=== PATIENT | male | born 1935 | race Caucasian/White ===

== ENCOUNTER → 2016-04-12 | Outpatient (CLI) | payer MEDICARE, OTHER ==
[2016-04-12 11:46] LABS: APPEARANCE,URINE CLEAR; BILIRUBIN,URINE NEGATIVE (NEGATIVE); GLUCOSE, URINE NEGATIVE (NEGATIVE); KETONES,URINE NEGATIVE (NEGATIVE); LEUKOCYTE ESTERASE,URINE NEGATIVE (NEGATIVE); NITRITE,URINE NEGATIVE (NEGATIVE); PROTEIN,URINE NEGATIVE (NEGATIVE); URINE SPECIFIC GRAVITY 1.006; UROBILINOGEN,URINE NEGATIVE mg/dL (<2.0)
[2016-04-12 13:19] LABS: HEMATOCRIT 47.1 % (37.9-51.0); HEMOGLOBIN 15.3 g/dL (13.5-17.0); HGB HCT DIFFERENCE -1.2; MEAN CORPUSCULAR HEMOGLOBIN 29.5 pg (27.0-33.4); MEAN CORPUSCULAR HGB CONC 32.6 g/dL (32.0-36.0); MEAN CORPUSCULAR VOLUME 91 fl (80-97); RED CELL DISTRIBUTION WIDTH 14.2 % (11.5-14.0); WHITE BLOOD COUNT 7.2 10^3/uL (4.0-10.5)
[2016-04-12 13:22] LABS: ANION GAP 13 (5-19); BLOOD UREA NITROGEN 31 mg/dL (7-20); CALCIUM 9.3 mg/dL (8.4-10.2); CARBON DIOXIDE 32 mmol/L (22-30); CHLORIDE 101 mmol/L (98-107); CREATININE RESULT 2.32 mg/dL (0.52-1.25); GLUCOSE 119 mg/dL (75-110); SODIUM 145.9 mmol/L (137-145)
== END ==
LOC: OD 10:17
PROVIDERS: ATTEND Internal Medicine Nephrology
DX: I12.9 Hypertensive chronic kidney disease with stage 1 through stage 4 chronic kidney disease, or unspecified chronic kidney disease (principal); N18.3 Chronic kidney disease, stage 3 (moderate); D64.9 Anemia, unspecified
CPT/HCPCS: 36415; 80048; 81001; 85027

== ENCOUNTER 2016-05-01 10:38 | Emergency (ER) | payer MEDICARE, OTHER ==
--- NOTE | 2016-05-01 10:49 | ER Document Report ---
ED Medical Screen (RME) - General Stated Complaint: POSSIBLE HIGH BLOOD PRESSURE Time seen by provider: 10:48 Mode of Arrival: Ambulatory Information source: Patient Notes: 81-year-old male with a history of hypertension saw Laron Del Cid MD on Tuesday. He has been having unstable erratic blood pressure readings for the past [address] Mulligan increase the clonidine to 0.3 mg stop the amlodipine and he continues to take metoprolol and lasix. Blood pressure last night and this morning was triple over triple and in triage it is 149/87. The only symptom he had was feeling sluggish. TRAVEL OUTSIDE OF THE [place] IN LAST 30 DAYS: No - Related Data Allergies/Adverse Reactions: No Known Drug Allergies Allergy (Verified 02/26/14 15:15) Past Medical History - Past Medical History Cardiac Medical History: Reports: Hx Hypercholesterolemia, Hx Hypertension Denies: Hx Coronary Artery Disease, Hx Heart Attack, Hx Heart Murmur Pulmonary Medical History: Reports: Hx Pneumonia Denies: Hx Asthma, Hx COPD, Hx Respiratory Failure, Hx Sleep Apnea, Hx Tuberculosis Renal/ Medical History: Reports: Hx Benign Prostatic Hyperplasia Malignancy Medical History: Reports Hx Lymphoma Musculoskeltal Medical History: Reports Hx Arthritis - All over Past Surgical History: Reports: Hx Cholecystectomy, Hx Kidney (Renal Surgery) - L NEPHRECTOMY, Hx Orthopedic Surgery - L KNEE - Immunizations Hx Diphtheria, Pertussis, Tetanus Vaccination: No Physical Exam - Vital signs Vitals: Temp Pulse Resp BP 97.7 F 66 20 149/87 H 05/01/16 10:47 05/01/16 10:47 05/01/16 10:47 05/01/16 10:47 Course - Vital Signs Vital signs: Temp Pulse Resp BP Pulse Ox 97.7 F 66 20 149/87 H 96 05/01/16 10:47 05/01/16 10:47 05/01/16 10:47 05/01/16 10:47 05/01/16 10:49
[2016-05-01 11:46] LABS: ABSOLUTE EOSINOPHILS # (AUTO) 0.1 10^3/uL (0.0-0.6); ABSOLUTE LYMPHOCYTES (AUTO) 0.8 10^3/uL (0.5-4.7); ABSOLUTE MONOCYTES (AUTO) 0.4 10^3/uL (0.1-1.4); ABSOLUTE NEUT (AUTO) 3.6 10^3/uL (1.7-8.2); BASOPHILS % (AUTO) 0.5 % (0-2); HEMATOCRIT 43.1 % (37.9-51.0); HEMOGLOBIN 13.9 g/dL (13.5-17.0); HGB HCT DIFFERENCE -1.4; LYMPHOCYTES % (AUTO) 16.7 % (13-45); MEAN CORPUSCULAR HEMOGLOBIN 29.4 pg (27.0-33.4); MEAN CORPUSCULAR HGB CONC 32.3 g/dL (32.0-36.0); MEAN CORPUSCULAR VOLUME 91 fl (80-97); MONOCYTES % (AUTO) 8.8 % (3-13); RED BLOOD COUNT 4.73 10^6/uL (4.35-5.55); RED CELL DISTRIBUTION WIDTH 13.8 % (11.5-14.0); WHITE BLOOD COUNT 4.9 10^3/uL (4.0-10.5)
[2016-05-01] MEDS ORDERED: CLONIDINE HCL 0.1 MG TABLET PO ONE (11:57)
[2016-05-01 12:03] LABS: ALANINE AMINOTRANSFERASE 23 U/L (21-72); ALBUMIN 3.4 g/dL (3.5-5.0); ALKALINE PHOSPHATASE 61 U/L (38-126); ANION GAP 10 (5-19); ASPARTATE AMINO TRANSFERASE 19 U/L (17-59); BLOOD UREA NITROGEN 27 mg/dL (7-20); CALCIUM 8.9 mg/dL (8.4-10.2); CARBON DIOXIDE 33 mmol/L (22-30); CHLORIDE 103 mmol/L (98-107); CREATININE RESULT 2.12 mg/dL (0.52-1.25); GLUCOSE 90 mg/dL (75-110); POTASSIUM 3.7 mmol/L (3.6-5.0); SODIUM 145.8 mmol/L (137-145); TOTAL PROTEIN 6.4 g/dL (6.3-8.2)
[2016-05-01 12:10] LABS: ADD ON TESTING BLD IN LAB ACKNOWLEDGE
--- NOTE | 2016-05-01 12:12 | ER Document Report ---
ED Blood Pressure Problem - General Mode of Arrival: Ambulatory Information source: Patient TRAVEL OUTSIDE OF THE [place] IN LAST 30 DAYS: No - HPI Patient complains to provider of: High blood pressure Onset: This morning Associated symptoms: Other - see above <KALI GARCÍA - Last Filed: 05/01/16 12:45> <GALLO WARNER - Last Filed: 05/01/16 14:16> - General Chief Complaint: Blood Pressure Problem Stated Complaint: POSSIBLE HIGH BLOOD PRESSURE Notes: 81 year old male with history of hypertension and left kidney nephrectomy presents to the ED complaining of an elevated blood pressure that started earlier this morning. Patient states that last week he stopped taking Amlodipine and his Clonadine was adjusted from 0.2 mg to 0.3 mg BID. Patient states he takes his morning dose at 07:00 (took medication prior to arrival) and his afternoon dose at 15:00. Patient has noticed that his blood pressure becomes elevated during the late evenings (220 systolic last night). He states that his blood pressure usually stays around 130/85, but has been varying even before having his medication changed. Patient denies any symptoms at this time. Patient's primary care provider is Dr. Timmons and cardiac cath lab technologist is Dr. Mulligan. (KALI GARCÍA) - Related Data Allergies/Adverse Reactions: No Known Drug Allergies Allergy (Verified 05/01/16 10:55) Past Medical History - General Information source: Patient - Social History Smoking Status: Never Smoker Chew tobacco use (# tins/day): Yes Frequency of alcohol use: None Drug Abuse: None Family History: Reviewed & Not Pertinent Patient has suicidal ideation: No Patient has homicidal ideation: No - Past Medical History Cardiac Medical History: Reports: Hx DVT, Hx Hypercholesterolemia, Hx Hypertension, Hx Peripheral Vascular Disease Pulmonary Medical History: Reports: Hx COPD, Hx Pneumonia Renal/ Medical History: Reports: Hx Benign Prostatic Hyperplasia, Hx Renal Insufficiency - stage 3. 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 Musculoskeltal Medical History: Reports Hx Arthritis - All over, Reports Hx Gout Past Surgical History: Reports: Hx Cholecystectomy, Hx Kidney (Renal Surgery) - L NEPHRECTOMY, Hx Orthopedic Surgery - L KNEE, Hx Vascular Surgery - [place] Filter - Immunizations Hx Diphtheria, Pertussis, Tetanus Vaccination: No Hx Pneumococcal Vaccination: 01/02/14 <KALI GARCÍA - Last Filed: 05/01/16 12:45> Review of Systems - Review of Systems Constitutional: See HPI, Weight loss - 50 pound loss EENT: No symptoms reported Cardiovascular: No symptoms reported Respiratory: No symptoms reported Gastrointestinal: No symptoms reported Genitourinary: No symptoms reported Male Genitourinary: No symptoms reported Musculoskeletal: No symptoms reported Skin: No symptoms reported Hematologic/Lymphatic: No symptoms reported Neurological/Psychological: No symptoms reported -: Yes All other systems reviewed and negative <KALI GARCÍA - Last Filed: 05/01/16 12:45> Physical Exam - Vital signs Interpretation: Hypertensive - General General appearance: Alert In distress: None - HEENT Head: Normocephalic, Atraumatic Eyes: Normal Extraocular movements intact: Yes Pupils: PERRL - Respiratory Respiratory status: No respiratory distress Breath sounds: Normal - Cardiovascular Rhythm: Regular Heart sounds: Normal auscultation - Abdominal Inspection: Obese. No: Normal - Back Back: Normal - Extremities General upper extremity: Normal inspection, Normal ROM General lower extremity: Edema - bilateral peripheral edema, Normal ROM. No: Normal inspection - Neurological Neuro grossly intact: Yes - Psychological Associated symptoms: Normal affect, Normal mood - Skin Skin Temperature: Warm Skin Moisture: Dry Skin Color: Normal <KALI GARCÍA - Last Filed: 05/01/16 12:45> <GALLO WARNER - Last Filed: 05/01/16 14:16> - Vital signs Vitals: Temp Pulse Resp BP 97.7 F 66 20 149/87 H 05/01/16 10:47 05/01/16 10:47 05/01/16 10:47 05/01/16 10:47 (KALI GARCÍA) (GALLO WARNER) Course - Laboratory Result Diagrams: 05/01/16 11:25 05/01/16 11:25 <KALI GARCÍA - Last Filed: 05/01/16 12:45> - Laboratory Result Diagrams: 05/01/16 11:25 05/01/16 11:25 <GALLO WARNER - Last Filed: 05/01/16 14:16> - Re-evaluation Re-evalutation: 05/01/16 14:08 After adding 0.1 mg clonidine, the patient's pressure is now 140 systolic. Change his dosing to 0.2 mg every 8 hours through the weekend and see if that keeps him from having the extreme elevation in blood pressure. 02 (GALLO WARNER) - Vital Signs Vital signs: Temp Pulse Resp BP Pulse Ox 97.7 F 66 18 157/95 H 94 05/01/16 10:47 05/01/16 10:47 05/01/16 13:01 05/01/16 13:01 05/01/16 13:01 (KALI GARCÍA) (GALLO WARNER) - Laboratory Laboratory results interpreted by me: 05/01/16 05/01/16 05/01/16 11:25 11:25 12:00 Plt Count 76 L Sodium 145.8 H Carbon Dioxide 33 H BUN 27 H Creatinine 2.12 H Est GFR ( Amer) 37 L Est GFR (Non-Af Amer) 30 L Albumin 3.4 L Urine Protein 30 H (GALLO WARNER) Discharge <KALI GARCÍA - Last Filed: 05/01/16 12:45> <GALLO WARNER - Last Filed: 05/01/16 14:16> - Discharge Clinical Impression: High blood pressure Qualifiers: Hypertension type: essential hypertension Qualified Code(s): I10 - Essential ( primary) hypertension Condition: Stable Disposition: HOME, SELF-CARE Additional Instructions: Change her clonidine dosing to taking 0.2 mg every 8 hours. The next dose will be at 3 PM, and then at 11 PM. Check your blood pressure before each dose at 7 AM, 3 PM, and 11 PM. Right the number and the time down. Follow-up with your doctor Tuesday to review culture blood pressure does when we changed to 2 every 8 hour dosing. RETURN TO THE EMERGENCY ROOM IF ANY NEW OR WORSENING SYMPTOMS. Referrals: ESEQUIEL TIMMONS MD [Primary Care Provider] - Follow up as needed DEISY MULLIGAN MD [ACTIVE STAFF] - 05/03/16 Scribe Attestation: 05/01/16 14:16 I personally performed the services described in the documentation, reviewed and edited the documentation which was dictated to the scribe in my presence, and it accurately records my words and actions. (GALLO WARNER) Scribe Documentation - Scribe Written by Scribe:: Heavenly Washburn, 05/01/2016 12:16 acting as scribe for :: Denys <KALI GARCÍA - Last Filed: 05/01/16 12:45>
[2016-05-01 12:20] LABS: APPEARANCE,URINE CLEAR; BILIRUBIN,URINE NEGATIVE (NEGATIVE); GLUCOSE, URINE NEGATIVE (NEGATIVE); KETONES,URINE NEGATIVE (NEGATIVE); LEUKOCYTE ESTERASE,URINE NEGATIVE (NEGATIVE); NITRITE,URINE NEGATIVE (NEGATIVE); PROTEIN,URINE 30 mg/dL (NEGATIVE); URINE SPECIFIC GRAVITY 1.006; UROBILINOGEN,URINE NEGATIVE mg/dL (<2.0)
[2016-05-01 12:32] LABS: CREATINE KINASE 73 U/L (55-170)
[2016-05-01 12:43] LABS: CREATINE KINASE MB 2.54 ng/mL (<4.55); TROPONIN I < 0.012 ng/mL
[2016-05-01 14:38] VITALS: BP 164/100
--- NOTE | 2016-05-01 15:15 | EKG REPORT ---
SEVERITY:- BORDERLINE ECG - SINUS RHYTHM BORDERLINE LEFT AXIS DEVIATION BORDERLINE T ABNORMALITIES, INFERIOR LEADS : Confirmed by: Kamilla Tiwari MD 01-May-2016 15:15:19
== END 2016-05-01 14:41 | disposition home or self-care (01) ==
LOC: ER 10:38
DX: I10 Essential (primary) hypertension (principal); E78.00 Pure hypercholesterolemia, unspecified; J44.9 Chronic obstructive pulmonary disease, unspecified; Z90.5 Acquired absence of kidney; Z86.718 Personal history of other venous thrombosis and embolism
CPT/HCPCS: 93005; 99284; 36415; 82553; 82550; 85025; 80053; 81001; 84484; 83880; 71010; 93010; A9270

== ENCOUNTER → 2016-05-03 | Outpatient (CLI) | payer MEDICARE, OTHER | LOC: RAD 07:41 | PROVIDERS: ATTEND Internal Medicine | DX: C82.38 Follicular lymphoma grade IIIa, lymph nodes of multiple sites (principal) | CPT/HCPCS: 71250; 74176 ==

== ENCOUNTER → 2016-06-21 | Outpatient (CLI) | payer MEDICARE, OTHER ==
[2016-06-21 13:16] LABS: ANION GAP 16 (5-19); BLOOD UREA NITROGEN 25 mg/dL (7-20); CALCIUM 9.6 mg/dL (8.4-10.2); CARBON DIOXIDE 28 mmol/L (22-30); CHLORIDE 103 mmol/L (98-107); CREATININE RESULT 2.04 mg/dL (0.52-1.25); GLUCOSE 84 mg/dL (75-110); POTASSIUM 3.9 mmol/L (3.6-5.0); SODIUM 146.8 mmol/L (137-145)
== END ==
LOC: OD 10:59
PROVIDERS: ATTEND Urology
DX: I12.9 Hypertensive chronic kidney disease with stage 1 through stage 4 chronic kidney disease, or unspecified chronic kidney disease (principal); N18.3 Chronic kidney disease, stage 3 (moderate); D64.9 Anemia, unspecified; M10.00 Idiopathic gout, unspecified site; N40.0 Benign prostatic hyperplasia without lower urinary tract symptoms
CPT/HCPCS: 36415; 80048; 84153

== ENCOUNTER 2016-09-03 09:24 | Emergency (ER) | payer MEDICARE, OTHER ==
--- NOTE | 2016-09-03 10:49 | ER Document Report ---
ED GI/ - General Mode of Arrival: Ambulatory Information source: Patient TRAVEL OUTSIDE OF THE [place] IN LAST 30 DAYS: No - HPI Patient complains to provider of: Urinary retention Onset: Other - 2 days ago Associated symptoms: Other - see notes above <KALI GARCÍA - Last Filed: 09/03/16 14:31> <BRADYDINAHGORGE - Last Filed: 09/03/16 14:43> - General Chief Complaint: Inability to Void Stated Complaint: UNABLE TO VOID Time Seen by Provider: 09/03/16 09:45 Notes: 81 year old male with history of left nephrectomy, BPH, COPD, hyperlipidemia, and hypertension presents to the ED complaining of urinary retention that started 2 days ago, but worsened yesterday. Patient reports that he has the urge to urinate, but is only able to pass small drops. Patient does not believe that he has a urinary obstruction. Patient has an appointment with a physician restaurant assistant at Dr. Skinner's (urologist) office in 2 days regarding trouble with his foreskin. Patient denies any abdominal pain. Patient was told to come to the ED by Dr. Mulligan's office. PCP: Dr. Timmons Chemical Educator: Dr. Mulligan Urologist: Dr. Skinner (KALI GARCÍA) - Related Data Allergies/Adverse Reactions: No Known Allergies Allergy (Unverified 09/03/16 10:06) Past Medical History - General Information source: Patient - Social History Smoking Status: Never Smoker Chew tobacco use (# tins/day): Yes Frequency of alcohol use: None Drug Abuse: None Family History: Reviewed & Not Pertinent Patient has suicidal ideation: No Patient has homicidal ideation: No - Past Medical History Cardiac Medical History: Reports: Hx DVT, Hx Hypercholesterolemia, Hx Hypertension, Hx Peripheral Vascular Disease Pulmonary Medical History: Reports: Hx COPD, Hx Pneumonia Renal/ Medical History: Reports: Hx Benign Prostatic Hyperplasia, Hx Renal Insufficiency - stage 3. 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 Musculoskeltal Medical History: Reports Hx Arthritis - All over, Reports Hx Gout Past Surgical History: Reports: Hx Cholecystectomy, Hx Kidney (Renal Surgery) - L NEPHRECTOMY, Hx Orthopedic Surgery - L KNEE, Hx Vascular Surgery - [place] Filter - Immunizations Hx Diphtheria, Pertussis, Tetanus Vaccination: No Hx Pneumococcal Vaccination: 01/02/14 <KALI GARCÍA - Last Filed: 09/03/16 14:31> Review of Systems - Review of Systems Constitutional: No symptoms reported EENT: No symptoms reported Cardiovascular: No symptoms reported Respiratory: No symptoms reported Gastrointestinal: No symptoms reported. denies: Abdominal pain Genitourinary: See HPI, Retention Male Genitourinary: No symptoms reported Musculoskeletal: No symptoms reported Skin: No symptoms reported Hematologic/Lymphatic: No symptoms reported Neurological/Psychological: No symptoms reported -: Yes All other systems reviewed and negative <KALI GARCÍA - Last Filed: 09/03/16 14:31> Physical Exam <KALI GARCÍA - Last Filed: 09/03/16 14:31> <GORGE MEADOWS - Last Filed: 09/03/16 14:43> - Vital signs Vitals: Temp Pulse Resp BP Pulse Ox 97.8 F 66 18 179/101 H 97 09/03/16 09:27 09/03/16 09:27 09/03/16 09:27 09/03/16 09:27 09/03/16 09:27 - Notes Notes: GENERAL: Alert, interacts well. No acute distress. HEAD: Normocephalic, atraumatic. EYES: Pupils equal, round, and reactive to light. Extraocular movements intact. ENT: Oral mucosa moist, tongue midline. NECK: Full range of motion. Supple. Trachea midline. LUNGS: Clear to auscultation bilaterally, no wheezes, rales, or rhonchi. No respiratory distress. HEART: Regular rate and rhythm. No murmurs, gallops, or rubs. ABDOMEN: Soft. Non-distended. Bowel sounds present in all 4 quadrants. Suprapubic tenderness to palpation. No masses are palpated. Obese. EXTREMITIES: Moves all 4 extremities spontaneously. No edema, radial and dorsalis pedis pulses 2/4 bilaterally. No cyanosis. NEUROLOGICAL: Alert and oriented x3. Normal speech. PSYCH: Normal affect, normal mood. SKIN: Warm, dry, normal turgor. No rashes or lesions noted. (KALI GARCÍA) Course - Laboratory Result Diagrams: 09/03/16 10:50 09/03/16 10:50 <KALI GARCÍA - Last Filed: 09/03/16 14:31> - Laboratory Result Diagrams: 09/03/16 10:50 09/03/16 10:50 <GORGE MEADOWS - Last Filed: 09/03/16 14:43> - Re-evaluation Re-evalutation: 09/03/16 12:26 CBC unremarkable with the exception of low platelets at 79, BMP shows chronic renal failure with a BUN of 28 and creatinine of 2.4 this is not significantly changed from the past 4 months, urinalysis shows small blood but no signs of infection, Chan catheter was placed and immediately there was 500 mL's of clear yellow urine out and over the past hour another 500 mL's has been obtained. This is consistent with urinary retention from likely obstruction coming from his enlarged prostate. Patient will be discharged home with Chan catheter in place, he has a follow-up appointment with his urologist on Tuesday. (GORGE MEADOWS) - Vital Signs Vital signs: Temp Pulse Resp BP Pulse Ox 97.5 F 59 L 16 170/96 H 94 09/03/16 12:31 09/03/16 12:31 09/03/16 11:15 09/03/16 12:31 09/03/16 12:31 - Laboratory Laboratory results interpreted by me: 09/03/16 09/03/16 09/03/16 10:50 10:50 10:50 RDW 14.2 H Plt Count 79 L Carbon Dioxide 31 H BUN 28 H Creatinine 2.40 H Est GFR ( Amer) 32 L Est GFR (Non-Af Amer) 26 L Urine Blood SMALL H Discharge <KALI GARCÍA - Last Filed: 09/03/16 14:31> <GORGE MEADOWS - Last Filed: 09/03/16 14:43> - Discharge Clinical Impression: Acute urinary retention, Enlarged prostate with urinary retention, Chronic kidney disease (CKD), stage III (moderate) Condition: Stable Disposition: HOME, SELF-CARE Additional Instructions: Chan Catheter Care Tube Position: Keep the catheter connected to the drainage tubing at all times. Avoid pulling on the catheter. Keep the drainage tube taped to the mid- thigh, on top of your leg (not underneath it). Be sure there are no kinks or loops in the tube. Keep the drainage bag below the bladder. When in bed, the drainage bag should hang below the abdomen but should not lie on the floor. The drainage bag has hooks at the top so it can be hung on a chair or bed. Daily Cleaning: Wash your hands with soap and water before and after caring for your catheter. Twice a day, clean yourself where the catheter goes into the urethra. Use a warm, soapy wash cloth to clean around the urethral opening and the first few inches of the catheter. Females should wash from front to back to decrease the risk of infection from fecal material. After washing with soap, rinse the area with water. Do not put powder around the catheter. Apply ointment only if instructed by your doctor or nurse. Follow up if you develop fever or chills, flank or abdominal pain, blood in the urine, or if urine is not draining into the catheter. Please keep your follow-up appointment with your urologist on Tuesday. Referrals: ESEQUIEL TIMMONS MD [Primary Care Provider] - Follow up as needed Scribe Attestation: 09/03/16 14:43 I personally performed the services described in the documentation, reviewed and edited the documentation which was dictated to the scribe in my presence, and it accurately records my words and actions. (GORGE MEADOWS) Scribe Documentation - Scribe Written by Heavenly:: Heavenly Washburn, 09/03/2016 1432 acting as scribe for :: Marni <KALI GARCÍA - Last Filed: 09/03/16 14:31>
[2016-09-03 11:13] LABS: ABSOLUTE LYMPHOCYTES (AUTO) 0.9 10^3/uL (0.5-4.7); ABSOLUTE MONOCYTES (AUTO) 0.4 10^3/uL (0.1-1.4); ABSOLUTE NEUT (AUTO) 4.3 10^3/uL (1.7-8.2); BASOPHILS % (AUTO) 0.5 % (0-2); EOSINOPHILS % (AUTO) 0.6 % (0-6); HEMATOCRIT 45.4 % (37.9-51.0); HEMOGLOBIN 14.5 g/dL (13.5-17.0); HGB HCT DIFFERENCE -1.9; LYMPHOCYTES % (AUTO) 15.3 % (13-45); MEAN CORPUSCULAR HEMOGLOBIN 29.2 pg (27.0-33.4); MEAN CORPUSCULAR VOLUME 91 fl (80-97); RED BLOOD COUNT 4.98 10^6/uL (4.35-5.55); RED CELL DISTRIBUTION WIDTH 14.2 % (11.5-14.0); SEGMENTED NEUTROPHILS % (AUTO) 76.6 % (42-78); WHITE BLOOD COUNT 5.7 10^3/uL (4.0-10.5)
[2016-09-03 11:17] LABS: APPEARANCE,URINE CLEAR; BILIRUBIN,URINE NEGATIVE (NEGATIVE); GLUCOSE, URINE NEGATIVE (NEGATIVE); KETONES,URINE NEGATIVE (NEGATIVE); LEUKOCYTE ESTERASE,URINE NEGATIVE (NEGATIVE); NITRITE,URINE NEGATIVE (NEGATIVE); PROTEIN,URINE NEGATIVE (NEGATIVE); URINE SPECIFIC GRAVITY 1.004; UROBILINOGEN,URINE NEGATIVE mg/dL (<2.0)
[2016-09-03 11:27] LABS: ANION GAP 12 (5-19); BLOOD UREA NITROGEN 28 mg/dL (7-20); CALCIUM 9.3 mg/dL (8.4-10.2); CARBON DIOXIDE 31 mmol/L (22-30); CHLORIDE 102 mmol/L (98-107); GLUCOSE 93 mg/dL (75-110); POTASSIUM 3.9 mmol/L (3.6-5.0); SODIUM 144.6 mmol/L (137-145)
[2016-09-03 12:33] VITALS: BP 170/96
== END 2016-09-03 12:50 | disposition home or self-care (01) ==
LOC: ER 09:24
DX: N40.0 Benign prostatic hyperplasia without lower urinary tract symptoms (principal); R33.9 Retention of urine, unspecified; I12.9 Hypertensive chronic kidney disease with stage 1 through stage 4 chronic kidney disease, or unspecified chronic kidney disease; N18.3 Chronic kidney disease, stage 3 (moderate); J44.9 Chronic obstructive pulmonary disease, unspecified; E78.5 Hyperlipidemia, unspecified
CPT/HCPCS: 36415; 51702; 80048; 81001; 85025; 99284

== ENCOUNTER → 2016-09-20 | Outpatient (CLI) | payer MEDICARE, OTHER ==
[2016-09-20 11:20] LABS: HEMATOCRIT 44.7 % (37.9-51.0); HEMOGLOBIN 14.3 g/dL (13.5-17.0); HGB HCT DIFFERENCE -1.8; MEAN CORPUSCULAR HEMOGLOBIN 28.7 pg (27.0-33.4); MEAN CORPUSCULAR HGB CONC 31.9 g/dL (32.0-36.0); MEAN CORPUSCULAR VOLUME 90 fl (80-97); RED BLOOD COUNT 4.96 10^6/uL (4.35-5.55); RED CELL DISTRIBUTION WIDTH 14.3 % (11.5-14.0); WHITE BLOOD COUNT 6.7 10^3/uL (4.0-10.5)
[2016-09-20 11:28] LABS: APPEARANCE,URINE CLEAR; BILIRUBIN,URINE NEGATIVE (NEGATIVE); CALCIUM OXALATE CRYSTALS,URINE FEW /HPF; GLUCOSE, URINE NEGATIVE (NEGATIVE); KETONES,URINE NEGATIVE (NEGATIVE); LEUKOCYTE ESTERASE,URINE NEGATIVE (NEGATIVE); NITRITE,URINE NEGATIVE (NEGATIVE); PROTEIN,URINE 30 mg/dL (NEGATIVE); URINE SPECIFIC GRAVITY 1.005; UROBILINOGEN,URINE NEGATIVE mg/dL (<2.0)
[2016-09-20 11:51] LABS: ANION GAP 11 (5-19); BLOOD UREA NITROGEN 25 mg/dL (7-20); CALCIUM 8.9 mg/dL (8.4-10.2); CARBON DIOXIDE 31 mmol/L (22-30); CHLORIDE 101 mmol/L (98-107); CREATININE RESULT 2.33 mg/dL (0.52-1.25); GLUCOSE 98 mg/dL (75-110); POTASSIUM 4.1 mmol/L (3.6-5.0); SODIUM 143.3 mmol/L (137-145)
== END ==
LOC: OD 10:38
PROVIDERS: ATTEND Internal Medicine Nephrology
DX: I12.9 Hypertensive chronic kidney disease with stage 1 through stage 4 chronic kidney disease, or unspecified chronic kidney disease (principal); N18.4 Chronic kidney disease, stage 4 (severe); D64.9 Anemia, unspecified
CPT/HCPCS: 36415; 80048; 81001; 85027

== ENCOUNTER → 2016-10-04 | Outpatient (CLI) | payer MEDICARE, OTHER ==
[2016-10-04 14:39] LABS: ANION GAP 10 (5-19); BLOOD UREA NITROGEN 27 mg/dL (7-20); CARBON DIOXIDE 32 mmol/L (22-30); CHLORIDE 101 mmol/L (98-107); CREATININE RESULT 2.23 mg/dL (0.52-1.25); GLUCOSE 86 mg/dL (75-110); POTASSIUM 4.1 mmol/L (3.6-5.0); SODIUM 142.6 mmol/L (137-145)
== END ==
LOC: OD 12:27
PROVIDERS: ATTEND Urology
DX: Z01.812 Encounter for preprocedural laboratory examination (principal); N40.1 Benign prostatic hyperplasia with lower urinary tract symptoms
CPT/HCPCS: 36415; 80048

== ENCOUNTER → 2016-11-15 | Outpatient (CLI) | payer MEDICARE, OTHER ==
--- NOTE | 2016-11-15 08:16 | RADIOLOGY REPORT (SQ) ---
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 Reconstructed coronal and sagittal MPR images reviewed. All images stored on PAC S. All CT scanners at this facility use dose modulation, iterative reconstruction, and/or weight based d osing when appropriate to reduce radiation dose to as low as reasonably achievable (ALARA). [facility]: Dose Right [facility]: CareDose [facility]: Dose Right [facility]: Teradose 4D [facility]: [employer] RADIATION DOSE: 17 mGy. LIMITATIONS: No IV contrast FINDINGS: SKULL BASE: On axial image 12, the basilar tip is enlarged, 7 to 8 mm in diameter. MRA ex am [place] recommended to exclude aneurysm. MAJOR SALIVARY GLANDS: No solid or cystic masses. No inflammatory changes. LYMPHADENOPATHY: No adenopathy. MUCOSAL MASSES OR ASYMMETRY: No mucosal masses or asymmetry. LARYNX/CORDS: No abnormal findings. LUNG APICES: Clear. BONES: Advanced multilevel degenerative disc changes, age-appropriate THYROID: Normal size. No masses. PARANASAL SINUSES: Clear. OTHER: No other significant finding. IMPRESSION: No cervical adenopathy. Prominent basilar artery tip, [place] MRA recommended for follow up TECHNICAL DOCUMENTATION: JOB ID: [id number] Quality ID # [id number]: Final reports with documentation of one or more dose reduction techniques (e.g., Au tomated exposure control, adjustment of the mA and/or kV according to patient size, use of iterative reconstruction technique) 2010 [employer]- All Rights Reserved
--- NOTE | 2016-11-15 08:31 | RADIOLOGY REPORT (SQ) ---
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 Images reviewed with lung, soft tissue, and bone windows. Reconstructed coronal and sagittal MPR images revi ewed. All images stored on PACS. All CT scanners at this facility use dose modulation, iterative reconstruction, and/or weight based d osing when appropriate to reduce radiation dose to as low as reasonably achievable (ALARA). [facility]: Dose Right [facility]: CareDose [facility]: Dose Right [facility]: Teradose 4D [facility]: [employer] RADIATION DOSE: 22.8mGy. LIMITATIONS: None. FINDINGS: LOWER CHEST: See chest CT report. NON-CONTRASTED LIVER, SPLEEN, ADRENALS: Evaluation limited by lack of IV contrast. No identified sign ificant masses. PANCREAS: No masses. No peripancreatic inflammatory changes. GALLBLADDER: Surgically absent. RIGHT KIDNEY AND URETER: Multiple stable cysts. No suspicious masses. Assessment limited by lack of IV contrast. No significant calcifications. No hydronephrosis or hydroureter. LEFT KIDNEY AND URETER: Previously removed. AORTA AND RETROPERITONEUM: IVC filter is noted in place. No aneurysm. No retroperitoneal masses or a denopathy. BOWEL AND PERITONEAL CAVITY: No obvious masses or inflammatory changes. No free fluid. APPENDIX: Normal. PELVIS, BLADDER, AND ABDOMINAL WALL:No abnormal masses. No free fluid. Bladder normal. Small fat con taining umbilical hernia not felt to be significant. BONES: No significant findings. OTHER: No other significant finding. IMPRESSION: Stable abdomen and pelvis CT. No evidence of residual or recurrent lymphoma. TECHNICAL DOCUMENTATION: JOB ID: [id number] Quality ID # [id number]: Final reports with documentation of one or more dose reduction techniques (e.g., Au tomated exposure control, adjustment of the mA and/or kV according to patient size, use of iterative reconstruction technique) 2010 [employer]- All Rights Reserved
--- NOTE | 2016-11-15 09:01 | RADIOLOGY REPORT (SQ) ---
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 Images reviewed with lung, soft tissue and bone windows. Reconstructed coronal and sagittal MPR images reviewed. All images st ored on PACS. All CT scanners at this facility use dose modulation, iterative reconstruction, and/or weight based d osing when appropriate to reduce radiation dose to as low as reasonably achievable (ALARA). [facility]: Dose Right [facility]: CareDose [facility]: Dose Right [facility]: Teradose 4D [facility]: [employer] RADIATION DOSE: 22.8 mGy. LIMITATIONS: No technical limitations. FINDINGS: LUNGS AND PLEURA: Chronic scarring. No masses, infiltrates, pneumothorax. No pleural eff usions, calcifications. HILAR AND MEDIASTINAL STRUCTURES: No identified masses or abnormal nodes. No obvious aneurysm. HEART AND VASCULAR STRUCTURES: No aneurysm. No pericardial effusion. Mild coronary artery calcifica tions. Mild aortic valve calcifications. UPPER ABDOMEN: See abdomen CT report. THYROID AND OTHER SOFT TISSUES: No masses. No adenopathy. BONES: No significant finding. HARDWARE: None in the chest. OTHER: No other significant findings. IMPRESSION: Stable chest CT. No evidence of residual or recurrent lymphoma. TECHNICAL DOCUMENTATION: JOB ID: [id number] Quality ID # [id number]: Final reports with documentation of one or more dose reduction techniques (e.g., Au tomated exposure control, adjustment of the mA and/or kV according to patient size, use of iterative reconstruction technique) 2010 [employer]- All Rights Reserved
== END ==
LOC: RAD 07:26
PROVIDERS: ATTEND Internal Medicine
DX: C82.38 Follicular lymphoma grade IIIa, lymph nodes of multiple sites (principal)
CPT/HCPCS: 70490; 71250; 74176

== ENCOUNTER → 2016-11-23 | Outpatient (CLI) | payer MEDICARE, OTHER ==
[2016-11-23 11:26] LABS: HEMATOCRIT 43.1 % (37.9-51.0); HEMOGLOBIN 14.2 g/dL (13.5-17.0); HGB HCT DIFFERENCE -0.5; MEAN CORPUSCULAR HEMOGLOBIN 30.3 pg (27.0-33.4); MEAN CORPUSCULAR HGB CONC 32.9 g/dL (32.0-36.0); MEAN CORPUSCULAR VOLUME 92 fl (80-97); RED BLOOD COUNT 4.68 10^6/uL (4.35-5.55); RED CELL DISTRIBUTION WIDTH 14.3 % (11.5-14.0); WHITE BLOOD COUNT 6.1 10^3/uL (4.0-10.5)
[2016-11-23 11:42] LABS: ANION GAP 12 (5-19); BLOOD UREA NITROGEN 31 mg/dL (7-20); CALCIUM 9.4 mg/dL (8.4-10.2); CARBON DIOXIDE 29 mmol/L (22-30); CHLORIDE 102 mmol/L (98-107); CREATININE RESULT 2.42 mg/dL (0.52-1.25); GLUCOSE 97 mg/dL (75-110); POTASSIUM 4.2 mmol/L (3.6-5.0); SODIUM 143.2 mmol/L (137-145)
== END ==
LOC: OD 10:27
PROVIDERS: ATTEND Urology
DX: N18.9 Chronic kidney disease, unspecified (principal)
CPT/HCPCS: 36415; 80048; 85027

== ENCOUNTER → 2016-12-16 | Outpatient (CLI) | payer MEDICARE, OTHER ==
[2016-12-16 15:27] LABS: HEMATOCRIT 40.4 % (37.9-51.0); HEMOGLOBIN 13.7 g/dL (13.5-17.0); HGB HCT DIFFERENCE 0.7; MEAN CORPUSCULAR HEMOGLOBIN 30.8 pg (27.0-33.4); MEAN CORPUSCULAR VOLUME 91 fl (80-97); RED BLOOD COUNT 4.45 10^6/uL (4.35-5.55); RED CELL DISTRIBUTION WIDTH 14.9 % (11.5-14.0); WHITE BLOOD COUNT 6.9 10^3/uL (4.0-10.5)
[2016-12-17 10:26] LABS: ANION GAP 12 (5-19); BLOOD UREA NITROGEN 34 mg/dL (7-20); CALCIUM 9.2 mg/dL (8.4-10.2); CARBON DIOXIDE 28 mmol/L (22-30); CHLORIDE 103 mmol/L (98-107); CREATININE RESULT 2.53 mg/dL (0.52-1.25); GLUCOSE 94 mg/dL (75-110); MAGNESIUM 2.3 mg/dL (1.6-2.3); POTASSIUM 4.2 mmol/L (3.6-5.0); SODIUM 142.8 mmol/L (137-145)
== END ==
LOC: OD 13:55
PROVIDERS: ATTEND Internal Medicine Nephrology
DX: I12.9 Hypertensive chronic kidney disease with stage 1 through stage 4 chronic kidney disease, or unspecified chronic kidney disease (principal); N18.3 Chronic kidney disease, stage 3 (moderate); D64.9 Anemia, unspecified; R60.9 Edema, unspecified; M10.00 Idiopathic gout, unspecified site
CPT/HCPCS: 36415; 80048; 83735; 85027

== ENCOUNTER → 2016-12-17 | Outpatient (CLI) | payer MEDICARE, OTHER ==
--- NOTE | 2016-12-17 09:25 | RADIOLOGY REPORT (SQ) ---
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 TECHNIQUE: Axial 3-D [id number] acquisition imaging performed through the brain in the area of t he [place]. Images reformatted using 3-D MIPS. LIMITATIONS: None. FINDINGS: SOURCE IMAGES: 3.5 mm saccular aneurysm at the basilar posterior cerebral bifurcation. 3-D MIP: No occlusions. No significant stenosis. OTHER: No other significant finding. 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 TECHNICAL DOCUMENTATION: JOB ID: [id number] [employer]- All Rights Reserved
== END ==
LOC: RAD 07:35
PROVIDERS: ATTEND Internal Medicine
DX: I67.1 Cerebral aneurysm, nonruptured (principal)
CPT/HCPCS: 70544

== ENCOUNTER 2017-01-04 10:27 | Day surgery (SDC) | payer MEDICARE, OTHER ==
[~2017-01-04 10:27] MED LIST: BUPIVACAINE HCL 0.75% INJ/PF (7.5 MG/1 ML) 10 ML SDV OS PRN; KETOROLAC TROMETHAMINE 0.45% 4 DROP/0.4 ML DROPERETTE OS PRN; LIDOCAINE 3.5% OPH GEL/PF 1 ML/TUBE OS PRN; LIDOCAINE 4% INJ/PF (40 MG/ML) 5 ML AMPUL OS PRN
[2017-01-04] MEDS ORDERED: PHENYLEPHRINE/KETOROLAC 1%-0.3% 4 ML VIAL ONE (10:43)
[2017-01-04] MEDS ORDERED: LIDOCAINE 1% INJ-PF (10 MG/ML) 30 ML SDV ONE (10:44)
[2017-01-04] MEDS ORDERED: CHONDR SU A NA/HYALUR INTRAOC KIT (SURGICARE) ONE (10:44)
[2017-01-04] MEDS: TROPICAMIDE 1% OPH SOLN 3 ML OS PRN ×3 (10:46→11:07)
[2017-01-04] MEDS: CYCLOPENTOLATE 0.2%/PHENYLEPHRINE 1% OPH SOLN 2 ML OS PRN ×3 (10:46→11:07)
[2017-01-04] MEDS: BESIFLOXACIN HCL 0.6% OPH SUSP 5 ML BOTTLE OS PRN ×3 (10:46→11:48)
[2017-01-04] MEDS: TETRACAINE HCL 0.5% OPH SOLN 0.6 ML DROPERETTE OS PRN ×2 (10:47→11:07)
[2017-01-04] MEDS ORDERED: MIDAZOLAM 2 MG/2 ML INJ ONE (11:07)
--- NOTE | 2017-01-04 12:12 | [facility] OPERATIVE REPORT E ---
[facility] Operative Report NAME: PEG WHITNEY AGE: 81Y DATE OF SURGERY: 01/04/2017 ROOM: PREOPERATIVE DIAGNOSIS: 1. CATARACT, LEFT EYE: 2. PUPIL MIOSIS, LEFT EYE. POSTOPERATIVE DIAGNOSIS: 1. CATARACT, LEFT EYE. 2. PUPIL MIOSIS, LEFT EYE. PROCEDURE PERFORMED: Complex cataract extraction with intraocular lens, left eye. SURGEON: RENEE JOSHUA M.D. ANESTHESIA: Topical with MAC. PROCEDURE: The patient was brought to the operating room and placed on the operating table. Topical anesthesia was administered. This consisted of instrument wipe pledgets soaked in a solution of 4% Xylocaine mixed with 0.75% Marcaine in a 1:2 ratio. A 2 x 1 cm pledget was placed in the superior fornix. A 1 x 1 cm pledget was placed in the inferior fornix. The eye was patched shut for 5 minutes. The patch and pledgets were removed. The eye was sterilely prepped and draped in the usual manner. A lid speculum was placed in the eye. A 4-0 black silk suture was placed around the superior and inferior rectus muscles to use as traction. A conjunctival peritomy was made at the 10 o'clock position. Hemostasis was attained with bipolar cautery. A posterior limbal groove was created using a crescent knife and dissected anteriorly towards the cornea. A sharp point blade was used to create a paracentesis site at the 2 o'clock position. A 2.4 mm keratome was used to enter the anterior chamber through the groove. Then 0.5 mL of 1% nonpreserved lidocaine was injected into the anterior chamber. Viscoelastic was injected into the anterior chamber. Pupil dilation was approximately 4.5 mm. A Malyugin Ring was placed stabilizing the iris. An anterior capsulotomy was performed using Utrata forceps in a capsulorrhexis fashion. Hydrodissection and hydrodelineation were performed. Phacoemulsification was performed in a sxgova-nsu-xyntatl technique. A total of 50 seconds total phaco time was used. Following this, the I/A unit was used to remove residual cortex. Viscoelastic was injected into the capsular bag. Intraocular lens model SN60WF; 20.5 diopter, serial number [id number] was placed in the capsular bag. The Malyugin ring haptics were removed and the ring was removed from the eye. The I/A unit was used to remove residual viscoelastic. The wound was seen to be watertight under high and low pressure and no sutures were placed. The 4-0 black silk sutures and lid speculum were removed. The eye was shielded after Besivance drops were placed. The patient tolerated the procedure well and was sent to the recovery room in good condition. DICTATING PHYSICIAN: RENEE JOSHUA M.D. [id number] PHY#: [id number] ID: [id number] JOB#: [id number] ACCT: [id number] cc:RENEE JOSHUA M.D. >
--- NOTE | 2017-01-04 12:13 | [facility] DISCHARGE SUMMARY E ---
[facility] Discharge Summary NAME: PEG WHITNEY AGE: 81Y ADMITTED: 01/04/2017 DISCHARGED: 01/04/2017 PREOPERATIVE DIAGNOSIS: CATARACT, LEFT EYE. POSTOPERATIVE DIAGNOSIS: CATARACT, LEFT EYE. HOSPITAL COURSE: Patient is a 81-year-old gentleman who underwent uneventful complex cataract extraction with intraocular lens implant, left eye, on 01/04/2017. DISPOSITION: He will be discharged to home. He is instructed to resume preoperative medications; take Tylenol as needed for discomfort; to keep his eye shielded; to use Besivance, Durezol, and Ilevro at 3:00 p.m. and 8:00 p.m.; and to follow up in my office in 1 day. DICTATING PHYSICIAN: RENEE JOSHUA M.D. [id number] PHY#: [id number] ID: [id number] JOB#: [id number] ACCT: [id number] cc:RENEE JOSHUA M.D. >
== END 2017-01-04 12:34 | disposition home or self-care (01) ==
LOC: SC 10:27
PROVIDERS: ATTEND Ophthalmology
PROC: 08RK3JZ Replacement of Left Lens with Synthetic Substitute, Percutaneous Approach (ICD-10-PCS; principal; 2017-01-04 11:30)
DX: H25.813 Combined forms of age-related cataract, bilateral (principal); H57.03 Miosis; H04.123 Dry eye syndrome of bilateral lacrimal glands; H43.811 Vitreous degeneration, right eye; I10 Essential (primary) hypertension; K21.9 Gastro-esophageal reflux disease without esophagitis; Z79.899 Other long term (current) drug therapy; Z86.718 Personal history of other venous thrombosis and embolism
CPT/HCPCS: 66982; V2632; J2250; J3490 ×4; A9270; C9447; 142

== ENCOUNTER 2017-01-25 09:16 | Day surgery (SDC) | payer MEDICARE, OTHER ==
[~2017-01-25 09:16] MED LIST changes: -BUPIVACAINE HCL 0.75% INJ/PF (7.5 MG/1 ML) 10 ML SDV OS PRN; +KETOROLAC TROMETHAMINE 0.45% 4 DROP/0.4 ML DROPERETTE OD PRN; -KETOROLAC TROMETHAMINE 0.45% 4 DROP/0.4 ML DROPERETTE OS PRN; -LIDOCAINE 3.5% OPH GEL/PF 1 ML/TUBE OS PRN; -LIDOCAINE 4% INJ/PF (40 MG/ML) 5 ML AMPUL OS PRN
[2017-01-25] MEDS: TETRACAINE HCL 0.5% OPH SOLN 0.6 ML DROPERETTE OD PRN ×2 (10:07→10:32)
[2017-01-25] MEDS: CYCLOPENTOLATE 0.2%/PHENYLEPHRINE 1% OPH SOLN 2 ML OD PRN ×3 (10:08→10:32)
[2017-01-25] MEDS: TROPICAMIDE 1% OPH SOLN 3 ML OD PRN ×3 (10:08→10:32)
[2017-01-25] MEDS: BESIFLOXACIN HCL 0.6% OPH SUSP 5 ML BOTTLE OD PRN ×4 (10:09→11:18)
[2017-01-25] MEDS ORDERED: MIDAZOLAM 2 MG/2 ML INJ ONE (10:37)
[2017-01-25] MEDS ORDERED: FENTANYL CITRATE INJ/PF 100 MCG/2 ML AMPUL ONE (10:38)
[2017-01-25] MEDS: BUPIVACAINE HCL 0.75% INJ/PF (7.5 MG/1 ML) 10 ML SDV OD PRN ×2 (10:52)
[2017-01-25] MEDS: LIDOCAINE 4% INJ/PF (40 MG/ML) 5 ML AMPUL OD PRN ×2 (10:52)
[2017-01-25] MEDS: LIDOCAINE 1% INJ-PF (10 MG/ML) 30 ML SDV ONE ×2 (11:05)
[2017-01-25] MEDS: CHONDR SU A NA/HYALUR INTRAOC KIT (SURGICARE) ONE ×2 (11:05)
[2017-01-25] MEDS: PHENYLEPHRINE/KETOROLAC 1%-0.3% 4 ML VIAL ONE ×2 (11:05)
--- NOTE | 2017-01-25 12:12 | [facility] DISCHARGE SUMMARY E ---
[facility] Discharge Summary NAME: PEG WHITNEY AGE: 82Y ADMITTED: 01/25/2017 DISCHARGED: 01/25/2017 PREOPERATIVE DIAGNOSIS: Cataract, right eye. POSTOPERATIVE DIAGNOSIS: Cataract, right eye. HOSPITAL COURSE: The patient is an 82-year-old gentleman who underwent uneventful cataract extraction with intraocular lens implant, right eye, on 01/25/2017. He will be discharged to home. He was instructed to resume preoperative medications, take Tylenol as needed for discomfort, to keep his eye shielded, to use Besivance, Durezol, and Ilevro at 3 p.m. and 8 p.m., and to followup in my office in 1 day. DICTATING PHYSICIAN: RENEE JOSHUA M.D. [id number] PHY#: [id number] ID: [id number] JOB#: [id number] ACCT: [id number] cc:RENEE JOSHUA M.D. >
--- NOTE | 2017-01-25 12:12 | [facility] OPERATIVE REPORT E ---
[facility] Operative Report NAME: PEG WHITNEY AGE: 82Y DATE OF SURGERY: 01/25/2017 ROOM: PREOPERATIVE DIAGNOSIS: Cataract, right eye. POSTOPERATIVE DIAGNOSIS: Cataract, right eye. PROCEDURE PERFORMED: Phacoemulsification with posterior chamber intraocular lens, right eye. SURGEON: Debi Joshua MD ANESTHESIA: Topical with MAC. INDICATIONS FOR SURGERY: Difficulty with driving at night and glare. Best corrected visual acuity 20/40. PROCEDURE: The patient was brought to the operating room and placed on the operative table. Following tetracaine drops, topical anesthesia was administered. This consisted of instrument wipe pledgets soaked in a solution of 4% Xylocaine mixed with 0.75% Marcaine in a 1:2 ratio. A 2 x 1 cm pledget was placed in the superior fornix. A 1 x 1 cm pledget was placed in the inferior fornix. The eye was patched shut for 5 minutes. The patch was removed. The eye was sterilely prepped and draped in the usual manner. Lid speculum was placed in the eye. The pledgets were removed. 4-0 black silk sutures were placed around the superior and the inferior rectus muscles to be used as traction. A conjunctival peritomy was made at the 10 o'clock position. Hemostasis was obtained with bipolar cautery. A posterior limbal groove was created using a crescent knife and dissected anteriorly towards the cornea. A sharp point blade was used to create a paracentesis site at the 2 o'clock position. A 2.4 mm keratome was used to enter the anterior chamber through the groove. Viscoelastic was injected into the anterior chamber. An anterior capsulotomy was performed using Utrata forceps in a capsulorrhexis fashion. Hydrodissection and hydrodelineation were performed. Phacoemulsification was performed in dgdooz-whz-rnymrcd technique. A total of 7.06 CDE phaco time was used. Following this, the I/A unit was used to remove residual cortex. Viscoelastic was injected into the capsular bag. Intraocular lens model SN60WF, 20.0 diopters, serial number [id number] was placed in the capsular bag. The I/A unit was used to remove residual viscoelastic. The wound was seen to be watertight under high and low pressure, and no sutures were placed. The intraocular lens was well centered. The pressure was adjusted in the eye to normal pressure. The 4-0 black silk sutures and lid speculum were removed. The eye was shielded after Besivance drops were placed. The patient tolerated the procedure well and was sent to the recovery room in good condition. DICTATING PHYSICIAN: DEBI JOSHUA M.D. [id number] PHY#: [id number] ID: [id number] JOB#: [id number] ACCT: [id number] cc:DEBI JOSHUA M.D. >
== END 2017-01-25 12:24 | disposition home or self-care (01) ==
LOC: SC 09:16
PROVIDERS: ATTEND Ophthalmology
PROC: 08R Eye, Replacement (ICD-10-PCS; principal; 2017-01-25 11:00)
DX: H25.811 Combined forms of age-related cataract, right eye (principal); H57.03 Miosis; Z96.1 Presence of intraocular lens; I10 Essential (primary) hypertension; F17.220 Nicotine dependence, chewing tobacco, uncomplicated; K21.9 Gastro-esophageal reflux disease without esophagitis; Z79.899 Other long term (current) drug therapy; Z90.5 Acquired absence of kidney
CPT/HCPCS: 66984; V2632; J2250; J3490 ×4; A9270; J3010; C9447; 142

== ENCOUNTER → 2017-03-17 | Outpatient (CLI) | payer MEDICARE, OTHER ==
[2017-03-17 11:00] LABS: HEMATOCRIT 41.1 % (37.9-51.0); HEMOGLOBIN 13.5 g/dL (13.5-17.0); HGB HCT DIFFERENCE -0.6; MEAN CORPUSCULAR HEMOGLOBIN 29.7 pg (27.0-33.4); MEAN CORPUSCULAR HGB CONC 32.9 g/dL (32.0-36.0); MEAN CORPUSCULAR VOLUME 90 fl (80-97); RED BLOOD COUNT 4.56 10^6/uL (4.35-5.55); RED CELL DISTRIBUTION WIDTH 13.8 % (11.5-14.0); WHITE BLOOD COUNT 6.6 10^3/uL (4.0-10.5)
[2017-03-17 11:07] LABS: APPEARANCE,URINE CLEAR; BILIRUBIN,URINE NEGATIVE (NEGATIVE); GLUCOSE, URINE NEGATIVE (NEGATIVE); KETONES,URINE NEGATIVE (NEGATIVE); LEUKOCYTE ESTERASE,URINE MODERATE (NEGATIVE); NITRITE,URINE NEGATIVE (NEGATIVE); PROTEIN,URINE NEGATIVE (NEGATIVE); URINE SPECIFIC GRAVITY 1.004; UROBILINOGEN,URINE NEGATIVE mg/dL (<2.0)
[2017-03-17 11:57] LABS: ANION GAP 11 (5-19); BLOOD UREA NITROGEN 24 mg/dL (7-20); CALCIUM 9.1 mg/dL (8.4-10.2); CARBON DIOXIDE 35 mmol/L (22-30); CHLORIDE 99 mmol/L (98-107); CREATININE RESULT 2.42 mg/dL (0.52-1.25); GLUCOSE 92 mg/dL (75-110); MAGNESIUM 2.1 mg/dL (1.6-2.3); POTASSIUM 3.8 mmol/L (3.6-5.0); SODIUM 144.7 mmol/L (137-145)
== END ==
LOC: OD 09:44
PROVIDERS: ATTEND Internal Medicine Nephrology
DX: I12.9 Hypertensive chronic kidney disease with stage 1 through stage 4 chronic kidney disease, or unspecified chronic kidney disease (principal); N18.3 Chronic kidney disease, stage 3 (moderate); D64.9 Anemia, unspecified; M10.00 Idiopathic gout, unspecified site
CPT/HCPCS: 36415; 80048; 81001; 83735; 85027

== ENCOUNTER → 2017-05-23 | Outpatient (CLI) | payer MEDICARE, OTHER ==
--- NOTE | 2017-05-23 09:10 | RADIOLOGY REPORT (SQ) ---
EXAM DESCRIPTION: CT CHEST WITHOUTCT ABD/PELVIS NO ORAL OR IV; COMPLETED DATE/TIME: 05/23/2017 8:26 am REASON FOR STUDY: FOLLICULAR LYMPHOMA GRADE IIIA, LYMPH NODES OF MULTIPLE SITES C82.38 FOLLICULAR L YMPHOMA GRADE IIIA, LYMPH NODES MULT SITE COMPARISON: 11/15. TECHNIQUE: CT scan of the chest performed without intravenous contrast using helical scanning techni que. Images reviewed with lung, soft tissue and bone windows. Reconstructed coronal and sagittal MPR images reviewed. All images stored on PACS. All CT scanners at this facility use dose modulation, iterative reconstruction, and/or weight based d osing when appropriate to reduce radiation dose to as low as reasonably achievable (ALARA). [facility]: Dose Right [facility]: CareDose [facility]: Dose Right [facility]: [facility] 4D [facility]: [employer] RADIATION DOSE: CT Rad equipment meets quality standard of care and radiation dose reduction techniq ues were employed. CTDIvol: 15.8 - 23.8 mGy. DLP: 2167 mGy-cm. mGy. LIMITATIONS: None. FINDINGS: AXILLAE: No adenopathy. CHEST WALL: No masses. No subcutaneous air. LUNGS: Dependent atelectasis in lung bases. THYROID: Multinodular thyroid. HILAR AND MEDIASTINAL STRUCTURES: No mediastinal or hilar adenopathy. AORTA AND GREAT VESSELS: No aneurysm. HEART: Atherosclerotic coronary artery disease. Aortic valvular calcification. No pericardial effu feli. HARDWARE AND LIFELINES: None. BONES: No significant finding. OTHER: No other significant finding. IMPRESSION: Stable CT of chest. No evidence of residual or recurrent lymphoma. COMPARISON: None. TECHNIQUE: CT scan of the abdomen and pelvis performed without intravenous contrast ororal contrast using helical scanning technique with dynamic intravenous contrast injection. Images reviewed with l kareem, soft tissue and bone windows. Reconstructed coronal and sagittal MPR images reviewed. All imag es stored on PACS. All CT scanners at this facility use dose modulation, iterative reconstruction, and/or weight based d osing when appropriate to reduce radiation dose to as low as reasonably achievable (ALARA). [facility]: Dose Right [facility]: [employer] [facility]: Dose Right [facility]: Teradose 4D [facility]: [employer] RADIATION DOSE: CT Rad equipment meets quality standard of care and radiation dose reduction techniq ues were employed. CTDIvol: 15.8 - 23.8 mGy. DLP: 2167 mGy-cm.mGy. LIMITATIONS: None. FINDINGS: LIVER: No abnormality seen. SPLEEN: No abnormality seen. PANCREAS: No masses. No significant calcifications. No adjacent inflammation or peripancreatic flui d collections. Pancreatic duct not dilated. GALLBLADDER: Status post cholecystectomy. ADRENAL GLANDS: No significant masses or asymmetry. RIGHT KIDNEY AND URETER: Multiple parapelvic and simple renal cyst of the right kidney. No hydroneph rosis or dilatation of right ureter. LEFT KIDNEY AND URETER: Status post left nephrectomy. AORTA AND VESSELS: Atherosclerotic change of the abdominal aorta and iliac vessels. Infrarenal infer ior vena cava filter in place. RETROPERITONEUM: No retroperitoneal adenopathy, hemorrhage or masses. APPENDIX: Normal. LARGE AND SMALL BOWEL: Colonic diverticulosis. ABDOMINAL WALL: Fat containing umbilical hernia unchanged. PERITONEAL CAVITY: No free air. No free fluid. No peritoneal implants or masses. PELVIS: Urinary bladder: Thick-walled. Prostate and seminal vesicles: Prostate megaly. BONES: Multilevel lumbar spondylosis and degenerative disc disease. OTHER: No other significant finding. IMPRESSION: Stable CT of the abdomen and pelvis without contrast. No evidence of recurrent lymphoma or residual lymphoma. TECHNICAL DOCUMENTATION: JOB ID: [id number] Quality ID # [id number]: Final reports with documentation of one or more dose reduction techniques (e.g., Au tomated exposure control, adjustment of the mA and/or kV according to patient size, use of iterative reconstruction technique) 2010 [employer]- All Rights Reserved
--- NOTE | 2017-05-23 09:42 | RADIOLOGY REPORT (SQ) ---
EXAM DESCRIPTION: CT SOFT TISSUE NECK WITHOUT COMPLETED DATE/TIME: 05/23/2017 8:26 am REASON FOR STUDY: FOLLICULAR LYMPHOMA GRADE IIIA, LYMPH NODES OF MULTIPLE SITES C82.38 FOLLICULAR L YMPHOMA GRADE IIIA, LYMPH NODES MULT SITE COMPARISON: CT of the soft tissues of the neck 12/21/2013. TECHNIQUE: Noncontrast scanning from skull base through lung apices with review of bone, soft tissue and lung windows. Reconstructed coronal and sagittal MPR images reviewed. All images stored on PAC S. All CT scanners at this facility use dose modulation, iterative reconstruction, and/or weight based d osing when appropriate to reduce radiation dose to as low as reasonably achievable (ALARA). [facility]: Dose Right [facility]: CareDose [facility]: Dose Right [facility]: Teradose 4D [facility]: [employer] RADIATION DOSE: 2166.86mGy. LIMITATIONS: None. FINDINGS: SKULL BASE: Intact. MAJOR SALIVARY GLANDS: No solid or cystic masses. No inflammatory changes. LYMPHADENOPATHY: There is a stable left supraclavicular node noted adjacent to the left jugular vein measuring 1 cm slightly smaller in size (image number [id number] of series 2. MUCOSAL MASSES OR ASYMMETRY: No mucosal masses or asymmetry. LARYNX/CORDS: No abnormal findings. LUNG APICES: Clear. BONES: Intact. THYROID: Normal size. No masses. PARANASAL SINUSES: There is mucosal thickening noted in the floor of the right maxillary sinus. No a bnormality of the frontal or ethmoid sinuses. Mucosal thickening sphenoid sinus. OTHER: No other significant finding. IMPRESSION: 1. Chronic sinusitis. 2. Stable left supraclavicular node unchanged TECHNICAL DOCUMENTATION: JOB ID: [id number] [id number] Quality ID # [id number]: Final reports with documentation of one or more dose reduction techniques (e.g., Au tomated exposure control, adjustment of the mA and/or kV according to patient size, use of iterative reconstruction technique) 2010 [employer]- All Rights Reserved
== END ==
LOC: RAD 07:42
PROVIDERS: ATTEND Internal Medicine
DX: C82.38 Follicular lymphoma grade IIIa, lymph nodes of multiple sites (principal)
CPT/HCPCS: 70490; 71250; 74176

== ENCOUNTER → 2017-07-08 | Outpatient (CLI) | payer MEDICARE, OTHER ==
[2017-07-08 10:29] LABS: APPEARANCE,URINE CLOUDY; BILIRUBIN,URINE NEGATIVE (NEGATIVE); COLOR,URINE YELLOW; GLUCOSE, URINE NEGATIVE (NEGATIVE); KETONES,URINE NEGATIVE (NEGATIVE); LEUKOCYTE ESTERASE,URINE LARGE (NEGATIVE); NITRITE,URINE NEGATIVE (NEGATIVE); PROTEIN,URINE 100 mg/dL (NEGATIVE); URINE SPECIFIC GRAVITY 1.009; UROBILINOGEN,URINE NEGATIVE mg/dL (<2.0)
[2017-07-08 10:30] LABS: ABSOLUTE EOSINOPHILS # (AUTO) 0.1 10^3/uL (0.0-0.6); ABSOLUTE LYMPHOCYTES (AUTO) 1.5 10^3/uL (0.5-4.7); ABSOLUTE MONOCYTES (AUTO) 0.5 10^3/uL (0.1-1.4); ABSOLUTE NEUT (AUTO) 4.2 10^3/uL (1.7-8.2); BASOPHILS % (AUTO) 0.7 % (0-2); EOSINOPHILS % (AUTO) 0.9 % (0-6); HEMATOCRIT 42.1 % (37.9-51.0); HEMOGLOBIN 13.9 g/dL (13.5-17.0); LYMPHOCYTES % (AUTO) 23.2 % (13-45); MEAN CORPUSCULAR HEMOGLOBIN 29.5 pg (27.0-33.4); MEAN CORPUSCULAR HGB CONC 32.9 g/dL (32.0-36.0); MEAN CORPUSCULAR VOLUME 90 fl (80-97); MONOCYTES % (AUTO) 7.4 % (3-13); RED CELL DISTRIBUTION WIDTH 14.9 % (11.5-14.0); SEGMENTED NEUTROPHILS % (AUTO) 67.8 % (42-78); TOTAL CELLS COUNTED % (AUTO) 100 %; WHITE BLOOD COUNT 6.2 10^3/uL (4.0-10.5)
[2017-07-08 10:42] LABS: HEMATOCRIT 42.1 % (37.9-51.0); HEMOGLOBIN 13.9 g/dL (13.5-17.0); MEAN CORPUSCULAR HEMOGLOBIN 29.5 pg (27.0-33.4); MEAN CORPUSCULAR HGB CONC 32.9 g/dL (32.0-36.0); MEAN CORPUSCULAR VOLUME 90 fl (80-97); RED CELL DISTRIBUTION WIDTH 14.9 % (11.5-14.0); WHITE BLOOD COUNT 6.2 10^3/uL (4.0-10.5)
[2017-07-08 10:56] LABS: PLATELET COUNT 74 10^3/uL (150-450)
[2017-07-08 11:09] LABS: BLOOD UREA NITROGEN 39 mg/dL (7-20); CALCIUM 9.2 mg/dL (8.4-10.2); CARBON DIOXIDE 36 mmol/L (22-30); CHLORIDE 98 mmol/L (98-107); GLUCOSE 107 mg/dL (75-110); POTASSIUM 4.3 mmol/L (3.6-5.0); SODIUM 141.1 mmol/L (137-145)
[2017-07-08 11:10] LABS: ANION GAP 7 (5-19); PHOSPHORUS 3.9 mg/dL (2.5-4.5)
[2017-07-08 11:50] LABS: BLOOD UREA NITROGEN 39 mg/dL (7-20); CALCIUM 9.2 mg/dL (8.4-10.2); CHLORIDE 98 mmol/L (98-107); GLUCOSE 107 mg/dL (75-110); POTASSIUM 4.3 mmol/L (3.6-5.0)
[2017-07-08 11:51] LABS: ALANINE AMINOTRANSFERASE 24 U/L (21-72); ALBUMIN 3.7 g/dL (3.5-5.0); ALKALINE PHOSPHATASE 79 U/L (38-126); ANION GAP 7 (5-19); ASPARTATE AMINO TRANSFERASE 20 U/L (17-59); BILIRUBIN,DIRECT 0.5 mg/dL (0.0-0.4); BILIRUBIN,TOTAL 1.3 mg/dL (0.2-1.3); CARBON DIOXIDE 36 mmol/L (22-30); SODIUM 141.1 mmol/L (137-145)
[2017-07-08 11:52] LABS: TOTAL PROTEIN 6.2 g/dL (6.3-8.2)
[2017-07-08 12:19] LABS: CHOLESTEROL 124.67 mg/dL (0-200); DIRECT LDL 56 mg/dL (<100); TRIGLYCERIDES 126 mg/dL (<150); VLDL CHOLESTEROL 25.2 mg/dL (10-31)
== END ==
LOC: OD 09:01
PROVIDERS: ATTEND Internal Medicine Nephrology
DX: I12.9 Hypertensive chronic kidney disease with stage 1 through stage 4 chronic kidney disease, or unspecified chronic kidney disease (principal); N18.4 Chronic kidney disease, stage 4 (severe); E78.5 Hyperlipidemia, unspecified; I73.9 Peripheral vascular disease, unspecified; C85.90 Non-Hodgkin lymphoma, unspecified, unspecified site; R53.83 Other fatigue; D64.9 Anemia, unspecified; R30.0 Dysuria
CPT/HCPCS: 36415; 80048; 80053; 80061; 81001; 83970; 84100; 84443; 85025; 85027; 87086; 87088; 87186

== ENCOUNTER → 2017-08-16 | Outpatient (CLI) | payer MEDICARE, OTHER ==
[2017-08-16 11:09] LABS: HEMOGLOBIN 14.2 g/dL (13.5-17.0); MEAN CORPUSCULAR HEMOGLOBIN 29.9 pg (27.0-33.4); MEAN CORPUSCULAR HGB CONC 32.3 g/dL (32.0-36.0); MEAN CORPUSCULAR VOLUME 92 fl (80-97); RED BLOOD COUNT 4.77 10^6/uL (4.35-5.55); RED CELL DISTRIBUTION WIDTH 15.2 % (11.5-14.0); WHITE BLOOD COUNT 7.6 10^3/uL (4.0-10.5)
[2017-08-16 11:29] LABS: ALANINE AMINOTRANSFERASE 23 U/L (21-72); ALBUMIN 3.6 g/dL (3.5-5.0); ALKALINE PHOSPHATASE 75 U/L (38-126); ANION GAP 15 (5-19); ASPARTATE AMINO TRANSFERASE 16 U/L (17-59); BILIRUBIN,DIRECT 0.3 mg/dL (0.0-0.4); BILIRUBIN,TOTAL 1.3 mg/dL (0.2-1.3); BLOOD UREA NITROGEN 36 mg/dL (7-20); CARBON DIOXIDE 32 mmol/L (22-30); CHLORIDE 99 mmol/L (98-107); GLUCOSE 91 mg/dL (75-110); PHOSPHORUS 4.2 mg/dL (2.5-4.5); POTASSIUM 4.2 mmol/L (3.6-5.0); SODIUM 145.5 mmol/L (137-145); TOTAL PROTEIN 6.1 g/dL (6.3-8.2)
[2017-08-16 11:47] LABS: PLATELET COUNT 81 10^3/uL (150-450)
[2017-08-16 11:49] LABS: APPEARANCE,URINE TURBID; BILIRUBIN,URINE NEGATIVE (NEGATIVE); COLOR,URINE YELLOW; GLUCOSE, URINE NEGATIVE (NEGATIVE); KETONES,URINE NEGATIVE (NEGATIVE); LEUKOCYTE ESTERASE,URINE LARGE (NEGATIVE); NITRITE,URINE NEGATIVE (NEGATIVE); PROTEIN,URINE 100 mg/dL (NEGATIVE); UROBILINOGEN,URINE NEGATIVE mg/dL (<2.0)
== END ==
LOC: OD 10:17
PROVIDERS: ATTEND Internal Medicine Nephrology
DX: N18.3 Chronic kidney disease, stage 3 (moderate) (principal); N39.0 Urinary tract infection, site not specified; D64.9 Anemia, unspecified; I12.9 Hypertensive chronic kidney disease with stage 1 through stage 4 chronic kidney disease, or unspecified chronic kidney disease
CPT/HCPCS: 36415; 80053; 81001; 83970; 84100; 85027; 87086; 87088; 87186

== ENCOUNTER → 2017-09-19 | Outpatient (CLI) | payer MEDICARE, OTHER ==
[2017-09-19 11:10] LABS: HEMATOCRIT 42.3 % (37.9-51.0); HEMOGLOBIN 13.9 g/dL (13.5-17.0); MEAN CORPUSCULAR HEMOGLOBIN 30.2 pg (27.0-33.4); MEAN CORPUSCULAR HGB CONC 32.8 g/dL (32.0-36.0); MEAN CORPUSCULAR VOLUME 92 fl (80-97); RED BLOOD COUNT 4.59 10^6/uL (4.35-5.55); RED CELL DISTRIBUTION WIDTH 14.4 % (11.5-14.0); WHITE BLOOD COUNT 6.3 10^3/uL (4.0-10.5)
[2017-09-19 11:37] LABS: PLATELET COUNT 85 10^3/uL (150-450)
[2017-09-19 11:42] LABS: ANION GAP 9 (5-19); BLOOD UREA NITROGEN 38 mg/dL (7-20); CALCIUM 9.1 mg/dL (8.4-10.2); CARBON DIOXIDE 34 mmol/L (22-30); CHLORIDE 103 mmol/L (98-107); GLUCOSE 97 mg/dL (75-110); PHOSPHORUS 4.1 mg/dL (2.5-4.5); POTASSIUM 4.6 mmol/L (3.6-5.0); SODIUM 145.5 mmol/L (137-145)
== END ==
LOC: OD 10:27
PROVIDERS: ATTEND Internal Medicine Nephrology
DX: E11.22 Type 2 diabetes mellitus with diabetic chronic kidney disease (principal); I12.9 Hypertensive chronic kidney disease with stage 1 through stage 4 chronic kidney disease, or unspecified chronic kidney disease; N18.3 Chronic kidney disease, stage 3 (moderate); E87.5 Hyperkalemia
CPT/HCPCS: 36415; 80048; 83735; 83970; 84100; 85027

== ENCOUNTER → 2017-12-02 | Outpatient (CLI) | payer MEDICARE, OTHER ==
--- NOTE | 2017-12-02 08:40 | RADIOLOGY REPORT (SQ) ---
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 Images reviewed with lung, soft tissue and bone windows. Reconstructed coronal and sagittal MPR images reviewed. All images st ored on PACS. All CT scanners at this facility use dose modulation, iterative reconstruction, and/or weight based d osing when appropriate to reduce radiation dose to as low as reasonably achievable (ALARA). [facility]: Dose Right [facility]: CareDose [facility]: Dose Right [facility]: Teradose 4D [facility]: [employer] RADIATION DOSE: CT Rad equipment meets quality standard of care and radiation dose reduction techniq ues were employed. CTDIvol: 13.6 - 18.8 mGy. DLP: 1601 mGy-cm. mGy. LIMITATIONS: No technical limitations. FINDINGS: LUNGS AND PLEURA: There are some chronic changes in the right and left medial lung bases a s well as in the right lung along the major fissure. No consolidation or effusions. No suspicious p ulmonary nodules. HILAR AND MEDIASTINAL STRUCTURES: No identified masses or abnormal nodes. No obvious aneurysm. HEART AND VASCULAR STRUCTURES: No aneurysm. No pericardial effusion. UPPER ABDOMEN: No significant findings. Limited exam. THYROID AND OTHER SOFT TISSUES: No masses. No adenopathy. BONES: No significant finding. HARDWARE: None in the chest. OTHER: No other significant findings. IMPRESSION: Stable CT of the chest. No evidence of metastatic disease. TECHNICAL DOCUMENTATION: JOB ID: [id number] Quality ID # [id number]: Final reports with documentation of one or more dose reduction techniques (e.g., Au tomated exposure control, adjustment of the mA and/or kV according to patient size, use of iterative reconstruction technique) 2010 [email or web address]- All Rights Reserved Reading location - IP/workstation name: [email or web address]
--- NOTE | 2017-12-02 08:48 | RADIOLOGY REPORT (SQ) ---
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 Images reviewed with lung, soft tissue, and bone windows. Reconstructed coronal and sagittal MPR images revi ewed. All images stored on PACS. All CT scanners at this facility use dose modulation, iterative reconstruction, and/or weight based d osing when appropriate to reduce radiation dose to as low as reasonably achievable (ALARA). [facility]: Dose Right [facility]: CareDose [facility]: Dose Right [facility]: Teradose 4D [facility]: [employer] RADIATION DOSE: mGy. LIMITATIONS: None. FINDINGS: LOWER CHEST: No significant findings. No nodules or infiltrates. NON-CONTRASTED LIVER, SPLEEN, ADRENALS: Evaluation limited by lack of IV contrast. No identified sign ificant masses. PANCREAS: No masses. No peripancreatic inflammatory changes. GALLBLADDER: Surgically absent. RIGHT KIDNEY AND URETER: There are multiple stable right renal cysts. Some are hemorrhagic. No sig nificant calcifications. No hydronephrosis or hydroureter. LEFT KIDNEY AND URETER: The left kidney is absent. AORTA AND RETROPERITONEUM: No aneurysm. No retroperitoneal masses or adenopathy. IVC filter is in pl [place]. BOWEL AND PERITONEAL CAVITY: No obvious masses or inflammatory changes. No free fluid. APPENDIX: Normal in appearance. PELVIS, BLADDER, AND ABDOMINAL WALL:The bladder is decompressed by Chan catheter. No pelvic adenopa thy. BONES: No significant findings. OTHER: No other significant finding. IMPRESSION: Multiple right renal cysts some of which are hemorrhagic. These are stable in appearanc e no evidence of intraabdominal or intrapelvic metastatic disease. COMMENT: Quality ID # 436: Final reports with documentation of one or more dose reduction techniques (e.g., Automated exposure control, adjustment of the mA and/or kV according to patient size, use of iterative reconstruction technique) TECHNICAL DOCUMENTATION: JOB ID: [id number] [employer]- All Rights Reserved Reading location - IP/workstation name: [email or web address]
== END ==
LOC: RAD 07:27
PROVIDERS: ATTEND Internal Medicine
DX: C82.38 Follicular lymphoma grade IIIa, lymph nodes of multiple sites (principal)
CPT/HCPCS: 71250; 74176

== ENCOUNTER → 2018-01-17 | Outpatient (CLI) | payer MEDICARE, OTHER ==
[2018-01-17 12:32] LABS: HEMATOCRIT 43.6 % (37.9-51.0); HEMOGLOBIN 14.7 g/dL (13.5-17.0); MEAN CORPUSCULAR HEMOGLOBIN 29.9 pg (27.0-33.4); MEAN CORPUSCULAR HGB CONC 33.7 g/dL (32.0-36.0); MEAN CORPUSCULAR VOLUME 89 fl (80-97); RED BLOOD COUNT 4.91 10^6/uL (4.35-5.55); RED CELL DISTRIBUTION WIDTH 14.4 % (11.5-14.0)
[2018-01-17 12:36] LABS: ANION GAP 8 (5-19); BLOOD UREA NITROGEN 40 mg/dL (7-20); CALCIUM 9.4 mg/dL (8.4-10.2); CARBON DIOXIDE 31 mmol/L (22-30); CHLORIDE 102 mmol/L (98-107); GLUCOSE 96 mg/dL (75-110); POTASSIUM 4.7 mmol/L (3.6-5.0); SODIUM 140.6 mmol/L (137-145)
[2018-01-17 12:41] LABS: APPEARANCE,URINE TURBID; BILIRUBIN,URINE NEGATIVE (NEGATIVE); GLUCOSE, URINE NEGATIVE (NEGATIVE); KETONES,URINE NEGATIVE (NEGATIVE); LEUKOCYTE ESTERASE,URINE LARGE (NEGATIVE); NITRITE,URINE POSITIVE (NEGATIVE); PROTEIN,URINE 100 mg/dL (NEGATIVE); TRIPLE PHOSPHATE CRYSTAL,URINE FEW /HPF; UROBILINOGEN,URINE NEGATIVE mg/dL (<2.0)
[2018-01-17 12:42] LABS: COLOR,URINE LIGHT YELLOW
[2018-01-17 13:44] LABS: PLATELET COUNT 98 10^3/uL (150-450)
== END ==
LOC: OD 11:28
PROVIDERS: ATTEND Internal Medicine Nephrology
DX: I12.9 Hypertensive chronic kidney disease with stage 1 through stage 4 chronic kidney disease, or unspecified chronic kidney disease (principal); N18.3 Chronic kidney disease, stage 3 (moderate); D64.9 Anemia, unspecified
CPT/HCPCS: 36415; 80048; 81001; 85027

== ENCOUNTER → 2018-05-12 | Outpatient (CLI) | payer MEDICARE, OTHER ==
[2018-05-12 11:41] LABS: MEAN CORPUSCULAR HEMOGLOBIN 30.3 pg (27.0-33.4); MEAN CORPUSCULAR HGB CONC 33.4 g/dL (32.0-36.0); MEAN CORPUSCULAR VOLUME 91 fl (80-97); RED BLOOD COUNT 4.63 10^6/uL (4.35-5.55); RED CELL DISTRIBUTION WIDTH 14.5 % (11.5-14.0)
[2018-05-12 11:56] LABS: ANION GAP 7 (5-19); BLOOD UREA NITROGEN 41 mg/dL (7-20); CARBON DIOXIDE 35 mmol/L (22-30); CHLORIDE 99 mmol/L (98-107); GLUCOSE 94 mg/dL (75-110); PHOSPHORUS 3.9 mg/dL (2.5-4.5); POTASSIUM 4.6 mmol/L (3.6-5.0)
[2018-05-12 12:12] LABS: PLATELET COUNT 75 10^3/uL (150-450)
== END ==
LOC: OD 11:11
PROVIDERS: ATTEND Internal Medicine Nephrology
DX: I12.9 Hypertensive chronic kidney disease with stage 1 through stage 4 chronic kidney disease, or unspecified chronic kidney disease (principal); N18.4 Chronic kidney disease, stage 4 (severe)
CPT/HCPCS: 36415; 80048; 83735; 83970; 84100; 85027

== ENCOUNTER 2018-07-20 19:09 | Emergency (ER) | payer MEDICARE, OTHER ==
--- NOTE | 2018-07-20 22:29 | ER Document Report ---
ED Medical Screen (RME) - General Chief Complaint: Problem with Urinary Catheter Stated Complaint: CATHERTER PROBLEMS Time Seen by Provider: 07/20/18 20:52 Primary Care Provider: Lalitha LONGORIA MD [Primary Care Provider] - Follow up as needed TRAVEL OUTSIDE OF THE [place] IN LAST 30 DAYS: No - HPI Notes: 07/20/18 22:27 Patient is an 83-year-old male with a history of chronic kidney disease and catheter placement who presents with concern of possible catheter being blocked/plugged. Pt's believes that it may have unplugged at this time as she does see some urine in the tube, but they are not sure. Pt states that people need to use a guide-wire to place the catheter due to anatomic issues with his penis/urethral. No other concerns or complaints. Denies ABEL, fever, neck pain, URI, CP, SOB, Abd pain, or rash. I have treated and performed a rapid initial assessment of this patient. A comprehensive ED assessment and evaluation of the patient, analysis of test r esults and completion of medical decision making process will be conducted by additional ED providers. PHYSICAL EXAMINATION: GENERAL: Well-appearing, well-nourished and in no acute distress. A&Ox4. Answers questions appropriately. LUNGS: Breath sounds clear to auscultation bilaterally and equal. No wheezes rales or rhonchi. HEART: Regular rate and rhythm without murmurs, rubs, gallops. : There is urine present in the catheter tubing and bag. - Related Data Allergies/Adverse Reactions: sesame seed Allergy (Intermediate, Verified 01/04/17 10:50) Hives Past Medical History - Past Medical History Cardiac Medical History: Reports: Hx DVT, Hx Hypercholesterolemia, Hx Hype rtension - MEDICATIONS, Hx Peripheral Vascular Disease Denies: Hx Coronary Artery Disease, Hx Heart Attack, Hx Heart Murmur Pulmonary Medical History: Reports: Hx COPD, Hx Pneumonia Denies: Hx Asthma, Hx Respiratory Failure, Hx Sleep Apnea, Hx Tuberculosis Neurological Medical History: Denies: Hx Cerebrovascular Accident, Hx Seizures Renal/ Medical History: Reports: Hx Benign Prostatic Hyperplasia, Hx Renal Insufficiency - stage 3. 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 Denies: Hx Open Heart Surgery, Hx Pacemaker - Immunizations Hx Diphtheria, Pertussis, Tetanus Vaccination: No Physical Exam - Vital signs Vitals: Temp Pulse Resp BP Pulse Ox 97.1 F 83 18 125/73 95 07/20/18 19:26 07/20/18 19:26 07/20/18 19:26 07/20/18 19:26 07/20/18 19:26 Course - Vital Signs Vital signs: Temp Pulse Resp BP Pulse Ox 97.1 F 83 18 125/73 95 07/20/18 19:26 07/20/18 19:26 07/20/18 19:26 07/20/18 19:26 07/20/18 19:26 Doctor's Discharge - Discharge Referrals: Lalitha LONGORIA MD [Primary Care Provider] - Follow up as needed
--- NOTE | 2018-07-21 00:03 | ER Document Report ---
HPI - HPI Time Seen by Provider: 07/20/18 20:52 Pain Level: Denies Notes: Patient is an 83-year-old male with a history of chronic kidney disease and catheter placement who presents with concern of possible catheter being blocked/plugged. Pt's believes that it may have unplugged at this time as she does see some urine in the tube, but they are not sure. Pt states that people need to use a guide-wire to place the catheter due to anatomic issues with his penis/urethral. No other concerns or complaints. Denies ABEL, fever, neck pain, URI, CP, SOB, Abd pain, or rash. - ROS Systems Reviewed and Negative: Yes All other systems reviewed and negative - URINARY Urinary: REPORTS: Dysuria - catheter clogged - REPRODUCTIVE Reproductive: DENIES: : Past Medical History - Social History Smoking Status: Never Smoker Chew tobacco use (# tins/day): Yes Frequency of alcohol use: None Drug Abuse: None Family History: Reviewed & Not Pertinent Patient has suicidal ideation: No Patient has homicidal ideation: No - Past Medical History Cardiac Medical History: Reports: Hx DVT, Hx Hypercholesterolemia, Hx Hypertension - MEDICATIONS, Hx Peripheral Vascular Disease Denies: Hx Coronary Artery Disease, Hx Heart Attack, Hx Heart Murmur Pulmonary Medical History: Reports: Hx COPD, Hx Pneumonia Denies: Hx Asthma, Hx Respiratory Failure, Hx Sleep Apnea, Hx Tuberculosis Neurological Medical History: Denies: Hx Cerebrovascular Accident, Hx Seizures Renal/ Medical History: Reports: Hx Benign Prostatic Hyperplasia, Hx Renal Insufficiency - stage 3. 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 Denies: Hx Hiatal Hernia, Hx Pancreatitis, Hx Ulcer Musculoskeletal Medical History: Reports Hx Arthritis - All over, Reports Hx Gout Past Surgical History: Reports: Hx Cholecystectomy, Hx Kidney (Renal Surgery) - L NEPHRECTOMY, Hx Orthopedic Surgery - L KNEE, Hx Vascular Surgery - [place] Filter, Other - Transurethral resection of the prostate - 11/2016. Denies: Hx Open Heart Surgery, Hx Pacemaker - Immunizations Hx Diphtheria, Pertussis, Tetanus Vaccination: No Hx Pneumococcal Vaccination: 01/02/14 Vertical Provider Document - CONSTITUTIONAL Agree With Documented VS: Yes Notes: PHYSICAL EXAMINATION: GENERAL: Well-appearing, well-nourished and in no acute distress. LUNGS: Breath sounds clear to auscultation bilaterally and equal. No wheezes rales or rhonchi. HEART: Regular rate and rhythm ABDOMEN: Soft, nontender, nondistended abdomen. No guarding, no rebound. Normal bowel sounds present. No CVA tenderness bilaterally. : There is urine present in the catheter tubing and bag. NEUROLOGICAL: Normal speech, normal gait. PSYCH: Normal mood, normal affect. - INFECTION CONTROL TRAVEL OUTSIDE OF THE [place] IN LAST 30 DAYS: No Course - Re-evaluation Re-evalutation: 07/21/18 00:04 Patient is an afebrile, well-hydrated, 83-year-old male who presents with Chan catheter being plugged. Vitals are acceptable. PE is otherwise unremarkable. Patient is nontoxic-appearing and is tolerating p.o. without ability. Chan catheter was irrigated and the problem was fixed. No need for replacement at this time. Patient has an appointment with urology early next week. Return to the ED with any other worsening/concerning symptoms as reviewed. Patient and in agreement. Low suspicion for any acute abdomen, sepsis, meningitis, severe dehydration, or other systemic emergent condition at this time. Patient and aware that condition can change from initial presentation and they need to monitor symptoms closely and seek medical attention with any acute changes. - Vital Signs Vital signs: Temp Pulse Resp BP Pulse Ox 97.1 F 83 18 125/73 95 07/20/18 19:26 07/20/18 19:26 07/20/18 19:26 07/20/18 19:26 07/20/18 19:26 Discharge - Discharge Clinical Impression: Chan catheter problem Qualifiers: Encounter type: initial encounter Qualified Code(s): T83.9XXA - Unspecified complication of genitourinary prosthetic device, implant and graft, initial encounter Condition: Stable Disposition: HOME, SELF-CARE Additional Instructions: Healthy diet and fluid intake as directed by your criminal justice faculty Proper hygenic technique Keep the skin clean Tylenol as needed Chan catheter care as directed by urology F/u with your PCM/Urology in 3-5 days for a recheck Return to the ED with any worsening symptoms and/or development of fever, headache, chest pain, palpitations, syncope, shortness of breath, trouble breathing, abdominal pain, n/v/d, blood in stool/urine, loss of control of bowel/bladder, urinary retention, or other worsening symptoms that are concerning to you. Referrals: Lalitha LONGORIA MD [Primary Care Provider] - Follow up as needed
[2018-07-21 02:32] VITALS: BP 140/87
== END 2018-07-20 23:30 | disposition home or self-care (01) ==
LOC: ER 19:09
DX: T83.9XXA Unspecified complication of genitourinary prosthetic device, implant and graft, initial encounter (principal); I10 Essential (primary) hypertension
CPT/HCPCS: 99283

== ENCOUNTER 2018-09-28 08:39 | Inpatient (IN) | payer MEDICARE, OTHER ==
[2018-09-28 09:40] LABS: ALANINE AMINOTRANSFERASE 17 U/L (21-72); ALBUMIN 2.6 g/dL (3.5-5.0); ALKALINE PHOSPHATASE 42 U/L (38-126); ANION GAP 5 (5-19); ASPARTATE AMINO TRANSFERASE 18 U/L (17-59); BILIRUBIN,DIRECT 0.4 mg/dL (0.0-0.4); BILIRUBIN,TOTAL 1.3 mg/dL (0.2-1.3); BLOOD UREA NITROGEN 40 mg/dL (7-20); CALCIUM 7.5 mg/dL (8.4-10.2); CARBON DIOXIDE 31 mmol/L (22-30); CHLORIDE 101 mmol/L (98-107); CREATINE KINASE 31 U/L (55-170); GLUCOSE 107 mg/dL (75-110); POTASSIUM 3.5 mmol/L (3.6-5.0); SODIUM 136.6 mmol/L (137-145); TOTAL PROTEIN 4.7 g/dL (6.3-8.2)
[2018-09-28 09:52] LABS: CREATINE KINASE MB 0.53 ng/mL (<4.55)
[2018-09-28 09:53] LABS: TROPONIN I < 0.012 ng/mL
[2018-09-28 10:10] LABS: ABSOLUTE LYMPHOCYTES (AUTO) 0.8 10^3/uL (0.5-4.7); ABSOLUTE MONOCYTES (AUTO) 0.9 10^3/uL (0.1-1.4); ABSOLUTE NEUT (AUTO) 6.2 10^3/uL (1.7-8.2); BASOPHILS % (AUTO) 0.4 % (0-2); EOSINOPHILS % (AUTO) 0.1 % (0-6); HEMATOCRIT 36.4 % (37.9-51.0); LYMPHOCYTES % (AUTO) 9.9 % (13-45); MEAN CORPUSCULAR HEMOGLOBIN 29.3 pg (27.0-33.4); MEAN CORPUSCULAR HGB CONC 33.1 g/dL (32.0-36.0); MEAN CORPUSCULAR VOLUME 89 fl (80-97); RED BLOOD COUNT 4.11 10^6/uL (4.35-5.55); RED CELL DISTRIBUTION WIDTH 14.8 % (11.5-14.0); SEGMENTED NEUTROPHILS % (AUTO) 78.6 % (42-78); TOTAL CELLS COUNTED % (AUTO) 100 %; WHITE BLOOD COUNT 7.9 10^3/uL (4.0-10.5)
--- NOTE | 2018-09-28 10:20 | ER Document Report ---
ED Dizziness/Weakness - General Chief Complaint: General Weakness Stated Complaint: GENERAL WEAKNESS Time Seen by Provider: 09/28/18 10:14 Primary Care Provider: Lalitha LONGORIA MD [Primary Care Provider] - Follow up as needed Notes: Patient is here for profound weakness, having fallen and could not get up, and now does not have the strength to stand, even with this family is assistance. Patient fell without hurting himself. Has no pain in his back or legs. His legs just gave out on him. Patient says he can move all 4 extremities equally between the 2 sides, but very limited leg movement. Has never had a stroke. When he fell Tuesday, he did not injure himself and has no complaints of pain, etc. Patient denies any nausea or vomiting or diarrhea. Denies any chest pain. Denies any cough or chest congestion. Denies any UTI symptoms. Patient does have an indwelling Chan catheter secondary to prostate cancer. Has not had UTIs. Only has one kidney, the other one atrophied long ago. TRAVEL OUTSIDE OF THE [place] IN LAST 30 DAYS: No - Related Data Allergies/Adverse Reactions: sesame seed Allergy (Intermediate, Verified 01/04/17 10:50) Hives Past Medical History - Social History Smoking Status: Former Smoker - Stopped 20 years ago. 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 Denies: Hx Open Heart Surgery, Hx Pacemaker - Immunizations Hx Diphtheria, Pertussis, Tetanus Vaccination: No Hx Pneumococcal Vaccination: 01/02/14 Review of Systems - Review of Systems Notes: REVIEW OF SYSTEMS: CONSTITUTIONAL : Denies fever. Generalized weakness, see HPI. Vital signs are all normal. EENT: Denies eye, ear, nose or mouth or throat pain or other symptoms. CARDIOVASCULAR: Denies chest pain. RESPIRATORY: Denies cough, chest congestion, or shortness of breath. GASTROINTESTINAL: Denies abdominal pain or nausea, vomiting, or diarrhea. GENITOURINARY: Denies difficulty or painful urinating, urinary frequency, blood in urine. Indwelling Chan catheter. MUSCULOSKELETAL: Denies back or neck pain. Denies joint pain or swelling. SKIN: Denies rash or skin lesions. NEUROLOGICAL: Denies LOC or altered mental status. Denies headache. Denies sensory loss or motor deficits. ALL OTHER SYSTEMS REVIEWED AND NEGATIVE. Physical Exam - Vital signs Vitals: Resp BP Pulse Ox 23 H 83/56 L 92 09/28/18 08:49 09/28/18 08:49 09/28/18 08:49 Interpretation: Hypotensive - Initial blood pressure 83/56. Notes: PHYSICAL EXAMINATION: GENERAL: Well-appearing, in no acute distress. Blood pressure slightly low. HEAD: Atraumatic, normocephalic. EYES: Pupils equal round and reactive to light, extraocular movements intact. ENT: oropharynx clear without exudates. Moist mucous membranes. NECK: Normal range of motion, supple. LUNGS: Breath sounds clear and equal bilaterally. HEART: Regular rate and rhythm without murmurs. ABDOMEN: Soft, nontender. No guarding or rebound. No masses. BACK: No tenderness throughout entire back. EXTREMITIES: Normal range of motion without pain. No pain or tenderness of the lower back or leg regions at all. NEUROLOGICAL: Normal speech, seems to be hard of hearing. Unable to stand or walk. Normal sensory, motor, and reflex exams. Awake, alert, and oriented x3. Patient has an indwelling Chan catheter which he has had for a long time. PSYCH: Normal mood, normal affect. SKIN: Warm, dry, no rashes. Course - Vital Signs Vital signs: Temp Pulse Resp BP Pulse Ox 99.1 F 20 114/67 98 09/28/18 10:49 09/28/18 11:38 09/28/18 11:38 09/28/18 11:38 - Laboratory Result Diagrams: 09/28/18 10:01 09/28/18 09:15 Laboratory results interpreted by me: 09/28/18 09/28/18 09/28/18 09:15 09:15 10:01 RBC 4.11 L Hgb 12.0 L Hct 36.4 L RDW 14.8 H Plt Count 63 L Seg Neutrophils % 78.6 H Lymphocytes % 9.9 L Sodium 136.6 L Potassium 3.5 L Carbon Dioxide 31 H BUN 40 H Creatinine 2.69 H Est GFR ( Amer) 28 L Est GFR (Non-Af Amer) 23 L Calcium 7.5 L ALT 17 L Creatine Kinase 31 L NT-Pro-B Natriuret Pep 936 H Total Protein 4.7 L Albumin 2.6 L Urine Protein Urine Blood Ur Leukocyte Esterase 09/28/18 10:23 RBC Hgb Hct RDW Plt Count Seg Neutrophils % Lymphocytes % Sodium Potassium Carbon Dioxide BUN Creatinine Est GFR ( Amer) Est GFR (Non-Af Amer) Calcium ALT Creatine Kinase NT-Pro-B Natriuret Pep Total Protein Albumin Urine Protein 100 H Urine Blood MODERATE H Ur Leukocyte Esterase LARGE H - Diagnostic Test Radiology reviewed: Image reviewed, Reports reviewed - CT scan shows no acute processes and no stroke. Chronic atrophy. Radiology results interpreted by me: 09/28/18 12:41 Chest x-ray without acute findings. No evidence of infection. - EKG Interpretation by Ca EKG shows normal: Sinus rhythm Rate: Normal Rhythm: NSR Discharge - Discharge Clinical Impression: UTI (urinary tract infection), Weakness Condition: Stable Disposition: ADMITTED INPATIENT Admitting Provider: Lydia Clifton Unit Admitted: Telemetry Referrals: Lalitha LONGORIA MD [Primary Care Provider] - Follow up as needed
[2018-09-28 10:30] LABS: PLATELET COUNT 63 10^3/uL (150-450)
[2018-09-28] MEDS ORDERED: NORMAL SALINE 1000 ML 1,000 ML IV ONE (10:33)
[2018-09-28 10:59] LABS: APPEARANCE,URINE CLOUDY; BILIRUBIN,URINE NEGATIVE (NEGATIVE); COLOR,URINE YELLOW; GLUCOSE, URINE NEGATIVE (NEGATIVE); KETONES,URINE NEGATIVE (NEGATIVE); LEUKOCYTE ESTERASE,URINE LARGE (NEGATIVE); NITRITE,URINE NEGATIVE (NEGATIVE); PROTEIN,URINE 100 mg/dL (NEGATIVE); URINE SPECIFIC GRAVITY 1.012; UROBILINOGEN,URINE NEGATIVE mg/dL (<2.0)
--- NOTE | 2018-09-28 11:36 | RADIOLOGY REPORT (SQ) ---
EXAM DESCRIPTION: CHEST SINGLE VIEW COMPLETED DATE/TIME: 09/28/2018 11:01 am REASON FOR STUDY: Generalized weakness COMPARISON: 04/26/2014 EXAM PARAMETERS: NUMBER OF VIEWS: One view. TECHNIQUE: Single frontal radiographic view of the chest acquired. RADIATION DOSE: NA LIMITATIONS: None. FINDINGS: LUNGS AND PLEURA: Pulmonary vascular congestion. Cannot exclude mild pulmonary edema. MEDIASTINUM AND HILAR STRUCTURES: No masses. Contour normal. HEART AND VASCULAR STRUCTURES: Cardiomegaly. BONES: No acute findings. HARDWARE: None in the chest. OTHER: No other significant finding. IMPRESSION: Cardiomegaly. Cannot exclude mild pulmonary edema. TECHNICAL DOCUMENTATION: JOB ID: [id number] [employer]- All Rights Reserved Reading location - IP/workstation name: [email or web address]
--- NOTE | 2018-09-28 11:45 | RADIOLOGY REPORT (SQ) ---
EXAM DESCRIPTION: CT HEAD WITHOUT COMPLETED DATE/TIME: 09/28/2018 11:24 am REASON FOR STUDY: Weakness and unable to stand. COMPARISON: 04/30/2014 TECHNIQUE: Axial images acquired through the brain without intravenous contrast. Images reviewed wi th bone, brain and subdural windows. Additional sagittal and coronal reconstructions were generated. Images stored on PACS. All CT scanners at this facility use dose modulation, iterative reconstruction, and/or weight based d osing when appropriate to reduce radiation dose to as low as reasonably achievable (ALARA). [facility]: Dose Right [facility]: CareDose [facility]: Dose Right [facility]: Teradose 4D [facility]: Smart [employer] RADIATION DOSE: CT Rad equipment meets quality standard of care and radiation dose reduction techniq ues were employed. CTDIvol: 53.2 mGy. DLP: 1070 mGy-cm. mGy. LIMITATIONS: None. FINDINGS: VENTRICLES: Normal size and contour. CEREBRUM: No masses. No hemorrhage. No midline shift. No evidence for acute infarction. Few scatte red areas of low density in the white matter most likely chronic small vessel ischemic changes. CEREBELLUM: No masses. No hemorrhage. No alteration of density. No evidence for acute infarction. EXTRAAXIAL SPACES: No fluid collections. No masses. ORBITS AND GLOBE: No intra- or extraconal masses. Normal contour of globe without masses. CALVARIUM: No fracture. PARANASAL SINUSES: No fluid or mucosal thickening. SOFT TISSUES: No mass or hematoma. OTHER: No other significant finding. IMPRESSION: No acute intracranial pathology. Small vessel white matter disease. EVIDENCE OF ACUTE STROKE: NO. COMMENT: Quality ID # [id number]: Final reports with documentation of one or more dose reduction techniques (e.g., Automated exposure control, adjustment of the mA and/or kV according to patient size, use of iterative reconstruction technique) TECHNICAL DOCUMENTATION: JOB ID: [id number] [employer]- All Rights Reserved Reading location - IP/workstation name: [email or web address]
[2018-09-28] MEDS ORDERED: VANCOMYCIN HCL INJ 1000 MG VIAL IV ONE (12:44)
[2018-09-28] MEDS: CEFEPIME 2 GM/D5W RTU 2 GM/50 ML RTUPB IV SCH (13:10)
[2018-09-28] MEDS ORDERED: ACETAMINOPHEN 325 MG TABLET PO PRN (13:54)
[2018-09-28] MEDS ORDERED: ONDANSETRON 4 MG TAB.RAPDIS PO PRN (13:54)
[2018-09-28] MEDS ORDERED: HYDRALAZINE HCL INJ/PF 20 MG/1 ML SDV IV PRN (14:02)
--- NOTE | 2018-09-28 14:22 | PDOC H&P ---
History of Present Illness Admission Date/PCP: 09/28/18 13:23 Lalitha LONGORIA MD Patient complains of: WEAKNESS History of Present Illness: PEG WHITNEY is a 83 year old male with a PMH of HTN, prostate cancer, left renal atrophy (status post nephrectomy), dementia, GERD. [facility] with a [facility]-day history of frequent falls and progressively worsening weakness. [id number] at the bedside, she states that patient fell early this morning in the bathroom, she was unable to get him off the floor, which prompted her to call EMS. The patient denies LOC or head trauma. [id number] states that the patient has "not been acting like himself "this past week. Upon arrival to the emergency department, patient was hypotensive (BP 83/56) and tachypneic (RR 23). HR 70. SPO2 92% on room air. Low-grade fever 99F. CXR shows cardiomegaly, no other significant cardiopulmonary pathology. Head CT WNL. Laboratory studies indicative of mild hyponatremia (NA 136), hypokalemia (K 3.5), CHRISTINE (creatinine 2.69), mildly elevated proBNP (936). Urinalysis indicative of UTI: Cloudy appearance, large leuk esterase, WBCs>182. Patient was treated with 1L IVF, IV vancomycin and cefepime. Upon assessment, patient is resting comfortably in bed. He endorses moderate fatigue and weakness, no other complaints. He is alert and oriented, hard of h earing despite wearing hearing aids. He is able to answer most questions appropriately. Lungs are clear to auscultation, diminished in the bilateral lower lobes. Pulses are palpable in the upper extremities, +1 in the lower extremities. +4 pitting edema is noted in the bilateral lower extremities, family states this is chronic. Indwelling Chan catheter present, draining cloudy yellow urine with a moderate amount of sediment. Plan to admit to the hospitalist service for complicated UTI. Past Medical History Cardiac Medical History: Reports: Congestive Heart Failure, DVT, Hyperlipidema, Hypertension - MEDICATIONS, Peripheral Vascular Disease Denies: Myocardial Infarction Pulmonary Medical History: Reports: Chronic Obstructive Pulmonary Disease (COPD), Pneumonia Denies: Asthma, Tuberculosis Neurological Medical History: Denies: Seizures Malignancy Medical History: Reports: Lymphoma - Non-hodgkin's Denies: Breast Cancer, Cervical Cancer, Ovarian Cancer GI Medical History: Reports: Gastroesophageal Reflux Disease Denies: Hiatal Hernia Musculoskeltal Medical History: Reports: Arthritis - All over, Gout Hematology: Denies: Anemia, Hemophilia, Sickle Cell Disease Past Surgical History Past Surgical History: Reports: Cholecystectomy, Orthopedic Surgery - L KNEE, Vascular Surgery - [place] Filter, Other - Transurethral resection of the prostate - 11/2016 Denies: Pacemaker Social History Information Source: Patient Lives with: Family Smoking Status: Former Smoker - Stopped 20 years ago. Number of Years Smokin Frequency of Alcohol Use: None Hx Recreational Drug Use: No Hx Prescription Drug Abuse: No Past Social History Note: Per [id number], patient uses dipping tobacco for 20+ years - Advance Directive Resuscitation Status: Full Code Family History Family History: Reviewed & Not Pertinent Parental Family History Reviewed: Yes Children Family History Reviewed: Yes Sibling(s) Family History Reviewed.: Yes Medication/Allergy Allergies/Adverse Reactions: sesame seed Allergy (Intermediate, Verified 01/04/17 10:50) Hives Review of Systems ROS unobtainable: Other Constitutional: PRESENT: fatigue Eyes: ABSENT: visual disturbances Ears: PRESENT: other - Hard of hearing.. ABSENT: hearing changes Nose, Mouth, and Throat: ABSENT: headache(s) Cardiovascular: PRESENT: edema - Bilateral lower extremities Respiratory: ABSENT: dyspnea Gastrointestinal: ABSENT: abdominal pain, dysphagia, nausea, vomiting Genitourinary: PRESENT: other - Chronic indwelling Chan catheter. ABSENT: difficulty urinating, dysuria Musculoskeletal: ABSENT: back pain Integumentary: ABSENT: diaphoresis Neurological: PRESENT: abnormal gait - Unable to ambulate, frequent falls Psychiatric: ABSENT: anxiety, depression Endocrine: ABSENT: cold intolerance, heat intolerance Hematologic/Lymphatic: PRESENT: easy bruising - Bilateral upper extremities Physical Exam Vital Signs: Temp Pulse Resp BP Pulse Ox 98.6 F 20 114/67 98 09/28/18 12:36 09/28/18 11:38 09/28/18 11:38 09/28/18 11:38 Intake & Output 09/27/18 09/28/18 09/29/18 06:59 06:59 06:59 Weight 108.7 kg General appearance: PRESENT: obese Eye exam: PRESENT: conjunctiva pink, PERRLA Mouth exam: PRESENT: moist, tongue midline Neck exam: PRESENT: full ROM Respiratory exam: PRESENT: clear to auscultation jason, decreased breath sounds - Bilateral lower lobes, likely secondary to body habitus, symmetrical, unlabored Cardiovascular exam: PRESENT: RRR Pulses: PRESENT: normal radial pulses, +1 pedal pulses bilateral GI/Abdominal exam: PRESENT: normal bowel sounds, soft. ABSENT: distended, tenderness Rectal exam: PRESENT: deferred Gentrourinary exam: PRESENT: indwelling catheter Extremities exam: PRESENT: pedal edema - +4 pitting edema below the knees Musculoskeletal exam: ABSENT: ambulatory, full ROM, normal inspection - +4 pitting edema in bilateral lower extremities Neurological exam: PRESENT: alert, awake, oriented to person, oriented to place, oriented to time, oriented to situation, other - Hard of hearing even with hearing aids Psychiatric exam: PRESENT: appropriate affect Skin exam: PRESENT: dry, intact, other - Multiple areas of bruising, and various stages of healing, on the bilateral upper extremities Results Laboratory Results: 09/28/18 10:01 09/28/18 09:15 09/28/18 09/28/18 09/28/18 09:15 09:15 10:01 WBC Cancelled 7.9 RBC Cancelled 4.11 L Hgb Cancelled 12.0 L Hct Cancelled 36.4 L MCV Cancelled 89 MCH Cancelled 29.3 MCHC Cancelled 33.1 RDW Cancelled 14.8 H Plt Count Cancelled 63 L Seg Neutrophils % Cancelled 78.6 H Lymphocytes % Cancelled 9.9 L Monocytes % Cancelled 11.0 Eosinophils % Cancelled 0.1 Basophils % Cancelled 0.4 Absolute Neutrophils Cancelled 6.2 Absolute Lymphocytes Cancelled 0.8 Absolute Monocytes Cancelled 0.9 Absolute Eosinophils Cancelled 0.0 Absolute Basophils Cancelled 0.0 Sodium 136.6 L Potassium 3.5 L Chloride 101 Carbon Dioxide 31 H Anion Gap 5 BUN 40 H Creatinine 2.69 H Est GFR ( Amer) 28 L Est GFR (Non-Af Amer) 23 L Glucose 107 Calcium 7.5 L Total Bilirubin 1.3 AST 18 ALT 17 L Alkaline Phosphatase 42 Total Protein 4.7 L Albumin 2.6 L Urine Color Urine Appearance Urine pH Ur Specific [place] Urine Protein Urine Glucose (UA) Urine Ketones Urine Blood Urine Nitrite Ur Leukocyte Esterase Urine WBC (Auto) Urine RBC (Auto) 09/28/18 10:23 WBC RBC Hgb Hct MCV MCH MCHC RDW Plt Count Seg Neutrophils % Lymphocytes % Monocytes % Eosinophils % Basophils % Absolute Neutrophils Absolute Lymphocytes Absolute Monocytes Absolute Eosinophils Absolute Basophils Sodium Potassium Chloride Carbon Dioxide Anion Gap BUN Creatinine Est GFR ( Amer) Est GFR (Non-Af Amer) Glucose Calcium Total Bilirubin AST ALT Alkaline Phosphatase Total Protein Albumin Urine Color YELLOW Urine Appearance CLOUDY Urine pH 8.0 Ur Specific [place] 1.012 Urine Protein 100 H Urine Glucose (UA) NEGATIVE Urine Ketones NEGATIVE Urine Blood MODERATE H Urine Nitrite NEGATIVE Ur Leukocyte Esterase LARGE H Urine WBC (Auto) >182 Urine RBC (Auto) 26 09/28/18 09/28/18 09/28/18 09:15 09:15 09:15 Creatine Kinase 31 L CK-MB (CK-2) 0.53 Troponin I < 0.012 NT-Pro-B Natriuret Pep 936 H Impressions: Chest X-Ray 09/28/18 10:25 IMPRESSION: Cardiomegaly. Cannot exclude mild pulmonary edema. Head CT 09/28/18 10:28 IMPRESSION: No acute intracranial pathology. Small vessel white matter disease. EVIDENCE OF ACUTE STROKE: NO. Status: Imported from PACS Assessment and Plan - Diagnosis (1) UTI (urinary tract infection) Qualifiers: Urinary tract infection type: catheter-associated UTI Indwelling urinary catheter type: indwelling urethral catheter Encounter type: initial encounter Qualified Code(s): T83.511A - Infection and inflammatory reaction due to indwelling urethral catheter, initial encounter; N39.0 - Urinary tract infection, site not specified Is this a current diagnosis for this admission?: Yes Plan: Complicated urinary tract infection with indwelling Chan catheter [facility] UTI - various causative agents (E. coli, Klebsiella, Pseudomonas etc.) Urinalysis indicative of UTI: Cloudy, large leuk esterase, WBC>182 Urine cultures pending Initiate broad-spectrum antibiotic coverage with vancomycin and cefepime Change antibiotic coverage once cultures and sensitivities are resulted (2) HTN (hypertension) Qualifiers: Hypertension type: essential hypertension Qualified Code(s): I10 - Essential (primary) hypertension Is this a current diagnosis for this admission?: Yes Plan: [facility] HTN CContinue home dose anti-HTN PRN hydralazine for SBP > 170 (3) GERD (gastroesophageal reflux disease) Is this a current diagnosis for this admission?: Yes Plan: [facility] GERD Continue home dose PPI (4) Weakness Is this a current diagnosis for this admission?: Yes Plan: Secondary to infection PT/OT consult Anticipate SNF rehab following hospitalization Consulting discharge planning, appreciate their assistance (5) History of prostate cancer Is this a current diagnosis for this admission?: Yes Plan: S/p partial prostatectomy History of urinary retention Chronic indwelling Chan catheter
[2018-09-28] MEDS: ENOXAPARIN SODIUM INJ 30 MG/0.3 ML DISP.SYRIN SUBCUT SCH (16:49)
[2018-09-28] MEDS ORDERED: IBRUTINIB 420 MG PO SCH (19:00)
[2018-09-28] MEDS ORDERED: POTASSI CL 20 MEQ/50 ML RIDER 20 MEQ/50 ML RTUPB IV ONE (20:16)
[2018-09-28] MEDS ORDERED: MAGNESIUM SULFATE/D5W 1 GM/100 ML RTUPB IV ONE ×2 (20:16→23:21)
[2018-09-28] MEDS: FUROSEMIDE 40 MG TABLET PO SCH (20:17)
[2018-09-28] MEDS: TAMSULOSIN HCL 0.4 MG CAP.SR.24H PO SCH (20:17)
[2018-09-28] MEDS: METOPROLOL TARTRATE 100 MG TABLET PO SCH (20:17)
[2018-09-28] MEDS ORDERED: FAMOTIDINE 20 MG TABLET PO SCH (22:00)
--- NOTE | 2018-09-28 23:04 | EKG REPORT ---
SEVERITY:- BORDERLINE ECG - SINUS RHYTHM BORDERLINE LEFT AXIS DEVIATION BORDERLINE T ABNORMALITIES, INFERIOR LEADS CONSIDER INFERIOR AL AGE INDETERMINATE : Confirmed by: Jeff Burnett 28-Sep-2018 23:03:52
[2018-09-28] MEDS: ATORVASTATIN CALCIUM 40 MG TABLET PO SCH (23:24)
[2018-09-28] MEDS: CLONIDINE HCL 0.2 MG TABLET PO SCH (23:24)
[2018-09-29] MEDS ORDERED: CEFEPIME 2 GM/D5W RTU 2 GM/50 ML RTUPB IV ONE (00:37)
[2018-09-29] MEDS: CEFEPIME 2 GM/D5W RTU 2 GM/50 ML RTUPB IV SCH (00:47)
[2018-09-29] MEDS: CLONIDINE HCL 0.2 MG TABLET PO SCH ×3 (05:13→22:15)
[2018-09-29] MEDS: PANTOPRAZOLE SODIUM 20 MG TABLET.DR PO SCH (05:13)
[2018-09-29 06:36] LABS: ABSOLUTE LYMPHOCYTES (AUTO) 0.9 10^3/uL (0.5-4.7); ABSOLUTE MONOCYTES (AUTO) 0.9 10^3/uL (0.1-1.4); ABSOLUTE NEUT (AUTO) 4.7 10^3/uL (1.7-8.2); BASOPHILS % (AUTO) 0.4 % (0-2); EOSINOPHILS % (AUTO) 0.2 % (0-6); HEMATOCRIT 37.1 % (37.9-51.0); HEMOGLOBIN 12.3 g/dL (13.5-17.0); LYMPHOCYTES % (AUTO) 14.3 % (13-45); MEAN CORPUSCULAR HEMOGLOBIN 29.5 pg (27.0-33.4); MEAN CORPUSCULAR HGB CONC 33.1 g/dL (32.0-36.0); MEAN CORPUSCULAR VOLUME 89 fl (80-97); MONOCYTES % (AUTO) 13.1 % (3-13); RED BLOOD COUNT 4.16 10^6/uL (4.35-5.55); RED CELL DISTRIBUTION WIDTH 14.6 % (11.5-14.0); TOTAL CELLS COUNTED % (AUTO) 100 %; WHITE BLOOD COUNT 6.5 10^3/uL (4.0-10.5)
[2018-09-29 06:56] LABS: ALANINE AMINOTRANSFERASE 19 U/L (21-72); ALBUMIN 2.8 g/dL (3.5-5.0); ALKALINE PHOSPHATASE 53 U/L (38-126); ANION GAP 8 (5-19); ASPARTATE AMINO TRANSFERASE 22 U/L (17-59); BILIRUBIN,DIRECT 0.5 mg/dL (0.0-0.4); BLOOD UREA NITROGEN 41 mg/dL (7-20); CALCIUM 8.4 mg/dL (8.4-10.2); CARBON DIOXIDE 30 mmol/L (22-30); CHLORIDE 99 mmol/L (98-107); GLUCOSE 95 mg/dL (75-110); PHOSPHORUS 3.3 mg/dL (2.5-4.5); POTASSIUM 3.6 mmol/L (3.6-5.0); SODIUM 136.9 mmol/L (137-145); TOTAL PROTEIN 5.2 g/dL (6.3-8.2)
[2018-09-29 07:20] LABS: PLATELET COUNT 58 10^3/uL (150-450)
[2018-09-29] MEDS ORDERED: AMLODIPINE BESYLATE 2.5 MG TABLET PO SCH (08:00)
[2018-09-29] MEDS: FEBUXOSTAT 40 MG TABLET PO SCH (08:24)
[2018-09-29] MEDS: ENOXAPARIN SODIUM INJ 30 MG/0.3 ML DISP.SYRIN SUBCUT SCH (09:21)
[2018-09-29] MEDS: METOPROLOL TARTRATE 100 MG TABLET PO SCH ×2 (09:24→22:15)
[2018-09-29] MEDS: FUROSEMIDE 40 MG TABLET PO SCH (09:25)
[2018-09-29] MEDS ORDERED: CEFEPIME HCL 2 GM in DEXTROSE 5%-WATER 50 ML IV SCH (10:00)
--- NOTE | 2018-09-29 12:51 | PDOC CONSULTATION ---
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 [id number] apparently stated that the patient fell early yesterday morning in the bathroom, and she was unable to get him off the floor, which prompted her to call EMS. The patient denies LOC or head trauma. [id number] stated that the patient had not been acting like himself for the last one week. No history of any chest pain palpitations or focal deficits or seizures. Evaluations in the ER revealed the patient was hypotensive and mildly febrile. He was found to have leukocytosis and evidences of severe UTI. The Chan catheter was last exchanged approximately 2 weeks ago according to patient. The Chan catheter was not exchanged in the ER. Apparently the outside tubing was then changed because for reasons which are unclear. Patient was begun on antibiotics and admitted. Currently patient feels some better. He denies any history of severe orthostasis. Labs and medications were reviewed with the patient. Past Medical History Cardiac Medical History: Reports: DVT, Hyperlipidemia, Hypertension-primary, Peripheral Vascular Disease Denies: Myocardial Infarction Pulmonary Medical History: Reports: Chronic Obstructive Pulmonary Disease (COPD), Pneumonia Denies: Asthma, Tuberculosis Neurological Medical History: Denies: Seizures Renal/ Medical History: Reports: Benign Prostatic Hyperplasia, Chronic Kidney Disease Stage IV Malignancy Medical History: Reports: Lymphoma - Non-hodgkin's Denies: Breast Cancer, Cervical Cancer, Ovarian Cancer GI Medical History: Reports: Gastroesophageal Reflux Disease Denies: Hiatal Hernia Musculoskeltal Medical History: Reports: Arthritis - All over, Gout Denies: Rheumatoid Arthritis Psychiatric Medical History: Denies: Depression Hematology Medical History: Reports Lymphoma Past Surgical History Past Surgical History: Reports: Cholecystectomy, Orthopedic Surgery - L KNEE, Vascular Surgery - Huber Filter, Other - Transurethral resection of the prostate - 11/2016 Denies: Pacemaker Social History Lives with: Family Smoking Status: Former Smoker Number of Years Smokin Frequency of Alcohol Use: None Hx Recreational Drug Use: No Hx Prescription Drug Abuse: No - Advance Directive Resuscitation Status: Full Code Family History Parental Family History Reviewed: Yes - Denies ESRD. Children Family History Reviewed: No Sibling(s) Family History Reviewed.: No Medication/Allergy Home Medications: Amlodipine Besylate [Norvasc 2.5 mg Tablet] 2.5 mg PO QAM 09/28/18 Atorvastatin Calcium [Lipitor 40 mg Tablet] 40 mg PO QHS 09/28/18 Clonidine HCl [Catapres 0.2 mg Tablet] 0.2 mg PO Q8 09/28/18 Docusate Sodium [Colace 100 mg Capsule] 100 mg PO BIDP PRN 09/28/18 Febuxostat [Uloric 40 mg Tablet] 40 mg PO QAM 09/28/18 Finasteride [Proscar 5 mg Tablet] 5 mg PO QAM 09/28/18 Furosemide [Lasix 40 mg Tablet] 40 mg PO Q12 09/28/18 Ibrutinib [Imbruvica] 420 mg PO QPM 09/28/18 Metoprolol Tartrate [Lopressor 100 mg Tablet] 100 mg PO Q12 09/28/18 Niacin [Niaspan ER 500 mg Tablet.sa] 500 mg PO BID@0800,1200 09/28/18 Omeprazole 20 mg PO QAM 09/28/18 Tamsulosin HCl [Flomax 0.4 mg Cap.sr] 0.4 mg PO QPM 09/28/18 Allergies/Adverse Reactions: sesame seed Allergy (Intermediate, Verified 01/04/17 10:50) Hives Review of Systems Constitutional: PRESENT: anorexia, fatigue, headache(s), night sweats, weakness. ABSENT: chills, fever(s) Eyes: ABSENT: visual disturbances Nose, Mouth, and Throat: ABSENT: mouth pain, sore throat Cardiovascular: PRESENT: dyspnea on exertion. ABSENT: chest pain, edema, orthropnea, palpitations Respiratory: ABSENT: cough, dyspnea, hemoptysis Gastrointestinal: ABSENT: abdominal pain, bloating, coffee ground emesis, diarrhea, dysphagia, heartburn, hematemesis, hematochezia Genitourinary: ABSENT: difficulty urinating, dysuria, hematuria Integumentary: ABSENT: lesions, pruritus, rash Neurological: PRESENT: dizziness, frequent falls, memory loss, paresthesias. ABSENT: abnormal gait, abnormal movements, confusion, convulsions, focal weakness Endocrine: ABSENT: heat intolerance, polyuria Physical Exam Vital Signs: Temp Pulse Resp BP Pulse Ox 98.4 F 84 18 113/66 94 09/29/18 08:00 09/29/18 08:00 09/29/18 08:00 09/29/18 08:00 09/29/18 08:00 Intake & Output 09/28/18 09/29/18 09/30/18 06:59 06:59 06:59 Intake Total 1716 Output Total 1800 Balance -84 Weight 108.6 kg General appearance: PRESENT: disheveled Eye exam: PRESENT: EOMI, PERRLA Mouth exam: PRESENT: moist, neck supple Neck exam: ABSENT: lymphadenopathy, meningismus, tenderness, thyromegaly, tracheal deviation Respiratory exam: PRESENT: clear to auscultation jason, decreased breath sounds. ABSENT: crackles Cardiovascular exam: PRESENT: +S1, +S2, systolic murmur GI/Abdominal exam: PRESENT: normal bowel sounds, soft. ABSENT: organomegaly, tenderness Extremities exam: ABSENT: pedal edema Neurological exam: PRESENT: alert, awake, oriented to person, oriented to place, oriented to time Psychiatric exam: PRESENT: appropriate affect Skin exam: ABSENT: cyanosis, intact, mottled, rash Results Laboratory Results: 09/29/18 05:36 09/29/18 05:36 09/29/18 09/29/18 09/29/18 05:36 05:36 05:36 WBC 6.5 RBC 4.16 L Hgb 12.3 L Hct 37.1 L MCV 89 MCH 29.5 MCHC 33.1 RDW 14.6 H Plt Count 58 L Seg Neutrophils % 72.0 Lymphocytes % 14.3 Monocytes % 13.1 H Eosinophils % 0.2 Basophils % 0.4 Absolute Neutrophils 4.7 Absolute Lymphocytes 0.9 Absolute Monocytes 0.9 Absolute Eosinophils 0.0 Absolute Basophils 0.0 Sodium 136.9 L Potassium 3.6 Chloride 99 Carbon Dioxide 30 Anion Gap 8 BUN 41 H Creatinine 2.77 H Est GFR ( Amer) 27 L Est GFR (Non-Af Amer) 22 L Glucose 95 Calcium 8.4 Phosphorus 3.3 Magnesium 2.4 H Total Bilirubin 1.0 AST 22 ALT 19 L Alkaline Phosphatase 53 Total Protein 5.2 L Albumin 2.8 L TSH 1.50 09/28/18 09/28/18 09/28/18 09:15 09:15 09:15 Creatine Kinase 31 L CK-MB (CK-2) 0.53 Troponin I < 0.012 NT-Pro-B Natriuret Pep 936 H 09/29/18 05:36 Creatine Kinase CK-MB (CK-2) Troponin I NT-Pro-B Natriuret Pep 959 H Impressions: Chest X-Ray 09/28/18 10:25 IMPRESSION: Cardiomegaly. Cannot exclude mild pulmonary edema. Head CT 09/28/18 10:28 IMPRESSION: No acute intracranial pathology. Small vessel white matter disease. EVIDENCE OF ACUTE STROKE: NO. Assessment & Plan - Diagnosis (1) UTI (urinary tract infection) Qualifiers: Urinary tract infection type: catheter-associated UTI Indwelling urinary catheter type: indwelling urethral catheter Encounter type: initial encounter Qualified Code(s): T83.511A - Infection and inflammatory reaction due to indwelling urethral catheter, initial encounter; N39.0 - Urinary tract infection, site not specified Is this a current diagnosis for this admission?: Yes Plan: Patient is got a complicated UTI in the face of indwelling Chan catheter. Patient's urine cultures already growing gram-negative rods. Patient on IV cefepime which I would dose to 2 g daily. Discussed with hospitalist about exchanging Chan catheter. (2) Obstructive uropathy Plan: With permanent indwelling Chan catheter that he exchanges every 30 days. Last time exchange was about 2 weeks ago. (3) Solitary right kidney Plan: Status post left nephrectomy for reasons which are unclear. (4) CKD (chronic kidney disease), stage IV Plan: His baseline creatinine of 2.5-2 3. Patient is currently at his baseline. (5) HTN (hypertension) Qualifiers: Hypertension type: essential hypertension Qualified Code(s): I10 - Essential (primary) hypertension Is this a current diagnosis for this admission?: Yes Plan: Patient was hypotensive on presentation suggestive of possible sepsis or prerenal dehydration. Closely monitor his antihypertensives. I am disconti nuing his amlodipine. (6) History of prostate cancer Is this a current diagnosis for this admission?: Yes Plan: Presently stable. (7) Non Hodgkin's lymphoma Plan: Was treated with the chemo I believe in 2013. (8) Physical deconditioning Plan: Patient looks very deconditioned. He would obviously needs in hospital and most likely post discharge care home rehab.
[2018-09-29] MEDS: TAMSULOSIN HCL 0.4 MG CAP.SR.24H PO SCH (17:51)
--- NOTE | 2018-09-29 21:57 | PDOC PROGRESS REPORT ---
Subjective Progress Note for:: 09/29/18 Subjective:: PEG WHITNEY is a 83 year old male with a PMH of HTN, prostate cancer, left renal atrophy (status post nephrectomy), dementia, GERD. The patient was seen this morning on rounds. He is resting in bed eating lunch with family at the bedside. The patient states he "feels ok" today, but denies any specific complaints. Laboratory studies reveal slightly worsening renal function. All other markers seem to be improving. The patient is resting in bed on room air. He states he does not "feel great" today but is unable to verbalize any specific complaints. LCTA. Abdomen is S/NT/ND. Patient denies suprapubic, lower back or flank pain. Discussed patient's case with [facility] Urologist, Dr. Leong, who feels that the patient's chronic indwelling catheter does not need to be changed. It was replaced 9 days ago on 09/20/2018. He recommended continuing with broad spectrum IV antibiotics and initiating targeted antibiotic therapy once urine cultures have resulted. At this time, the patient will remain at [facility] for treatment of a complicated UTI. Reason For Visit: COMPLICATED UTI Physical Exam Vital Signs: Temp Pulse Resp BP Pulse Ox 98.4 F 84 18 113/66 94 09/29/18 08:00 09/29/18 08:00 09/29/18 08:00 09/29/18 08:00 09/29/18 08:00 Intake & Output 09/28/18 09/29/18 09/30/18 06:59 06:59 06:59 Intake Total 1716 Output Total 1800 Balance -84 Weight 108.6 kg General appearance: PRESENT: no acute distress, morbidly obese Head exam: PRESENT: atraumatic, normocephalic Eye exam: PRESENT: conjunctiva pink, EOMI, PERRLA. ABSENT: scleral icterus Ear exam: PRESENT: normal external ear exam Mouth exam: PRESENT: moist, tongue midline Neck exam: ABSENT: carotid bruit, JVD, lymphadenopathy, thyromegaly Respiratory exam: PRESENT: clear to auscultation jason, symmetrical, unlabored. ABSENT: rales, rhonchi, wheezes Cardiovascular exam: PRESENT: RRR. ABSENT: diastolic murmur, rubs, systolic murmur Pulses: PRESENT: normal radial pulses, +1 pedal pulses bilateral Vascular exam: PRESENT: normal capillary refill GI/Abdominal exam: PRESENT: normal bowel sounds, soft. ABSENT: distended, guarding, mass, organolmegaly, rebound, tenderness Rectal exam: PRESENT: deferred Extremities exam: PRESENT: full ROM, pedal edema - +4 pitting edema. ABSENT: calf tenderness, clubbing Musculoskeletal exam: PRESENT: full ROM. ABSENT: deformity, normal inspection Neurological exam: PRESENT: alert, awake, oriented to person, oriented to place, oriented to time, oriented to situation Psychiatric exam: PRESENT: appropriate affect, normal mood Skin exam: PRESENT: dry, intact, warm. ABSENT: cyanosis, rash Results Laboratory Results: 09/29/18 05:36 09/29/18 05:36 09/29/18 09/29/18 09/29/18 05:36 05:36 05:36 WBC 6.5 RBC 4.16 L Hgb 12.3 L Hct 37.1 L MCV 89 MCH 29.5 MCHC 33.1 RDW 14.6 H Plt Count 58 L Seg Neutrophils % 72.0 Lymphocytes % 14.3 Monocytes % 13.1 H Eosinophils % 0.2 Basophils % 0.4 Absolute Neutrophils 4.7 Absolute Lymphocytes 0.9 Absolute Monocytes 0.9 Absolute Eosinophils 0.0 Absolute Basophils 0.0 Sodium 136.9 L Potassium 3.6 Chloride 99 Carbon Dioxide 30 Anion Gap 8 BUN 41 H Creatinine 2.77 H Est GFR ( Amer) 27 L Est GFR (Non-Af Amer) 22 L Glucose 95 Calcium 8.4 Phosphorus 3.3 Magnesium 2.4 H Total Bilirubin 1.0 AST 22 ALT 19 L Alkaline Phosphatase 53 Total Protein 5.2 L Albumin 2.8 L TSH 1.50 09/28/18 09/28/18 09/28/18 09:15 09:15 09:15 Creatine Kinase 31 L CK-MB (CK-2) 0.53 Troponin I < 0.012 NT-Pro-B Natriuret Pep 936 H 09/29/18 05:36 Creatine Kinase CK-MB (CK-2) Troponin I NT-Pro-B Natriuret Pep 959 H Impressions: Chest X-Ray 09/28/18 10:25 IMPRESSION: Cardiomegaly. Cannot exclude mild pulmonary edema. Head CT 09/28/18 10:28 IMPRESSION: No acute intracranial pathology. Small vessel white matter disease. EVIDENCE OF ACUTE STROKE: NO. Status: Imported from PACS Assessment and Plan - Diagnosis (1) UTI (urinary tract infection) Qualifiers: Urinary tract infection type: catheter-associated UTI Indwelling urinary catheter type: indwelling urethral catheter Encounter type: initial encounter Qualified Code(s): T83.511A - Infection and inflammatory reaction due to indwelling urethral catheter, initial encounter; N39.0 - Urinary tract infection, site not specified Is this a current diagnosis for this admission?: Yes Plan: Complicated urinary tract infection with indwelling Chan catheter [facility] UTI - various causative agents (E. coli, Klebsiella, Pseudomonas etc.) Urinalysis indicative of UTI: Cloudy, large leuk esterase, WBC>182 Urine cultures pending Initiate broad-spectrum antibiotic coverage with vancomycin and cefepime Change antibiotic coverage once cultures and sensitivities are resulted Per [facility] Urology (Dr. Leong) - no need to change out urinary catheter at this time. It was changed only 9 days ago. (2) HTN (hypertension) Qualifiers: Hypertension type: essential hypertension Qualified Code(s): I10 - Essential (primary) hypertension Is this a current diagnosis for this admission?: Yes Plan: H HTN Continue home dose anti-HTN PRN hydralazine for SBP > 170 (3) GERD (gastroesophageal reflux disease) Is this a current diagnosis for this admission?: Yes Plan: H GERD Continue home dose PPI (4) Weakness Is this a current diagnosis for this admission?: Yes Plan: Secondary to infection PT/OT consult Anticipate SNF rehab following hospitalization Consulting discharge planning, appreciate their assistance (5) History of prostate cancer Is this a current diagnosis for this admission?: Yes Plan: S/p partial prostatectomy History of urinary retention Chronic indwelling Chan catheter Urologist is Dr. Cuellar at [facility] - Time Time Spent with patient: 15-24 minutes Medications reviewed and adjusted accordingly: Yes Anticipated discharge: SNF Within: when bed available - Inpatient Certification Based on my medical assessment, after consideration of the patient's comorbidities, presenting symptoms, or acuity I expect that the services needed warrant INPATIENT care.: Yes I certify that my determination is in accordance with my understanding of Medicare's requirements for reasonable and necessary INPATIENT services [42 CFR 412.3e].: Yes Medical Necessity: Need for IV Antibiotics, Risk of Complication if Not Cared For in Hospital
[2018-09-29] MEDS: ATORVASTATIN CALCIUM 40 MG TABLET PO SCH (22:15)
[2018-09-30] MEDS: CLONIDINE HCL 0.2 MG TABLET PO SCH ×3 (06:08→21:10)
[2018-09-30] MEDS: PANTOPRAZOLE SODIUM 20 MG TABLET.DR PO SCH (06:08)
[2018-09-30 06:49] LABS: ABSOLUTE EOSINOPHILS # (AUTO) 0.1 10^3/uL (0.0-0.6); ABSOLUTE LYMPHOCYTES (AUTO) 1.1 10^3/uL (0.5-4.7); ABSOLUTE MONOCYTES (AUTO) 0.8 10^3/uL (0.1-1.4); ABSOLUTE NEUT (AUTO) 4.4 10^3/uL (1.7-8.2); BASOPHILS % (AUTO) 0.7 % (0-2); EOSINOPHILS % (AUTO) 1.4 % (0-6); HEMATOCRIT 37.3 % (37.9-51.0); HEMOGLOBIN 12.6 g/dL (13.5-17.0); LYMPHOCYTES % (AUTO) 17.2 % (13-45); MEAN CORPUSCULAR HGB CONC 33.7 g/dL (32.0-36.0); MEAN CORPUSCULAR VOLUME 89 fl (80-97); MONOCYTES % (AUTO) 12.4 % (3-13); RED BLOOD COUNT 4.19 10^6/uL (4.35-5.55); RED CELL DISTRIBUTION WIDTH 14.2 % (11.5-14.0); SEGMENTED NEUTROPHILS % (AUTO) 68.3 % (42-78); TOTAL CELLS COUNTED % (AUTO) 100 %; WHITE BLOOD COUNT 6.5 10^3/uL (4.0-10.5)
[2018-09-30 07:03] LABS: ALANINE AMINOTRANSFERASE 23 U/L (21-72); ALBUMIN 2.8 g/dL (3.5-5.0); ALKALINE PHOSPHATASE 54 U/L (38-126); ANION GAP 7 (5-19); ASPARTATE AMINO TRANSFERASE 21 U/L (17-59); BILIRUBIN,DIRECT 0.4 mg/dL (0.0-0.4); BILIRUBIN,TOTAL 0.9 mg/dL (0.2-1.3); BLOOD UREA NITROGEN 43 mg/dL (7-20); CALCIUM 8.4 mg/dL (8.4-10.2); CARBON DIOXIDE 32 mmol/L (22-30); CHLORIDE 100 mmol/L (98-107); GLUCOSE 88 mg/dL (75-110); PHOSPHORUS 3.9 mg/dL (2.5-4.5); POTASSIUM 3.6 mmol/L (3.6-5.0); SODIUM 139.2 mmol/L (137-145); TOTAL PROTEIN 5.1 g/dL (6.3-8.2)
[2018-09-30 07:12] LABS: PLATELET COUNT 66 10^3/uL (150-450)
[2018-09-30] MEDS: ENOXAPARIN SODIUM INJ 30 MG/0.3 ML DISP.SYRIN SUBCUT SCH (09:39)
[2018-09-30] MEDS: FEBUXOSTAT 40 MG TABLET PO SCH (09:40)
[2018-09-30] MEDS: CEFEPIME HCL 2 GM in DEXTROSE 5%-WATER 50 ML IV SCH (09:40)
[2018-09-30] MEDS: METOPROLOL TARTRATE 100 MG TABLET PO SCH ×2 (09:40→21:10)
[2018-09-30] MEDS: FUROSEMIDE 40 MG TABLET PO SCH (09:40)
[2018-09-30] MEDS: TAMSULOSIN HCL 0.4 MG CAP.SR.24H PO SCH (17:05)
--- NOTE | 2018-09-30 20:56 | PDOC PROGRESS REPORT ---
Subjective Progress Note for:: 09/30/18 Subjective:: PEG WHITNEY is a 83 year old male with a PMH of HTN, prostate cancer, left renal atrophy (status post nephrectomy), dementia, GERD. The patient was seen this morning on rounds. He is resting in bed eating lunch with family at the bedside. The patient states he "feels ok" today, but denies any specific complaints. Laboratory studies show no change in renal function. All other markers seem to be improving. LCTA. Abdomen is S/NT/ND. Patient denies suprapubic, lower back or flank pain. Steven clearly states (multiple times) that he does not want to return home following hospitalization, he needs acute rehab. Family is in agreement. Notified discharge planning that patient will require placement following hospitalization. Appreciate their assistance. Reason For Visit: COMPLICATED UTI Physical Exam Vital Signs: Temp Pulse Resp BP Pulse Ox 98.0 F 81 18 156/81 H 97 09/30/18 17:02 09/30/18 17:02 09/30/18 17:02 09/30/18 17:02 09/30/18 17:02 Intake & Output 09/29/18 09/30/18 10/01/18 06:59 06:59 06:59 Intake Total 1716 610 648 Output Total 1800 1940 950 Balance -84 -1330 -302 Weight 108.6 kg 129.3 kg General appearance: PRESENT: no acute distress, morbidly obese Head exam: PRESENT: atraumatic, normocephalic Eye exam: PRESENT: conjunctiva pink, EOMI, PERRLA. ABSENT: scleral icterus Ear exam: PRESENT: normal external ear exam Mouth exam: PRESENT: moist, tongue midline Neck exam: ABSENT: carotid bruit, JVD, lymphadenopathy, thyromegaly Respiratory exam: PRESENT: clear to auscultation jason, symmetrical, unlabored. ABSENT: rales, rhonchi, wheezes Cardiovascular exam: PRESENT: RRR. ABSENT: diastolic murmur, rubs, systolic murmur Pulses: PRESENT: normal radial pulses, +1 pedal pulses bilateral Vascular exam: PRESENT: normal capillary refill GI/Abdominal exam: PRESENT: normal bowel sounds, soft. ABSENT: distended, guarding, mass, organolmegaly, rebound, tenderness Rectal exam: PRESENT: deferred Gentrourinary exam: PRESENT: indwelling catheter Extremities exam: PRESENT: full ROM, pedal edema - +4 pitting edema. ABSENT: calf tenderness, clubbing Musculoskeletal exam: ABSENT: ambulatory, normal inspection Neurological exam: PRESENT: alert, awake, oriented to person, oriented to place, oriented to time, oriented to situation Psychiatric exam: PRESENT: appropriate affect, normal mood Skin exam: PRESENT: dry, intact, warm. ABSENT: cyanosis, rash Results Laboratory Results: 09/30/18 06:08 09/30/18 06:08 09/30/18 09/30/18 06:08 06:08 WBC 6.5 RBC 4.19 L Hgb 12.6 L Hct 37.3 L MCV 89 MCH 30.0 MCHC 33.7 RDW 14.2 H Plt Count 66 L Seg Neutrophils % 68.3 Lymphocytes % 17.2 Monocytes % 12.4 Eosinophils % 1.4 Basophils % 0.7 Absolute Neutrophils 4.4 Absolute Lymphocytes 1.1 Absolute Monocytes 0.8 Absolute Eosinophils 0.1 Absolute Basophils 0.0 Sodium 139.2 Potassium 3.6 Chloride 100 Carbon Dioxide 32 H Anion Gap 7 BUN 43 H Creatinine 2.77 H Est GFR ( Amer) 27 L Est GFR (Non-Af Amer) 22 L Glucose 88 Calcium 8.4 Phosphorus 3.9 Magnesium 2.4 H Total Bilirubin 0.9 AST 21 ALT 23 Alkaline Phosphatase 54 Total Protein 5.1 L Albumin 2.8 L 09/28/18 09/28/18 09/28/18 09:15 09:15 09:15 Creatine Kinase 31 L CK-MB (CK-2) 0.53 Troponin I < 0.012 NT-Pro-B Natriuret Pep 936 H 09/29/18 05:36 Creatine Kinase CK-MB (CK-2) Troponin I NT-Pro-B Natriuret Pep 959 H Impressions: Chest X-Ray 09/28/18 10:25 IMPRESSION: Cardiomegaly. Cannot exclude mild pulmonary edema. Head CT 09/28/18 10:28 IMPRESSION: No acute intracranial pathology. Small vessel white matter disease. EVIDENCE OF ACUTE STROKE: NO. Status: Imported from PACS Assessment and Plan - Diagnosis (1) UTI (urinary tract infection) Qualifiers: Urinary tract infection type: catheter-associated UTI Indwelling urinary catheter type: indwelling urethral catheter Encounter type: initial encounter Qualified Code(s): T83.511A - Infection and inflammatory reaction due to indwelling urethral catheter, initial encounter; N39.0 - Urinary tract infection, site not specified Is this a current diagnosis for this admission?: Yes Plan: Complicated urinary tract infection with indwelling Chan catheter PMH UTI - various causative agents (E. coli, Klebsiella, Pseudomonas etc.) Urinalysis indicative of UTI: Cloudy, large leuk esterase, WBC>182 Urine cultures growing proteus Blood cultures pending - preliminary results GNR Initiate broad-spectrum antibiotic coverage with vancomycin and cefepime Change antibiotic coverage once cultures and sensitivities are resulted Per [facility] Urology (Dr. Leong) - no need to change out urinary catheter at this time. It was changed only 9 days ago. (2) HTN (hypertension) Qualifiers: Hypertension type: essential hypertension Qualified Code(s): I10 - Essential (primary) hypertension Is this a current diagnosis for this admission?: Yes Plan: PMH HTN Continue home dose anti-HTN PRN hydralazine for SBP > 170 (3) GERD (gastroesophageal reflux disease) Is this a current diagnosis for this admission?: Yes Plan: PMH GERD Continue home dose PPI (4) Weakness Is this a current diagnosis for this admission?: Yes Plan: Secondary to infection PT/OT consult Anticipate SNF rehab following hospitalization Consulting discharge planning, appreciate their assistance (5) History of prostate cancer Is this a current diagnosis for this admission?: Yes Plan: S/p partial prostatectomy History of urinary retention Chronic indwelling Chan catheter Urologist is Dr. Cuellar at [facility] - Time Time Spent with patient: 15-24 minutes Medications reviewed and adjusted accordingly: Yes Anticipated discharge: SNF Within: Other - when medically stable - Inpatient Certification Based on my medical assessment, after consideration of the patient's comorbidities, presenting symptoms, or acuity I expect that the services needed warrant INPATIENT care.: Yes I certify that my determination is in accordance with my understanding of Medicare's requirements for reasonable and necessary INPATIENT services [42 CFR 412.3e].: Yes Medical Necessity: Need for IV Antibiotics
--- NOTE | 2018-09-30 20:56 | Progress Note Acknowledgement ---
Progress Note Acknowledgement Progess Note Acknowledgement: I, the undersigned member of the medical staff with appropriate privileges and with supervisory authority over [dom pennington ], a [facility] practice allied health professional, acknowledge that I have reviewed the progress notes entered on this patient, and in my professional judgment believe that the assessment made and/or any care evidenced was appropriate
[2018-09-30] MEDS: ATORVASTATIN CALCIUM 40 MG TABLET PO SCH (21:10)
[2018-10-01] MEDS: CLONIDINE HCL 0.2 MG TABLET PO SCH ×3 (06:00→21:22)
[2018-10-01] MEDS: PANTOPRAZOLE SODIUM 20 MG TABLET.DR PO SCH (06:01)
[2018-10-01 08:38] LABS: HEMATOCRIT 37.6 % (37.9-51.0); HEMOGLOBIN 12.3 g/dL (13.5-17.0); MEAN CORPUSCULAR HEMOGLOBIN 29.3 pg (27.0-33.4); MEAN CORPUSCULAR HGB CONC 32.9 g/dL (32.0-36.0); MEAN CORPUSCULAR VOLUME 89 fl (80-97); RED BLOOD COUNT 4.22 10^6/uL (4.35-5.55); RED CELL DISTRIBUTION WIDTH 14.5 % (11.5-14.0); WHITE BLOOD COUNT 6.6 10^3/uL (4.0-10.5)
[2018-10-01 08:43] LABS: ALANINE AMINOTRANSFERASE 21 U/L (21-72); ALBUMIN 2.9 g/dL (3.5-5.0); ALKALINE PHOSPHATASE 58 U/L (38-126); ANION GAP 7 (5-19); ASPARTATE AMINO TRANSFERASE 21 U/L (17-59); BILIRUBIN,DIRECT 0.4 mg/dL (0.0-0.4); BILIRUBIN,TOTAL 0.7 mg/dL (0.2-1.3); BLOOD UREA NITROGEN 43 mg/dL (7-20); CALCIUM 8.6 mg/dL (8.4-10.2); CARBON DIOXIDE 32 mmol/L (22-30); CHLORIDE 100 mmol/L (98-107); GLUCOSE 91 mg/dL (75-110); PHOSPHORUS 3.5 mg/dL (2.5-4.5); POTASSIUM 3.6 mmol/L (3.6-5.0); SODIUM 138.9 mmol/L (137-145); TOTAL PROTEIN 5.2 g/dL (6.3-8.2)
[2018-10-01 09:18] LABS: PLATELET COUNT 72 10^3/uL (150-450)
[2018-10-01] MEDS: CEFEPIME HCL 2 GM in DEXTROSE 5%-WATER 50 ML IV SCH (09:21)
[2018-10-01] MEDS: METOPROLOL TARTRATE 100 MG TABLET PO SCH ×2 (09:25→21:22)
[2018-10-01] MEDS: FEBUXOSTAT 40 MG TABLET PO SCH (09:26)
[2018-10-01] MEDS: FUROSEMIDE 40 MG TABLET PO SCH ×2 (09:26→22:04)
[2018-10-01] MEDS: ENOXAPARIN SODIUM INJ 30 MG/0.3 ML DISP.SYRIN SUBCUT SCH (09:29)
[2018-10-01] MEDS: TAMSULOSIN HCL 0.4 MG CAP.SR.24H PO SCH (17:17)
[2018-10-01] MEDS: ATORVASTATIN CALCIUM 40 MG TABLET PO SCH (21:22)
--- NOTE | 2018-10-01 21:57 | PDOC PROGRESS REPORT ---
Subjective Progress Note for:: 10/01/18 Subjective:: PEG WHITNEY is a 83 year old male with a PMH of HTN, prostate cancer, left renal atrophy (status post nephrectomy), dementia, GERD. The patient was seen this morning on rounds. He is sleeping in bed. Unfortunately I woke the patient from a nap, luckily he did not have any complaints. Laboratory studies show slight improvement in renal function. LCTA. Abdomen is S/NT/ND. Patient denies suprapubic, lower back or flank pain. Very clearly states (multiple times) that he does not want to return home following hospitalization, he needs acute rehab. Family is in agreement. Notified discharge planning that patient will require placement following hospitalization. Appreciate their assistance. Reason For Visit: COMPLICATED UTI Physical Exam Vital Signs: Temp Pulse Resp BP Pulse Ox 97.7 F 85 18 156/87 H 100 10/01/18 16:00 10/01/18 16:00 10/01/18 16:00 10/01/18 16:00 10/01/18 16:00 Intake & Output 09/30/18 10/01/18 10/02/18 06:59 06:59 06:59 Intake Total 610 648 884 Output Total 1940 8200 1150 Balance -1303 -702 -550 Weight 129.3 kg 129.7 kg General appearance: PRESENT: no acute distress, morbidly obese Head exam: PRESENT: atraumatic, normocephalic Eye exam: PRESENT: conjunctiva pink, EOMI, PERRLA. ABSENT: scleral icterus Ear exam: PRESENT: normal external ear exam Mouth exam: PRESENT: moist, tongue midline Neck exam: PRESENT: full ROM. ABSENT: carotid bruit, JVD, lymphadenopathy, thyromegaly Respiratory exam: PRESENT: clear to auscultation jason, decreased breath sounds - bilateral lower lobes - due to body habitus, symmetrical, unlabored. ABSENT: rales, rhonchi, wheezes Cardiovascular exam: PRESENT: RRR. ABSENT: diastolic murmur, rubs, systolic murmur Pulses: PRESENT: normal dorsalis pedis pul Vascular exam: PRESENT: normal capillary refill GI/Abdominal exam: PRESENT: normal bowel sounds, soft. ABSENT: distended, gua rding, mass, organolmegaly, rebound, tenderness Rectal exam: PRESENT: deferred Extremities exam: PRESENT: full ROM, pedal edema. ABSENT: calf tenderness, clubbing Musculoskeletal exam: PRESENT: full ROM. ABSENT: ambulatory Neurological exam: PRESENT: alert, awake, oriented to person, oriented to place, oriented to time, oriented to situation Psychiatric exam: PRESENT: appropriate affect, normal mood Skin exam: PRESENT: dry, intact, warm. ABSENT: cyanosis, rash Results Laboratory Results: 10/01/18 07:53 10/01/18 07:53 10/01/18 10/01/18 07:53 07:53 WBC 6.6 RBC 4.22 L Hgb 12.3 L Hct 37.6 L MCV 89 MCH 29.3 MCHC 32.9 RDW 14.5 H Plt Count 72 L Sodium 138.9 Potassium 3.6 Chloride 100 Carbon Dioxide 32 H Anion Gap 7 BUN 43 H Creatinine 2.65 H Est GFR ( Amer) 28 L Est GFR (Non-Af Amer) 23 L Glucose 91 Calcium 8.6 Phosphorus 3.5 Magnesium 2.4 H Total Bilirubin 0.7 AST 21 ALT 21 Alkaline Phosphatase 58 Total Protein 5.2 L Albumin 2.9 L 09/28/18 13:08 Blood Blood Culture - Final Proteus Mirabilis 09/28/18 09/28/18 09/28/18 09:15 09:15 09:15 Creatine Kinase 31 L CK-MB (CK-2) 0.53 Troponin I < 0.012 NT-Pro-B Natriuret Pep 936 H 09/29/18 10/01/18 05:36 07:53 Creatine Kinase CK-MB (CK-2) Troponin I NT-Pro-B Natriuret Pep 959 H 763 H Impressions: Chest X-Ray 09/28/18 10:25 IMPRESSION: Cardiomegaly. Cannot exclude mild pulmonary edema. Head CT 09/28/18 10:28 IMPRESSION: No acute intracranial pathology. Small vessel white matter disease. EVIDENCE OF ACUTE STROKE: NO. Status: Imported from PACS Assessment and Plan - Diagnosis (1) UTI (urinary tract infection) Qualifiers: Urinary tract infection type: catheter-associated UTI Indwelling urinary catheter type: indwelling urethral catheter Encounter type: initial encounter Qualified Code(s): T83.511A - Infection and inflammatory reaction due to indwel ling urethral catheter, initial encounter; N39.0 - Urinary tract infection, site not specified Is this a current diagnosis for this admission?: Yes Plan: Complicated urinary tract infection with indwelling Chan catheter PMH UTI - various causative agents (E. coli, Klebsiella, Pseudomonas etc.) in the past Urinalysis indicative of UTI: Cloudy, large leuk esterase, WBC>182 Urine cultures growing proteus 1 blood culture bottle in the first set was also (+) proteus. Do not believe the patient has bateremia. All other cultures negative. Antibiotic coverage with cefepime Per [facility] (Dr. Leong) - no need to change out urinary catheter at this time. It was changed only 9 days ago. (2) HTN (hypertension) Qualifiers: Hypertension type: essential hypertension Qualified Code(s): I10 - Essential (primary) hypertension Is this a current diagnosis for this admission?: Yes Plan: PMH HTN Continue home dose anti-HTN PRN hydralazine for SBP > 170 (3) GERD (gastroesophageal reflux disease) Is this a current diagnosis for this admission?: Yes Plan: PMH GERD Continue home dose PPI (4) Weakness Is this a current diagnosis for this admission?: Yes Plan: Secondary to infection PT/OT consult Anticipate SNF rehab following hospitalization Consulting discharge planning, appreciate their assistance (5) History of prostate cancer Is this a current diagnosis for this admission?: Yes Plan: S/p partial prostatectomy History of urinary retention Chronic indwelling Chan catheter Urologist is Dr. Cuellar at [facility] - Time Time Spent with patient: 15-24 minutes Medications reviewed and adjusted accordingly: Yes Anticipated discharge: SNF Within: within 36 hours - Inpatient Certification Based on my medical assessment, after consideration of the patient's comorb idities, presenting symptoms, or acuity I expect that the services needed warrant INPATIENT care.: Yes I certify that my determination is in accordance with my understanding of Medicare's requirements for reasonable and necessary INPATIENT services [42 CFR 412.3e].: Yes Medical Necessity: Need for IV Antibiotics, Risk of Complication if Not Cared For in Hospital
[2018-10-02] MEDS: CLONIDINE HCL 0.2 MG TABLET PO SCH ×3 (05:19→21:44)
[2018-10-02] MEDS: PANTOPRAZOLE SODIUM 20 MG TABLET.DR PO SCH (05:19)
[2018-10-02] MEDS: FEBUXOSTAT 40 MG TABLET PO SCH (07:44)
[2018-10-02] MEDS: ENOXAPARIN SODIUM INJ 30 MG/0.3 ML DISP.SYRIN SUBCUT SCH (09:24)
[2018-10-02] MEDS: CEFAZOLIN 1 GM/D5W RTU 1 GM/50 ML RTUPB IV SCH ×2 (09:28→21:40)
[2018-10-02] MEDS: METOPROLOL TARTRATE 100 MG TABLET PO SCH ×2 (09:33→21:45)
[2018-10-02] MEDS: FUROSEMIDE 40 MG TABLET PO SCH ×2 (09:37→21:41)
[2018-10-02 09:39] LABS: HEMATOCRIT 37.8 % (37.9-51.0); HEMOGLOBIN 12.4 g/dL (13.5-17.0); MEAN CORPUSCULAR HEMOGLOBIN 29.2 pg (27.0-33.4); MEAN CORPUSCULAR HGB CONC 32.7 g/dL (32.0-36.0); MEAN CORPUSCULAR VOLUME 89 fl (80-97); PLATELET COUNT 104 10^3/uL (150-450); RED BLOOD COUNT 4.24 10^6/uL (4.35-5.55); RED CELL DISTRIBUTION WIDTH 14.7 % (11.5-14.0); WHITE BLOOD COUNT 8.3 10^3/uL (4.0-10.5)
[2018-10-02 10:05] LABS: ALANINE AMINOTRANSFERASE 27 U/L (21-72); ALBUMIN 3.1 g/dL (3.5-5.0); ALKALINE PHOSPHATASE 66 U/L (38-126); ANION GAP 8 (5-19); ASPARTATE AMINO TRANSFERASE 46 U/L (17-59); BILIRUBIN,DIRECT 0.4 mg/dL (0.0-0.4); BILIRUBIN,TOTAL 0.7 mg/dL (0.2-1.3); BLOOD UREA NITROGEN 43 mg/dL (7-20); CALCIUM 8.9 mg/dL (8.4-10.2); CARBON DIOXIDE 34 mmol/L (22-30); CHLORIDE 99 mmol/L (98-107); GLUCOSE 141 mg/dL (75-110); PHOSPHORUS 3.1 mg/dL (2.5-4.5); POTASSIUM 3.9 mmol/L (3.6-5.0); SODIUM 140.8 mmol/L (137-145); TOTAL PROTEIN 5.6 g/dL (6.3-8.2)
[2018-10-02] MEDS ORDERED: ENOXAPARIN SODIUM INJ 30 MG/0.3 ML DISP.SYRIN SUBCUT SCH (13:21)
[2018-10-02] MEDS: TAMSULOSIN HCL 0.4 MG CAP.SR.24H PO SCH (17:26)
--- NOTE | 2018-10-02 21:28 | PDOC PROGRESS REPORT ---
Subjective Progress Note for:: 10/02/18 Subjective:: PGE WHITNEY is a 83 year old male with a PMH of HTN, prostate cancer, left renal atrophy (status post nephrectomy), dementia, GERD. Laboratory studies show slight improvement in renal function. Waiting for final results of urine culture to determine antibiotic treatment. LCTA. Abdomen is S/NT/ND. Patient denies suprapubic, lower back or flank pain. Continue current course with Ancef IV to target Proteus Mirabilis. The patient was seen this morning on rounds. He is sitting up in the bedside recliner. Patient was able to work with physical therapy today. Very clearly states (multiple times) that he does not want to return home following hospitalization, he needs acute rehab. Family is in agreement. Patient is able to walk 250 ft with front wheeled walker today. Once urine cultures finalize, the patient is ready to discharge to SNF. Reason For Visit: COMPLICATED UTI Physical Exam Vital Signs: Temp Pulse Resp BP Pulse Ox 97.7 F 85 19 104/72 97 10/02/18 19:53 10/02/18 19:53 10/02/18 19:53 10/02/18 19:53 10/02/18 19:53 Intake & Output 10/01/18 10/02/18 10/03/18 06:59 06:59 06:59 Intake Total 648 1314 950 Output Total 1350 2010 600 Balance -702 -696 350 Weight 129.7 kg 131.2 kg General appearance: PRESENT: no acute distress, morbidly obese Head exam: PRESENT: atraumatic, normocephalic Eye exam: PRESENT: conjunctiva pink, EOMI, PERRLA. ABSENT: scleral icterus Ear exam: PRESENT: normal external ear exam Mouth exam: PRESENT: moist, tongue midline Neck exam: PRESENT: full ROM. ABSENT: carotid bruit, JVD, lymphadenopathy, thyromegaly Respiratory exam: PRESENT: clear to auscultation jason, symmetrical, unlabored. ABSENT: rales, rhonchi, wheezes Cardiovascular exam: PRESENT: RRR. ABSENT: diastolic murmur, rubs, systolic murmur Pulses: PRESENT: normal radial pulses, +1 pedal pulses bilateral Vascular exam: PRESENT: normal capillary refill GI/Abdominal exam: PRESENT: normal bowel sounds, soft. ABSENT: distended, guarding, mass, organolmegaly, rebound, tenderness Rectal exam: PRESENT: deferred Extremities exam: PRESENT: full ROM, pedal edema - +3 pitting edema. ABSENT: calf tenderness, clubbing Musculoskeletal exam: PRESENT: ambulatory - with walker, full ROM Neurological exam: PRESENT: alert, awake, oriented to person, oriented to place, oriented to time, oriented to situation Psychiatric exam: PRESENT: appropriate affect, normal mood. ABSENT: homicidal ideation, suicidal ideation Skin exam: PRESENT: dry, intact, warm, other - multiple areas of bruising to the upper extremities. ABSENT: cyanosis, rash Results Laboratory Results: 10/02/18 08:59 10/02/18 08:59 10/02/18 10/02/18 08:59 08:59 WBC 8.3 RBC 4.24 L Hgb 12.4 L Hct 37.8 L MCV 89 MCH 29.2 MCHC 32.7 RDW 14.7 H Plt Count 104 L Sodium 140.8 Potassium 3.9 Chloride 99 Carbon Dioxide 34 H Anion Gap 8 BUN 43 H Creatinine 2.68 H Est GFR ( Amer) 28 L Est GFR (Non-Af Amer) 23 L Glucose 141 H Calcium 8.9 Phosphorus 3.1 Magnesium 2.4 H Total Bilirubin 0.7 AST 46 ALT 27 Alkaline Phosphatase 66 Total Protein 5.6 L Albumin 3.1 L 09/28/18 09/28/18 09/28/18 09:15 09:15 09:15 Creatine Kinase 31 L CK-MB (CK-2) 0.53 Troponin I < 0.012 NT-Pro-B Natriuret Pep 936 H 09/29/18 10/01/18 05:36 07:53 Creatine Kinase CK-MB (CK-2) Troponin I NT-Pro-B Natriuret Pep 959 H 763 H Impressions: Chest X-Ray 09/28/18 10:25 IMPRESSION: Cardiomegaly. Cannot exclude mild pulmonary edema. Head CT 09/28/18 10:28 IMPRESSION: No acute intracranial pathology. Small vessel white matter disease. EVIDENCE OF ACUTE STROKE: NO. Status: Imported from PACS Assessment and Plan - Diagnosis (1) UTI (urinary tract infection) Qualifiers: Urinary tract infection type: catheter-associated UTI Indwelling urinary catheter type: indwelling urethral catheter Encounter type: initial encounter Qualified Code(s): T83.511A - Infection and inflammatory reaction due to indwelling urethral catheter, initial encounter; N39.0 - Urinary tract infection, site not specified Is this a current diagnosis for this admission?: Yes Plan: Complicated urinary tract infection with indwelling Chan catheter PMH UTI - various causative agents (E. coli, Klebsiella, Pseudomonas etc.) in the past Urinalysis indicative of UTI: Cloudy, large leuk esterase, WBC>182 Urine cultures growing proteus and unidentified G+C 1 blood culture bottle in the first set was also (+) proteus. Do not believe the patient has bacteremia. All other cultures negative. Antibiotic coverage with Ancef Per [facility] U[facility] (Dr. Leong) - no need to change out urinary catheter at this time. It was changed only 09/20/2018 (2) HTN (hypertension) Qualifiers: Hypertension type: essential hypertension Qualified Code(s): I10 - Essential (primary) hypertension Is this a current diagnosis for this admission?: Yes Plan: PMH HTN Continue home dose anti-HTN medication PRN hydralazine for SBP > 170 (3) GERD (gastroesophageal reflux disease) Is this a current diagnosis for this admission?: Yes Plan: PMH GERD Continue home dose PPI (4) Weakness Is this a current diagnosis for this admission?: Yes Plan: Secondary to infection PT/OT consult Anticipate SNF rehab following hospitalization Consulting discharge planning, appreciate their assistance Able to work with PT today, can ambulate 250ft with front wheeled walker (5) History of prostate cancer Is this a current diagnosis for this admission?: Yes Plan: S/p partial prostatectomy History of urinary retention Chronic indwelling Chan catheter Urologist is Dr. Cuellar at [facility] - Time Time Spent with patient: 15-24 minutes Medications reviewed and adjusted accordingly: Yes Anticipated discharge: Home Within: within 24 hours - Inpatient Certification Based on my medical assessment, after consideration of the patient's comorbidities, presenting symptoms, or acuity I expect that the services needed warrant INPATIENT care.: Yes I certify that my determination is in accordance with my understanding of Medicare's requirements for reasonable and necessary INPATIENT services [42 CFR 412.3e].: Yes Medical Necessity: Need for IV Antibiotics, Risk of Complication if Not Cared For in Hospital
[2018-10-02] MEDS: ATORVASTATIN CALCIUM 40 MG TABLET PO SCH (21:40)
[2018-10-03] MEDS: CLONIDINE HCL 0.2 MG TABLET PO SCH ×3 (05:18→21:04)
[2018-10-03] MEDS: PANTOPRAZOLE SODIUM 20 MG TABLET.DR PO SCH (05:18)
[2018-10-03] MEDS: METOPROLOL TARTRATE 100 MG TABLET PO SCH ×2 (10:16→21:04)
[2018-10-03] MEDS: FEBUXOSTAT 40 MG TABLET PO SCH (10:16)
[2018-10-03] MEDS: FUROSEMIDE 40 MG TABLET PO SCH ×2 (10:16→21:05)
[2018-10-03] MEDS ORDERED: DOCUSATE SODIUM 100 MG CAPSULE PO PRN (12:37)
--- NOTE | 2018-10-03 13:19 | PDOC TRANSFER SUMMARY ---
General - Admit/Disc Date/PCP Admission Date/Primary Care Provider: 09/28/18 13:23 K Isabelle LONGORIA MD Discharge Date: 10/03/18 - Discharge Diagnosis (1) UTI (urinary tract infection) Is this a current diagnosis for this admission?: Yes Summary: Improved; WBCs are normal, has remained afebrile >48 hours, has returned to his baseline mental status. Complicated urinary tract infection due to chronic indwelling Chan catheter Urinalysis indicative of UTI: Cloudy, large leuk esterase, WBC>182 Urine cultures grew proteus and Enterococcus faecalis; both sensitive to Augmentin 1 blood culture bottle in the first set was also (+) proteus. Do not believe the patient has bacteremia. All other cultures negative. Previous provider discussed with [facility] Urology (Dr. Leong) - no need to change out urinary catheter at this time. It was changed 09/20/2018. Patient was admitted to the medical floor and provided supportive care with IV fluids. He was empirically placed on IV Ancef; have transition to p.o. Augmentin now that culture and sensitivity reports are available. (2) History of prostate cancer Is this a current diagnosis for this admission?: Yes Summary: Resulting in urinary retention and requirement for chronic indwelling Chan catheter. Follow-up with established urologist as scheduled. Discharge with catheter in place. Continue home dose tamsulosin and Proscar. (3) GERD (gastroesophageal reflux disease) Is this a current diagnosis for this admission?: Yes Summary: Continue home dose PPI (4) HTN (hypertension) Is this a current diagnosis for this admission?: Yes Summary: Patient endorses a history of hypertension; well controlled on home regiment. Continue cardiac diet. Continue amlodipine 2.5 mg every morning, clonidine 0.2 mg p.o. every 8, metoprolol 100 mg p.o. every 12, furosemide 40 mg p.o. every 12 (5) Weakness Is this a current diagnosis for this admission?: Yes Summary: Secondary to infection and hospitalization PT/OT consult obtained; patient is ambulatory with front wheel walker and minimal assist. Patient and family members requesting discharge to SNF for short-term rehab. (6) Conjunctivitis Is this a current diagnosis for this admission?: Yes Summary: Patient complains of bilateral conjunctival redness and itching. He is noted to have purulent drainage to the right eye. Erythromycin ointment every 6 hours; first dose today. Recommend continuing for 7 to 10 days. - Additional Information Resuscitation Status: Full Code Discharge Diet: Cardiac Discharge Activity: Activity As Tolerated, Balance Activity w/Rest, Slowly Increase Activity, Supervised Activity Prescriptions: Amox Tr/Potassium Clavulanate [Augmentin "500" Tablet] 1 tab PO Q8 #30 tablet Erythromycin Base [E-Mycin 0.5% Oph Ointment 3.5 gm] 1 applic OU Q6 #1 tube Home Medications: Amlodipine Besylate [Norvasc 2.5 mg Tablet] 2.5 mg PO QAM 09/28/18 Atorvastatin Calcium [Lipitor 40 mg Tablet] 40 mg PO QHS 09/28/18 Clonidine HCl [Catapres 0.2 mg Tablet] 0.2 mg PO Q8 09/28/18 Docusate Sodium [Colace 100 mg Capsule] 100 mg PO BIDP PRN 09/28/18 Febuxostat [Uloric 40 mg Tablet] 40 mg PO QAM 09/28/18 Finasteride [Proscar 5 mg Tablet] 5 mg PO QAM 09/28/18 Furosemide [Lasix 40 mg Tablet] 40 mg PO Q12 09/28/18 Ibrutinib [Imbruvica] 420 mg PO QPM 09/28/18 Metoprolol Tartrate [Lopressor 100 mg Tablet] 100 mg PO Q12 09/28/18 Niacin [Niaspan ER 500 mg Tablet.sa] 500 mg PO BID@0800,1200 09/28/18 Omeprazole 20 mg PO QAM 09/28/18 Tamsulosin HCl [Flomax 0.4 mg Cap.sr] 0.4 mg PO QPM 09/28/18 Acetaminophen [Tylenol 325 mg Tablet] 975 mg PO Q6HP PRN tablet 10/03/18 Amox Tr/Potassium Clavulanate [Augmentin "500" Tablet] 1 tab PO Q8 #30 tablet 10/03/18 Erythromycin Base [E-Mycin 0.5% Oph Ointment 3.5 gm] 1 applic OU Q6 #1 tube 10/03/18 History of Present Illness Admission Date/PCP: 09/28/18 13:23 Lalitha LONGORIA MD History of Present Illness: Per H&P by [employer]: PEG WHITNEY is a 83 year old male with a PMH of HTN, prostate cancer, left renal atrophy (status post nephrectomy), dementia, GERD. He presents to [facility] with a 3-day history of frequent falls and progressively worsening weakness. [id number] at the bedside, she states that patient fell early this morning in the bathroom, she was unable to get him off the floor, which prompted her to call EMS. The patient denies LOC or head trauma. [id number] states that the patient has "not been acting like himself "this past week. Upon arrival to the emergency department, patient was hypotensive (BP 83/56) and tachypneic (RR 23). HR 70. SPO2 92% on room air. Low-grade fever 99F. CXR shows cardiomegaly, no other significant cardiopulmonary pathology. Head CT WNL. Laboratory studies indicative of mild hyponatremia (NA 136), hypokalemia (K 3.5), CHRISTINE (creatinine 2.69), mildly elevated proBNP (936). Urinalysis indicative of UTI: Cloudy appearance, large leuk esterase, WBCs>182. Patient was treated with 1L IVF, IV vancomycin and cefepime. Upon assessment, patient is resting comfortably in bed. He endorses moderate fatigue and weakness, no other complaints. He is alert and oriented, hard of hearing despite wearing hearing aids. He is able to answer most questions appropriately. Lungs are clear to auscultation, diminished in the bilateral lower lobes. Pulses are palpable in the upper extremities, +1 in the lower extremities. +4 pitting edema is noted in the bilateral lower extremities, family states this is chronic. Indwelling Chan catheter present, draining cloudy yellow urine with a moderate amount of sediment. Plan to admit to the hospitalist service for complicated UTI. Physical Exam Vital Signs: Temp Pulse Resp BP Pulse Ox 98.0 F 69 17 130/73 H 93 10/03/18 08:13 10/03/18 08:13 10/03/18 08:13 10/03/18 08:13 10/03/18 08:13 Intake & Output 10/02/18 10/03/18 10/04/18 06:59 06:59 06:59 Intake Total 1314 1480 Output Total 2009 1520 Balance -696 -40 Weight 131.2 kg 132.2 kg General appearance: PRESENT: no acute distress, cooperative, hard of hearing, well-developed, well-nourished - Overweight Head exam: PRESENT: atraumatic, normocephalic Eye exam: PRESENT: conjunctiva pink, EOMI, PERRLA. ABSENT: scleral icterus Ear exam: PRESENT: normal external ear exam Mouth exam: PRESENT: moist, tongue midline Neck exam: ABSENT: carotid bruit, JVD, lymphadenopathy, thyromegaly Respiratory exam: PRESENT: clear to auscultation jason. ABSENT: rales, rhonchi, wheezes Cardiovascular exam: PRESENT: RRR. ABSENT: diastolic murmur, rubs, systolic murmur Pulses: PRESENT: normal dorsalis pedis pul Vascular exam: PRESENT: normal capillary refill GI/Abdominal exam: PRESENT: normal bowel sounds, soft. ABSENT: distended, guarding, mass, organolmegaly, rebound, tenderness Rectal exam: PRESENT: deferred Gentrourinary exam: PRESENT: indwelling catheter Extremities exam: PRESENT: full ROM, +2 edema - BLE. ABSENT: calf tenderness, clubbing, pedal edema Musculoskeletal exam: PRESENT: ambulatory - With walker Neurological exam: PRESENT: alert, awake, oriented to person, oriented to place, oriented to time, oriented to situation, CN II-XII grossly intact. ABSENT: motor sensory deficit Psychiatric exam: PRESENT: appropriate affect, normal mood. ABSENT: homicidal ideation, suicidal ideation Skin exam: PRESENT: dry, intact, warm. ABSENT: cyanosis, rash Results Laboratory Results: 10/02/18 08:59 10/02/18 08:59 09/28/18 10:23 Catheterized Urine Urine Culture - Final Proteus Mirabilis Enterococcus Faecalis(Group D) 09/28/18 09/28/18 09/28/18 09:15 09:15 09:15 Creatine Kinase 31 L CK-MB (CK-2) 0.53 Troponin I < 0.012 NT-Pro-B Natriuret Pep 936 H 09/29/18 10/01/18 05:36 07:53 Creatine Kinase CK-MB (CK-2) Troponin I NT-Pro-B Natriuret Pep 959 H 763 H Impressions: Chest X-Ray 09/28/18 10:25 IMPRESSION: Cardiomegaly. Cannot exclude mild pulmonary edema. Head CT 09/28/18 10:28 IMPRESSION: No acute intracranial pathology. Small vessel white matter disease. EVIDENCE OF ACUTE STROKE: NO. Transfer Plan - Disposition Transfer Plan: Discharge to SNF for short term rehab. - Time Spent with Patient Time spent with patient: Less than 30 Minutes Qualifiers - * PATIENT BEING DISCHARGED WITH ANY OF THE FOLLOWING DIAGNOSIS: No Acute Heart Failure - Is this a Heart Failure Patient?: No Plan Discharge Plan: Follow-up with primary care provider within 1 week of discharge from SNF. Follow-up with established urologist as scheduled. Complete course of antibiotic therapy. Return to the emergency department as needed for concerning symptoms. Time Spent: Greater than 30 Minutes
--- NOTE | 2018-10-03 13:22 | ADVANCED CARE ---
- Diagnosis (1) UTI (urinary tract infection) Diagnosis Current: Yes (2) History of prostate cancer Diagnosis Current: Yes (3) GERD (gastroesophageal reflux disease) Diagnosis Current: Yes (4) HTN (hypertension) Diagnosis Current: Yes (5) Weakness Diagnosis Current: Yes (6) Conjunctivitis Diagnosis Current: No Attendance: Patient, (Payton Boogie), daughter Resuscitation Status: Full Code Discussion: Discussed recommendation that all family members review advanced care planning goals periodically. Advised that transition from hospital to SNF environment was an opportunity to discuss goals of care in the event of cardiac or resp iratory arrest/failure. The patient's indicated that she wanted all aggressive measures to be completed. Patient does acknowledge that his would be his surrogate healthcare decision maker, however is less sure about desire for CPR and intubation. He does concede to her at this time. Patient's daughter indicates that she would like to discuss this further with the patient's and other family members. They are provided a most form for review and to aid in goals of care discussion. Care Planning Goals: FULL CODE Document(s) Completed: MOST (provided to family members for review) Time Spent: 20 min
[2018-10-03] MEDS: ERYTHROMYCIN 0.5% OPH OINTMENT 3.5 GM TUBE OU SCH ×2 (15:58→19:17)
[2018-10-03] MEDS: AMOXICILLIN TR/POT CLAVULANATE 500-125 MG TAB PO SCH ×2 (15:58→21:04)
[2018-10-03] MEDS: TAMSULOSIN HCL 0.4 MG CAP.SR.24H PO SCH (19:17)
[2018-10-03] MEDS: ATORVASTATIN CALCIUM 40 MG TABLET PO SCH (21:05)
[2018-10-03 23:01] VITALS: BP 103/63
[2018-10-04] MEDS ORDERED: FINASTERIDE 5 MG TABLET PO SCH (08:00)
[2018-10-04] MEDS ORDERED: NIACIN 500 MG TABLET.SA PO SCH (08:00)
== END 2018-10-03 21:33 | DRG 699 ==
LOC: ER 08:39 → EH 13:23 → 4S 16:37
PROVIDERS: ADMIT Internal Medicine; ATTEND Internal Medicine
DX: T83.518A Infection and inflammatory reaction due to other urinary catheter, initial encounter (principal); N39.0 Urinary tract infection, site not specified; I13.0 Hypertensive heart and chronic kidney disease with heart failure and stage 1 through stage 4 chronic kidney disease, or unspecified chronic kidney disease; E87.1 Hypo-osmolality and hyponatremia; N17.9 Acute kidney failure, unspecified; N18.4 Chronic kidney disease, stage 4 (severe); Z90.5 Acquired absence of kidney; Z91.018 Allergy to other foods; I50.9 Heart failure, unspecified; E78.5 Hyperlipidemia, unspecified; J44.9 Chronic obstructive pulmonary disease, unspecified; N40.1 Benign prostatic hyperplasia with lower urinary tract symptoms; N18.3 Chronic kidney disease, stage 3 (moderate); K21.9 Gastro-esophageal reflux disease without esophagitis; M19.90 Unspecified osteoarthritis, unspecified site; Z85.72 Personal history of non-Hodgkin lymphomas; F03.90 Unspecified dementia, unspecified severity, without behavioral disturbance, psychotic disturbance, mood disturbance, and anxiety; E87.6 Hypokalemia; I73.9 Peripheral vascular disease, unspecified; M10.9 Gout, unspecified; F17.220 Nicotine dependence, chewing tobacco, uncomplicated; Y84.6 Urinary catheterization as the cause of abnormal reaction of the patient, or of later complication, without mention of misadventure at the time of the procedure; E66.01 Morbid (severe) obesity due to excess calories; N13.9 Obstructive and reflux uropathy, unspecified; B96.4 Proteus (mirabilis) (morganii) as the cause of diseases classified elsewhere; H10.9 Unspecified conjunctivitis; R29.6 Repeated falls; Z91.81 History of falling; Z68.36 Body mass index [BMI] 36.0-36.9, adult
CPT/HCPCS: 36415; 70450; 71045; 80053; 81001; 82550; 82553; 83036; 83735; 83880; 84100; 84443; 84484; 85025; 85027; 87040; 87077; 87086; 87088; 87186; 93005; 93010; 99285; J0690; J0692; J3370; J3475; J3480; J3490; J7030; J7060

== ENCOUNTER → 2018-11-28 | Outpatient (CLI) | payer MEDICARE, OTHER ==
--- NOTE | 2018-11-28 11:01 | RADIOLOGY REPORT (SQ) ---
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 Images reviewed with lung, soft tissue and bone windows. Reconstructed coronal and sagittal MPR images reviewed. All images st ored on PACS. All CT scanners at this facility use dose modulation, iterative reconstruction, and/or weight based d osing when appropriate to reduce radiation dose to as low as reasonably achievable (ALARA). [facility]: Dose Right [facility]: CareDose [facility]: Dose Right [facility]: Teradose 4D [facility]: LeadiD RADIATION DOSE: CT Rad equipment meets quality standard of care and radiation dose reduction techniq ues were employed. CTDIvol: 12.0 - 14.4 mGy. DLP: 1428 mGy-cm. mGy. LIMITATIONS: No technical limitations. FINDINGS: LUNGS AND PLEURA: No masses, infiltrates, or pneumothorax. No pleural effusions or pleura l calcifications. Bilateral dependent hypoventilatory change HILAR AND MEDIASTINAL STRUCTURES: No identified masses or abnormal nodes. No obvious aneurysm. 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 Scattered coronar y atherosclerosis. No pericardial effusion. Aortic annulus calcifications. UPPER ABDOMEN: See separate report of the CT of the abdomen. THYROID AND OTHER SOFT TISSUES: No masses. No adenopathy. BONES: No significant finding. HARDWARE: None in the chest. OTHER: No other significant findings. IMPRESSION: 1. No evidence of metastatic disease within the chest. 2. 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 TECHNICAL DOCUMENTATION: JOB ID: [id number] Quality ID # [id number]: Final reports with documentation of one or more dose reduction techniques (e.g., Au tomated exposure control, adjustment of the mA and/or kV according to patient size, use of iterative reconstruction technique) 2010 [employer]- All Rights Reserved Reading location - IP/workstation name: [email or web address]-
--- NOTE | 2018-11-28 11:08 | RADIOLOGY REPORT (SQ) ---
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 Images reviewed with lung, soft tissue, and bone windows. Reconstructed coronal and sagittal MPR images revi ewed. All images stored on PACS. All CT scanners at this facility use dose modulation, iterative reconstruction, and/or weight based d osing when appropriate to reduce radiation dose to as low as reasonably achievable (ALARA). [facility]: Dose Right [facility]: CareDose [facility]: Dose Right [facility]: Teradose 4D [facility]: [employer] RADIATION DOSE: mGy. LIMITATIONS: None. FINDINGS: LOWER CHEST: No significant findings. No nodules or infiltrates. NON-CONTRASTED LIVER, SPLEEN, ADRENALS: Evaluation limited by lack of IV contrast. No identified sign ificant masses. PANCREAS: No masses. No peripancreatic inflammatory changes. GALLBLADDER: Surgically absent. RIGHT KIDNEY AND URETER: Multiple right renal cysts unchanged. No significant calcifications. No hydronephrosis or hydroureter. LEFT KIDNEY AND URETER: Prior left nephrectomy. AORTA AND RETROPERITONEUM: No aneurysm. No retroperitoneal masses or adenopathy. IVC filter is in pl missael. BOWEL AND PERITONEAL CAVITY: No obvious masses or inflammatory changes. No free fluid. APPENDIX: Normal. PELVIS, BLADDER, AND ABDOMINAL WALL:The bladder is decompressed by Chan catheter. BONES: No significant findings. OTHER: No other significant finding. IMPRESSION: No evidence of metastatic disease in the abdomen or pelvis. Prior left nephrectomy. Mu ltiple right renal cysts. COMMENT: Quality ID # [id number]: Final reports with documentation of one or more dose reduction techniques (e.g., Automated exposure control, adjustment of the mA and/or kV according to patient size, use of iterative reconstruction technique) TECHNICAL DOCUMENTATION: JOB ID: [id number] [employer]- All Rights Reserved Reading location - IP/workstation name: [email or web address]
== END ==
LOC: RAD 09:10
PROVIDERS: ATTEND Physician Assistant Medical
DX: C82.38 Follicular lymphoma grade IIIa, lymph nodes of multiple sites (principal); Q61.02 Congenital multiple renal cysts; Z90.5 Acquired absence of kidney; I77.819 Aortic ectasia, unspecified site
CPT/HCPCS: 71250; 74176

== ENCOUNTER → 2019-01-09 | Outpatient (CLI) | payer MEDICARE, OTHER ==
[2019-01-09 11:04] LABS: HEMATOCRIT 39.1 % (37.9-51.0); HEMOGLOBIN 12.8 g/dL (13.5-17.0); MEAN CORPUSCULAR HEMOGLOBIN 29.7 pg (27.0-33.4); MEAN CORPUSCULAR HGB CONC 32.8 g/dL (32.0-36.0); MEAN CORPUSCULAR VOLUME 91 fl (80-97); RED BLOOD COUNT 4.32 10^6/uL (4.35-5.55); RED CELL DISTRIBUTION WIDTH 14.4 % (11.5-14.0); WHITE BLOOD COUNT 7.2 10^3/uL (4.0-10.5)
[2019-01-09 11:16] LABS: ANION GAP 8 (5-19); BLOOD UREA NITROGEN 52 mg/dL (7-20); CALCIUM 9.4 mg/dL (8.4-10.2); CARBON DIOXIDE 32 mmol/L (22-30); CHLORIDE 98 mmol/L (98-107); GLUCOSE 95 mg/dL (75-110); POTASSIUM 4.3 mmol/L (3.6-5.0)
[2019-01-09 11:26] LABS: PLATELET COUNT 85 10^3/uL (150-450)
== END ==
LOC: OD 09:57
PROVIDERS: ATTEND Internal Medicine Nephrology
DX: I12.9 Hypertensive chronic kidney disease with stage 1 through stage 4 chronic kidney disease, or unspecified chronic kidney disease (principal); N18.3 Chronic kidney disease, stage 3 (moderate); D63.1 Anemia in chronic kidney disease; E66.9 Obesity, unspecified
CPT/HCPCS: 36415; 80048; 83735; 85027

== ENCOUNTER → 2019-02-13 | Outpatient (CLI) | payer MEDICARE, OTHER ==
[2019-02-13 10:24] LABS: ANION GAP 10 (5-19); BLOOD UREA NITROGEN 68 mg/dL (7-20); CALCIUM 8.9 mg/dL (8.4-10.2); CARBON DIOXIDE 33 mmol/L (22-30); CHLORIDE 98 mmol/L (98-107); GLUCOSE 106 mg/dL (75-110); PHOSPHORUS 4.3 mg/dL (2.5-4.5); POTASSIUM 4.4 mmol/L (3.6-5.0)
[2019-02-13 10:29] LABS: ABSOLUTE BASOPHILS # (AUTO) 0.1 10^3/uL (0.0-0.2); ABSOLUTE EOSINOPHILS # (AUTO) 0.1 10^3/uL (0.0-0.6); ABSOLUTE MONOCYTES (AUTO) 0.4 10^3/uL (0.1-1.4); ABSOLUTE NEUT (AUTO) 4.1 10^3/uL (1.7-8.2); BASOPHILS % (AUTO) 0.8 % (0-2); EOSINOPHILS % (AUTO) 1.5 % (0-6); HEMATOCRIT 38.5 % (37.9-51.0); HEMOGLOBIN 12.7 g/dL (13.5-17.0); LYMPHOCYTES % (AUTO) 29.2 % (13-45); MEAN CORPUSCULAR HEMOGLOBIN 29.9 pg (27.0-33.4); MEAN CORPUSCULAR HGB CONC 32.9 g/dL (32.0-36.0); MEAN CORPUSCULAR VOLUME 91 fl (80-97); MONOCYTES % (AUTO) 6.6 % (3-13); RED BLOOD COUNT 4.23 10^6/uL (4.35-5.55); RED CELL DISTRIBUTION WIDTH 14.5 % (11.5-14.0); SEGMENTED NEUTROPHILS % (AUTO) 61.9 % (42-78); TOTAL CELLS COUNTED % (AUTO) 100 %; WHITE BLOOD COUNT 6.7 10^3/uL (4.0-10.5)
[2019-02-13 11:04] LABS: PLATELET COUNT 72 10^3/uL (150-450)
== END ==
LOC: OD 09:30
PROVIDERS: ATTEND Internal Medicine Nephrology
DX: I12.9 Hypertensive chronic kidney disease with stage 1 through stage 4 chronic kidney disease, or unspecified chronic kidney disease (principal); N18.4 Chronic kidney disease, stage 4 (severe); Z90.5 Acquired absence of kidney
CPT/HCPCS: 36415; 80048; 83735; 83970; 84100; 85025

== ENCOUNTER 2019-04-24 16:41 | Inpatient (IN) | payer MEDICARE, OTHER ==
[2019-04-24] MEDS ORDERED: VANCOMYCIN HCL INJ 1000 MG VIAL IV ONE (18:00)
[2019-04-24] MEDS ORDERED: NORMAL SALINE 1000 ML 1,000 ML IV ONE (18:01)
[2019-04-24] MEDS ORDERED: PIPERACILLIN/TAZOBACTAM 3.375 GM VIAL IV ONE (18:01)
--- NOTE | 2019-04-24 18:18 | ER Document Report ---
ED General - General Chief Complaint: Urinary Problem Stated Complaint: WEAKNESS Time Seen by Provider: 04/24/19 17:07 Primary Care Provider: Lalitha LONGORIA MD [Primary Care Provider] - Follow up as needed TRAVEL OUTSIDE OF THE [place] IN LAST 30 DAYS: No - HPI Notes: 84-year-old male with history of indwelling Chan and recurrent urinary tract infections presents today for mild altered mental status and subjective low- grade fever at home past 24 hours. Patient is a poor historian as is his who accompanies him. His [id number] is here and I am able to get a lot of useful information from her and I have also reviewed in detail his prior discharge summary from October 2018 when he presented under similar circumstances. - Related Data Allergies/Adverse Reactions: sesame seed Allergy (Intermediate, Verified 04/24/19 16:59) Hives Past Medical History - General Information source: Patient, Relative, [facility] Records - Social History Smoking Status: Former Smoker Chew tobacco use (# tins/day): Yes Family History: Reviewed & Not Pertinent Patient has suicidal ideation: No Patient has homicidal ideation: No - Past Medical History Cardiac Medical History: Reports: Hx Congestive Heart Failure, Hx DVT, Hx Hypercholesterolemia, Hx Hypertension - MEDICATIONS, Hx Peripheral Vascular Disease Denies: Hx Heart Attack Pulmonary Medical History: Reports: Hx COPD, Hx Pneumonia Denies: Hx Asthma, Hx Tuberculosis Neurological Medical History: Denies: Hx Seizures Renal/ Medical History: Reports: Hx Benign Prostatic Hyperplasia, Hx Renal Insufficiency - stage 3. 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 Denies: Hx Hiatal Hernia, Hx Ulcer Musculoskeletal Medical History: Reports Hx Arthritis, Reports Hx Gout Psychiatric Medical History: Denies: Hx Depression Past Surgical History: Reports: Hx Cholecystectomy, Hx Kidney (Renal Surgery) - L NEPHRECTOMY, Hx Orthopedic Surgery - L KNEE, Hx Vascular Surgery - Huber Filter, Other - Transurethral resection of the prostate - 11/2016. Denies: Hx Open Heart Surgery, Hx Pacemaker - Immunizations Hx Diphtheria, Pertussis, Tetanus Vaccination: No Hx Pneumococcal Vaccination: 01/02/14 Review of Systems - Review of Systems Notes: Constitutional: As per HPI. HENT: Negative for sore throat. Eyes: Negative for visual changes. Cardiovascular: Negative for chest pain. Respiratory: Negative for shortness of breath. Gastrointestinal: Decreased oral intake. Negative for abdominal pain, vomiting or diarrhea. Genitourinary: As per HPI. Musculoskeletal: Negative for back pain. Skin: Negative for rash. Neurological: Negative for headaches, focal weakness or numbness. 10 point ROS negative except as marked above and in HPI. Physical Exam - Vital signs Vitals: Resp BP Pulse Ox 19 109/62 94 04/24/19 16:56 04/24/19 16:56 04/24/19 16:56 Notes: GENERAL: Frail elderly man with somewhat slow responses and some confabulation. SKIN: Good turgor. Scattered ecchymoses of all 4 extremities. HEAD: Normocephalic atraumatic. EYES: PERRLA. EOMI. Conjunctivae and sclerae clear. EARS: CANALS AND TMS CLEAR. NOSE: CLEAR. MOUTH: Moist mucosa. Good dentition. No stridor or edema. No drooling. NECK: Supple. No masses or thyromegaly. No adenopathy. Carotids 2+ without bruits. No JVD. BACK: Symmetrical without tenderness. CHEST: Respirations unlabored. Breath sounds clear and symmetrical. HEART: Regular rhythm. No murmur gallop or rub. ABDOMEN: Soft nontender without masses, organomegaly or rebound. Bowel sounds normally active. No bruits. GENITALIA: Chan catheter in situ with cloudy urine present. EXTREMITIES: Trace pretibial edema bilaterally. No calf tenderness. Cap refill less than 1.5 seconds. Dorsalis pedis and posterior tibial pulses 3+ and symmetrical. NEUROLOGICAL: GCS 14. Patient was disoriented to day. Responses are little slow and there is some mild confabulation present fluent speech. Cranial nerves II through XII intact. Sensorimotor and cerebellar normal. Normal tone. PSYCHIATRIC: Appropriate affect. Course - Re-evaluation Re-evalutation: 04/24/19 19:17 This man appears to have recurrent urinary tract infection. His lactate level was normal. He is hemodynamically stable. White count is normal. He has some chronic renal insufficiency his creatinine is consistent with previous baseline. Chest x-ray did not show an infiltrate. Patient has received IV Zosyn and vancomycin. Findings are discussed with on-call hospitalist Dr. William Curtis who has agreed to admit to the floor. Findings are discussed with the patient's family. - Vital Signs Vital signs: Temp Pulse Resp BP Pulse Ox 100.8 F H 75 19 116/70 99 04/24/19 16:59 04/24/19 16:59 04/24/19 19:01 04/24/19 19:01 04/24/19 19:01 - Laboratory Result Diagrams: 04/24/19 16:50 04/24/19 16:50 Laboratory results interpreted by me: 04/24/19 04/24/19 04/24/19 16:50 16:50 16:50 RBC 4.21 L Hgb 12.5 L RDW 14.7 H Plt Count 62 L Lymph % (Auto) 8.4 L Seg Neutrophils % 79.4 H Sodium 136.3 L Chloride 97 L BUN 51 H Creatinine 3.18 H Est GFR ( Amer) 23 L Est GFR (MDRD) Non-Af 19 L NT-Pro-B Natriuret Pep 1330 H Total Protein 5.5 L Albumin 3.2 L Urine Protein Urine Blood Leukocyte Esterase Rfl 04/24/19 18:25 RBC Hgb RDW Plt Count Lymph % (Auto) Seg Neutrophils % Sodium Chloride BUN Creatinine Est GFR ( Amer) Est GFR (MDRD) Non-Af NT-Pro-B Natriuret Pep Total Protein Albumin Urine Protein 30 H Urine Blood LARGE H Leukocyte Esterase Rfl LARGE H - EKG Interpretation by Me Additional EKG results interpreted by me: 04/24/19 19:16 12-lead EKG was read contemporaneously by me 1800 hrs. This is compared to prior tracing from 09/28/2018 and again shows normal sinus rhythm rate of 71 left axis deviation. Normal intervals. Nonspecific T wave changes with no ST segment shifts. Discharge - Discharge Clinical Impression: UTI (urinary tract infection) Qualifiers: Urinary tract infection type: catheter-associated UTI Indwelling urinary catheter type: indwelling urethral catheter Encounter type: initial encounter Qualified Code(s): T83.511A - Infection and inflammatory reaction due to indwelling urethral catheter, initial encounter; N39.0 - Urinary tract infection, site not specified Non Hodgkin's lymphoma Qualifiers: Non-Hodgkin lymphoma type: unspecified type Lymphoma site: unspecified region Qualified Code(s): C85.90 - Non-Hodgkin lymphoma, unspecified, unspecified site Condition: Fair Disposition: ADMITTED INPATIENT Admitting Provider: Kirsten (Hospitalist) Unit Admitted: Medical Floor Referrals: Lalitha LONGORIA MD [Primary Care Provider] - Follow up as needed
[2019-04-24 18:24] LABS: ABSOLUTE LYMPHOCYTES (AUTO) 0.6 10^3/uL (0.5-4.7); ABSOLUTE MONOCYTES (AUTO) 0.8 10^3/uL (0.1-1.4); ABSOLUTE NEUT (AUTO) 5.4 10^3/uL (1.7-8.2); BASOPHILS % (AUTO) 0.4 % (0-2); HEMOGLOBIN 12.5 g/dL (13.5-17.0); LYMPHOCYTES % (AUTO) 8.4 % (13-45); MEAN CORPUSCULAR HEMOGLOBIN 29.7 pg (27.0-33.4); MEAN CORPUSCULAR HGB CONC 32.9 g/dL (32.0-36.0); MEAN CORPUSCULAR VOLUME 90 fl (80-97); MONOCYTES % (AUTO) 11.8 % (3-13); RED BLOOD COUNT 4.21 10^6/uL (4.35-5.55); RED CELL DISTRIBUTION WIDTH 14.7 % (11.5-14.0); SEGMENTED NEUTROPHILS % (AUTO) 79.4 % (42-78); TOTAL CELLS COUNTED % (AUTO) 100 %; WHITE BLOOD COUNT 6.8 10^3/uL (4.0-10.5)
[2019-04-24 18:28] LABS: PROTHROMBIN TIME 14.2 SEC (11.4-15.4)
[2019-04-24 18:33] LABS: VENOUS BLOOD BASE EXCESS 5.6 mmol/L; VENOUS BLOOD HCO3 31.1 mmol/L (20-32); VENOUS BLOOD PH 7.42 (7.30-7.42)
[2019-04-24 18:41] LABS: ALBUMIN 3.2 g/dL (3.5-5.0); ALKALINE PHOSPHATASE 74 U/L (38-126); ANION GAP 9 (5-19); ASPARTATE AMINO TRANSFERASE 25 U/L (17-59); BILIRUBIN,DIRECT 0.2 mg/dL (0.0-0.4); BILIRUBIN,TOTAL 1.3 mg/dL (0.2-1.3); BLOOD UREA NITROGEN 51 mg/dL (7-20); CALCIUM 8.7 mg/dL (8.4-10.2); CARBON DIOXIDE 30 mmol/L (22-30); CHLORIDE 97 mmol/L (98-107); GLUCOSE 109 mg/dL (75-110); POTASSIUM 3.8 mmol/L (3.6-5.0); TOTAL PROTEIN 5.5 g/dL (6.3-8.2)
[2019-04-24 18:43] LABS: PLATELET COUNT 62 10^3/uL (150-450)
[2019-04-24 18:59] LABS: AMORPHOUS SEDIMENT,URINE TRACE /HPF; APPEARANCE,URINE CLOUDY; BILIRUBIN,URINE NEGATIVE (NEGATIVE); COLOR,URINE YELLOW; GLUCOSE, URINE NEGATIVE (NEGATIVE); KETONES,URINE NEGATIVE (NEGATIVE); PROTEIN,URINE 30 mg/dL (NEGATIVE); URINE SPECIFIC GRAVITY 1.008; UROBILINOGEN,URINE NEGATIVE mg/dL (<2.0)
--- NOTE | 2019-04-24 19:05 | RADIOLOGY REPORT (SQ) ---
EXAM DESCRIPTION: CHEST SINGLE VIEW COMPLETED DATE/TIME: 04/24/2019 6:19 pm REASON FOR STUDY: fever, hypoxia COMPARISON: 09/28/2018 EXAM PARAMETERS: NUMBER OF VIEWS: One view. TECHNIQUE: Single frontal radiographic view of the chest acquired. RADIATION DOSE: NA LIMITATIONS: None. FINDINGS: LUNGS AND PLEURA: Low lung volumes. No infiltrate, effusion, or mass. MEDIASTINUM AND HILAR STRUCTURES: No masses. Contour normal. HEART AND VASCULAR STRUCTURES: Heart normal in size. Normal vasculature. BONES: No acute findings. HARDWARE: None in the chest. OTHER: No other significant finding. IMPRESSION: Low lung volumes. No acute cardiopulmonary finding. TECHNICAL DOCUMENTATION: JOB ID: [id number] [employer]- All Rights Reserved Reading location - IP/workstation name: [email or web address]
[2019-04-24 19:08] LABS: A TYPE INFLUENZA AG NEGATIVE (NEGATIVE)
[2019-04-24 19:09] LABS: B INFLUENZA AG NEGATIVE (NEGATIVE)
--- NOTE | 2019-04-24 19:33 | EKG REPORT ---
SEVERITY:- BORDERLINE ECG - SINUS RHYTHM BORDERLINE LEFT AXIS DEVIATION BORDERLINE T ABNORMALITIES, INFERIOR LEADS : Confirmed by: Alexander Sethi MD 24-Apr-2019 19:32:56
[2019-04-24] MEDS ORDERED: ONDANSETRON HCL INJ/PF 4 MG/2 ML SDV IV PRN (20:08)
[2019-04-24] MEDS ORDERED: MAG HYDROX/AL HYDROX/SIMETH SUSP 30 ML UDCUP PO PRN (20:08)
[2019-04-24] MEDS ORDERED: MORPHINE SULFATE 10 MG/ML INJ IV PRN ×3 (20:13)
[2019-04-24] MEDS ORDERED: ACETAMINOPHEN 325 MG TABLET PO PRN (20:13)
[2019-04-24] MEDS ORDERED: DIAZEPAM INJ 10 MG/2 ML DISP.SYRIN IV PRN (20:13)
[2019-04-24] MEDS ORDERED: HYDRALAZINE HCL INJ/PF 20 MG/1 ML SDV IV PRN (20:15)
[2019-04-24] MEDS ORDERED: METOPROLOL TARTRATE PF/INJ 5 MG/5 ML SDV IV PRN (20:15)
[2019-04-24] MEDS: HEPARIN SOD (PORCINE) 5,000 UNIT/ML 1 ML VIAL SUBCUT SCH (22:48)
--- NOTE | 2019-04-24 23:46 | PDOC H&P ---
History of Present Illness Admission Date/PCP: 04/24/2019 19:37 K V PADMINI LONGORIA MD Patient complains of: Altered mental status History of Present Illness: PEG BOOGIE is a 84 year old male who presented to the emergency room with a 1 day history of altered mental status. Patient has been noted by his daughter to be progressively more confused than usual over the last 24 hours. His confusion began gradually, has been of moderate severity, has been accompanied by a subjective fever and has been associated with decreased oral intake. The patient is confused and unable to provide reliable historical information. His daughter has not noted any additional accompanying or associated signs and symptoms. She admits several prior similar episodes due to urinary tract infections. She has not identified any aggravating or ameliorating factors for his altered mental status. In the emergency room he was noted to have a chronically indwelling Chan catheter, pyuria and a normal WBC. He was started on vancomycin and Zosyn intravenously in the emergency room and subsequently admitted to the hospitalist service for further evaluation treatment. Past Medical History Past Medical History: Due to the patient's dementia and confusion he is unable to provide meaningful past medical history, past surgical history, social history and family history. The information presented here is the most reliable information obtained from the best available source. Cardiac Medical History: Reports: Congestive Heart Failure, DVT, Hyperlipidema, Hypertension, Peripheral Vascular Disease Denies: Coronary Artery Disease, Myocardial Infarction Pulmonary Medical History: Reports: Chronic Obstructive Pulmonary Disease (C OPD), Pneumonia Denies: Asthma, Tuberculosis EENT Medical History: Denies: Cataracts, Ears - Hearing aids Neurological Medical History: Reports: Ischemic CVA Denies: Hemorrhagic CVA, Seizures Endocrine Medical History: Denies: Diabetes Mellitus Type 1, Diabetes Mellitus Type 2, Hyperthyroidism, Hypothyroidism Renal/ Medical History: Reports: Chronic Kidney Disease, Other - Benign prostatic hyperplasia, left renal atrophy Malignancy Medical History: Reports: Lymphoma - Non-hodgkin's, Other - Prostatic cancer GI Medical History: Reports: Gastroesophageal Reflux Disease Denies: Cirrhosis, Crohn's Disease, Hepatitis, Hiatal Hernia, Peptic Ulcer Disease, Ulcerative Colitis Musculoskeltal Medical History: Reports: Arthritis, Gout, Other - History of symptomatic GI bleed Skin Medical History: Denies: Eczema, Psoriasis Psychiatric Medical History: Denies: Alcohol Dependency, Depression, Substance Abuse, Tobacco Dependency Traumatic Medical History: Reports: None Hematology: Reports: Anemia - With GI bleed Denies: Bleeding Tendencies Infectious Medical History: Reports: None Past Surgical History Past Surgical History: Due to the patient's dementia and confusion he is unable to provide meaningful past medical history, past surgical history, social history and family history. The information presented here is the most reliable information obtained from the best available source. Past Surgical History: Reports: Cholecystectomy, Orthopedic Surgery - Left knee surgery, Vascular Surgery - Huber Filter, Other - Transurethral resection of the prostate - 11/2016 Denies: Pacemaker Social History Information Source: Relative Lives with: Family Smoking Status: Former Smoker Electronic Cigarette use?: No Frequency of Alcohol Use: None Hx Recreational Drug Use: No Drugs: None Hx Prescription Drug Abuse: No Past Social History Note: Due to the patient's dementia and confusion he is unable to provide meaningful past medical history, past surgical history, social history and family history. The information presented here is the most reliable information obtained from the best available source. - Advance Directive Resuscitation Status: Full Code Surrogate healthcare decision maker:: Jia Boogie Family History Family History: Due to the patient's dementia and confusion he is unable to provide meaningful past medical history, past surgical history, social history and family history. The information presented here is the most reliable information obtained from the best available source. Parental Family History Reviewed: No - No history available Children Family History Reviewed: No Sibling(s) Family History Reviewed.: No Medication/Allergy Home Medications: Atorvastatin Calcium [Lipitor 40 mg Tablet] 40 mg PO QHS 04/24/19 Clonidine HCl [Catapres 0.2 mg Tablet] 0.2 mg PO Q12 04/24/19 Febuxostat [Uloric 40 mg Tablet] 40 mg PO QAM 04/24/19 Finasteride [Proscar 5 mg Tablet] 5 mg PO QAM 04/24/19 Furosemide [Lasix 40 mg Tablet] 40 mg PO QPM 04/24/19 Furosemide [Lasix 80 mg Tablet] 80 mg PO QAM 04/24/19 Ibrutinib [Imbruvica] 420 mg PO QPM 04/24/19 Metoprolol Tartrate [Lopressor 100 mg Tablet] 100 mg PO Q12 04/24/19 Omeprazole 20 mg PO QAM 04/24/19 Tamsulosin HCl [Flomax 0.4 mg Cap.sr] 0.4 mg PO DAILY 04/24/19 Allergies/Adverse Reactions: sesame seed Allergy (Intermediate, Verified 04/24/19 16:59) Hives Review of Systems ROS unobtainable: Due to mental status Physical Exam Vital Signs: Temp Pulse Resp BP Pulse Ox 100.8 F H 75 20 133/76 H 100 04/24/19 16:59 04/24/19 16:59 04/24/19 19:22 04/24/19 19:22 04/24/19 19:22 Intake & Output 04/22/19 04/23/19 04/24/19 23:59 23:59 23:59 Intake Total 1000 Balance 1000 Weight 105.687 kg General appearance: PRESENT: no acute distress, cooperative Head exam: PRESENT: atraumatic, normocephalic Eye exam: PRESENT: conjunctiva pink. ABSENT: conjunctival injection, scleral icterus Ear exam: PRESENT: normal external ear exam. ABSENT: bleeding, drainage Mouth exam: PRESENT: dry mucosa, neck supple Neck exam: ABSENT: thyromegaly, tracheal deviation Respiratory exam: PRESENT: clear to auscultation jason, symmetrical, unlabored Cardiovascular exam: PRESENT: RRR. ABSENT: clicks, gallop, rubs Pulses: PRESENT: normal radial pulses, normal dorsalis pedis pul Vascular exam: PRESENT: normal capillary refill. ABSENT: pallor GI/Abdominal exam: PRESENT: normal bowel sounds, soft Rectal exam: PRESENT: deferred Gentrourinary exam: PRESENT: indwelling catheter. ABSENT: urethral discharge Extremities exam: ABSENT: joint swelling, pedal edema Musculoskeletal exam: ABSENT: deformity, dislocation Neurological exam: PRESENT: altered - Lethargic and confused, CN II-XII grossly intact Psychiatric exam: PRESENT: flat affect, other - Lethargic Skin exam: PRESENT: dry, intact, warm. ABSENT: jaundice, rash, urticaria Results Laboratory Results: 04/24/19 16:50 04/24/19 16:50 04/24/19 04/24/19 04/24/19 16:50 16:50 16:50 WBC 6.8 RBC 4.21 L Hgb 12.5 L Hct 38.0 MCV 90 MCH 29.7 MCHC 32.9 RDW 14.7 H Plt Count 62 L Seg Neutrophils % 79.4 H VBG pH 7.42 VBG pCO2 49.0 VBG HCO3 31.1 VBG Base Excess 5.6 Sodium 136.3 L Potassium 3.8 Chloride 97 L Carbon Dioxide 30 Anion Gap 9 BUN 51 H Creatinine 3.18 H Est GFR ( Amer) 23 L Glucose 109 Lactic Acid Calcium 8.7 Total Bilirubin 1.3 AST 25 Alkaline Phosphatase 74 Total Protein 5.5 L Albumin 3.2 L Urine Color Urine Appearance Urine pH Ur Specific [place] Urine Protein Urine Glucose (UA) Urine Ketones Urine Blood Urine RBC (Auto) 04/24/19 04/24/19 16:50 18:25 WBC RBC Hgb Hct MCV MCH MCHC RDW Plt Count Seg Neutrophils % VBG pH VBG pCO2 VBG HCO3 VBG Base Excess Sodium Potassium Chloride Carbon Dioxide Anion Gap BUN Creatinine Est GFR ( Amer) Glucose Lactic Acid 1.6 Calcium Total Bilirubin AST Alkaline Phosphatase Total Protein Albumin Urine Color YELLOW Urine Appearance CLOUDY Urine pH 7.0 Ur Specific [place] 1.008 Urine Protein 30 H Urine Glucose (UA) NEGATIVE Urine Ketones NEGATIVE Urine Blood LARGE H Urine RBC (Auto) 75 04/24/19 16:50 NT-Pro-B Natriuret Pep 1330 H Impressions: Chest X-Ray 04/24/19 18:02 IMPRESSION: Low lung volumes. No acute cardiopulmonary finding. Assessment and Plan - Diagnosis (1) UTI (urinary tract infection) Qualifiers: Urinary tract infection type: catheter-associated UTI Indwelling urinary catheter type: indwelling urethral catheter Encounter type: initial encounter Qualified Code(s): T83.511A - Infection and inflammatory reaction due to indwelling urethral catheter, initial encounter; N39.0 - Urinary tract infection, site not specified Is this a current diagnosis for this admission?: Yes (2) HTN (hypertension) Qualifiers: Hypertension type: essential hypertension Qualified Code(s): I10 - Essential (primary) hypertension Is this a current diagnosis for this admission?: Yes (3) GERD (gastroesophageal reflux disease) Qualifiers: Esophagitis presence: esophagitis presence not specified Qualified Code(s): K21.9 - Gastro-esophageal reflux disease without esophagitis Is this a current diagnosis for this admission?: Yes (4) CKD (chronic kidney disease), stage IV Is this a current diagnosis for this admission?: Yes (5) CHF (congestive heart failure) Qualifiers: Heart failure type: unspecified Heart failure chronicity: unspecified Qualified Code(s): I50.9 - Heart failure, unspecified Is this a current diagnosis for this admission?: Yes (6) HLD (hyperlipidemia) Qualifiers: Hyperlipidemia type: unspecified Qualified Code(s): E78.5 - Hyperlipidemia, unspecified Is this a current diagnosis for this admission?: Yes (7) COPD (chronic obstructive pulmonary disease) Qualifiers: COPD type: unspecified COPD Qualified Code(s): J44.9 - Chronic obstructive pulmonary disease, unspecified Is this a current diagnosis for this admission?: Yes (8) Dementia Qualifiers: Dementia type: unspecified type Dementia behavioral disturbance: without behavioral disturbance Qualified Code(s): F03.90 - Unspecified dementia without behavioral disturbance Is this a current diagnosis for this admission?: Yes - Plan Summary Summary: Patient is admitted to the medical floor where he will receive routine supportive and symptomatic cares. He will be treated with IV antibiotics initially using Zosyn 2.25 grams IV every 12 hours. He will be continued on his usual home medications for his chronic medical problems as appropriate. He will receive Valium 5 mg IV every 4 hours as needed for anxiety, agitation or restlessness. Routine daily laboratory including a CBC and metabolic profile will be obtained as appropriate. - Time Time Spent with patient: 15-24 minutes Medications reviewed and adjusted accordingly: Yes Anticipated discharge: Home with Homehealth - Inpatient Certification Based on my medical assessment, after consideration of the patient's comorbidities, presenting symptoms, or acuity I expect that the services needed warrant INPATIENT care.: Yes I certify that my determination is in accordance with my understanding of Medicare's requirements for reasonable and necessary INPATIENT services [42 CFR 412.3e].: Yes Medical Necessity: Significant Comorbidiites Make Outpatient Treatment Too Risky, Need Close Monitoring Due to Risk of Patient Decompensation, Need for IV Antibiotics, Risk of Complication if Not Cared For in Hospital
[2019-04-25] MEDS ORDERED: PIPERACILLIN/TAZOBACTAM 2.25 GM VIAL IV ONE (00:02)
[2019-04-25] MEDS: PANTOPRAZOLE SODIUM 20 MG TABLET.DR PO SCH (05:28)
[2019-04-25] MEDS: HEPARIN SOD (PORCINE) 5,000 UNIT/ML 1 ML VIAL SUBCUT SCH ×3 (06:00→22:00)
[2019-04-25 07:29] LABS: HEMATOCRIT 36.1 % (37.9-51.0); HEMOGLOBIN 12.1 g/dL (13.5-17.0); MEAN CORPUSCULAR HEMOGLOBIN 30.3 pg (27.0-33.4); MEAN CORPUSCULAR HGB CONC 33.5 g/dL (32.0-36.0); MEAN CORPUSCULAR VOLUME 90 fl (80-97); RED BLOOD COUNT 3.99 10^6/uL (4.35-5.55); RED CELL DISTRIBUTION WIDTH 14.3 % (11.5-14.0); WHITE BLOOD COUNT 6.1 10^3/uL (4.0-10.5)
[2019-04-25 07:44] LABS: ANION GAP 7 (5-19); BLOOD UREA NITROGEN 48 mg/dL (7-20); CALCIUM 8.3 mg/dL (8.4-10.2); CARBON DIOXIDE 31 mmol/L (22-30); CHLORIDE 98 mmol/L (98-107); GLUCOSE 81 mg/dL (75-110); POTASSIUM 3.5 mmol/L (3.6-5.0)
[2019-04-25 08:16] LABS: PLATELET COUNT 58 10^3/uL (150-450)
[2019-04-25] MEDS ORDERED: PIPERACILLIN/TAZOBACTAM 2.25 GM VIAL IV SCH (10:00)
[2019-04-25] MEDS: PIPERACILLIN SODIUM/TAZOBACTAM 2.25 GM in NORMAL SALINE 50 ML IV SCH ×2 (12:39→21:22)
[2019-04-25] MEDS: DOCUSATE SODIUM 100 MG CAPSULE PO SCH ×2 (12:41→19:14)
--- NOTE | 2019-04-25 13:14 | PDOC PROGRESS REPORT ---
Subjective Progress Note for:: 04/25/19 Subjective:: Feeling slightly better today. [id number] notices an improvement. No complaints at this time. Reason For Visit: UTI Physical Exam Vital Signs: Temp Pulse Resp BP Pulse Ox 99.1 F 90 18 167/88 H 98 04/25/19 11:05 04/25/19 11:05 04/25/19 11:05 04/25/19 11:05 04/25/19 11:05 Intake & Output 04/24/19 04/25/19 04/26/19 06:59 06:59 06:59 Intake Total 1000 Output Total 1400 Balance -400 Weight 107.8 kg General appearance: PRESENT: no acute distress, cooperative, well-developed, well-nourished Head exam: PRESENT: atraumatic, normocephalic Ear exam: PRESENT: normal external ear exam. ABSENT: bleeding, drainage Mouth exam: PRESENT: moist, tongue midline Respiratory exam: PRESENT: clear to auscultation jason, symmetrical, unlabored. ABSENT: rales, rhonchi, tachypnea, wheezes Cardiovascular exam: PRESENT: RRR, +S1, +S2 GI/Abdominal exam: PRESENT: normal bowel sounds, soft. ABSENT: distended, guarding, tenderness Rectal exam: PRESENT: deferred Gentrourinary exam: PRESENT: indwelling catheter - Chronic Extremities exam: ABSENT: joint swelling, pedal edema Musculoskeletal exam: PRESENT: ambulatory. ABSENT: normal inspection Neurological exam: PRESENT: alert, awake, oriented to person, oriented to place, oriented to time, oriented to situation, CN II-XII grossly intact Psychiatric exam: PRESENT: flat affect. ABSENT: agitated, anxious Focused psych exam: ABSENT: delusional, restlessness Skin exam: PRESENT: dry, normal color, warm Results Laboratory Results: 04/25/19 06:30 04/25/19 06:30 04/24/19 04/24/19 04/24/19 16:50 16:50 16:50 WBC 6.8 RBC 4.21 L Hgb 12.5 L Hct 38.0 MCV 90 MCH 29.7 MCHC 32.9 RDW 14.7 H Plt Count 62 L Seg Neutrophils % 79.4 H VBG pH 7.42 VBG pCO2 49.0 VBG HCO3 31.1 VBG Base Excess 5.6 Sodium 136.3 L Potassium 3.8 Chloride 97 L Carbon Dioxide 30 Anion Gap 9 BUN 51 H Creatinine 3.18 H Est GFR ( Amer) 23 L Glucose 109 Lactic Acid Calcium 8.7 Magnesium Total Bilirubin 1.3 AST 25 Alkaline Phosphatase 74 Total Protein 5.5 L Albumin 3.2 L TSH Urine Color Urine Appearance Urine pH Ur Specific [facility] Urine Protein Urine Glucose (UA) Urine Ketones Urine Blood Urine RBC (Auto) 04/24/19 04/24/19 04/25/19 16:50 18:25 06:30 WBC 6.1 RBC 3.99 L Hgb 12.1 L Hct 36.1 L MCV 90 MCH 30.3 MCHC 33.5 RDW 14.3 H Plt Count 58 L Seg Neutrophils % VBG pH VBG pCO2 VBG HCO3 VBG Base Excess Sodium Potassium Chloride Carbon Dioxide Anion Gap BUN Creatinine Est GFR ( Amer) Glucose Lactic Acid 1.6 Calcium Magnesium Total Bilirubin AST Alkaline Phosphatase Total Protein Albumin TSH Urine Color YELLOW Urine Appearance CLOUDY Urine pH 7.0 Ur Specific [facility] 1.008 Urine Protein 30 H Urine Glucose (UA) NEGATIVE Urine Ketones NEGATIVE Urine Blood LARGE H Urine RBC (Auto) 75 04/25/19 04/25/19 06:30 06:30 WBC RBC Hgb Hct MCV MCH MCHC RDW Plt Count Seg Neutrophils % VBG pH VBG pCO2 VBG HCO3 VBG Base Excess Sodium 136.0 L Potassium 3.5 L Chloride 98 Carbon Dioxide 31 H Anion Gap 7 BUN 48 H Creatinine 3.12 H Est GFR ( Amer) 23 L Glucose 81 Lactic Acid Calcium 8.3 L Magnesium 1.9 Total Bilirubin AST Alkaline Phosphatase Total Protein Albumin TSH 1.32 Urine Color Urine Appearance Urine pH Ur Specific [facility] Urine Protein Urine Glucose (UA) Urine Ketones Urine Blood Urine RBC (Auto) 04/24/19 16:50 NT-Pro-B Natriuret Pep 1330 H Impressions: Chest X-Ray 04/24/19 18:02 IMPRESSION: Low lung volumes. No acute cardiopulmonary finding. Assessment and Plan - Diagnosis (1) UTI (urinary tract infection) Qualifiers: Urinary tract infection type: catheter-associated UTI Indwelling urinary catheter type: indwelling urethral catheter Encounter type: initial encounter Qualified Code(s): T83.511A - Infection and inflammatory reaction due to indwelling urethral catheter, initial encounter; N39.0 - Urinary tract infection, site not specified Is this a current diagnosis for this admission?: Yes (2) CKD (chronic kidney disease), stage IV Is this a current diagnosis for this admission?: Yes (3) GERD (gastroesophageal reflux disease) Qualifiers: Esophagitis presence: esophagitis presence not specified Qualified Code(s): K21.9 - Gastro-esophageal reflux disease without esophagitis Is this a current diagnosis for this admission?: Yes (4) HTN (hypertension) Qualifiers: Hypertension type: essential hypertension Qualified Code(s): I10 - Essential (primary) hypertension Is this a current diagnosis for this admission?: Yes (5) CHF (congestive heart failure) Qualifiers: Heart failure type: unspecified Heart failure chronicity: unspecified Qualified Code(s): I50.9 - Heart failure, unspecified Is this a current diagnosis for this admission?: Yes (6) COPD (chronic obstructive pulmonary disease) Qualifiers: COPD type: unspecified COPD Qualified Code(s): J44.9 - Chronic obstructive pulmonary disease, unspecified Is this a current diagnosis for this admission?: Yes (7) Dementia Qualifiers: Dementia type: unspecified type Dementia behavioral disturbance: without behavioral disturbance Qualified Code(s): F03.90 - Unspecified dementia without behavioral disturbance Is this a current diagnosis for this admission?: Yes (8) HLD (hyperlipidemia) Qualifiers: Hyperlipidemia type: unspecified Qualified Code(s): E78.5 - Hyperlipidemia, unspecified Is this a current diagnosis for this admission?: Yes (9) Non Hodgkin's lymphoma Qualifiers: Non-Hodgkin lymphoma type: unspecified type Lymphoma site: unspecified region Qualified Code(s): C85.90 - Non-Hodgkin lymphoma, unspecified, unspecified site Is this a current diagnosis for this admission?: Yes Plan: Continue ibrutinib (10) Urinary retention due to benign prostatic hyperplasia Is this a current diagnosis for this admission?: Yes Plan: The patient has a chronic indwelling Chan catheter that the urologist needs to place because of mechanical difficulties with insertion. He just had it replaced. His urine is growing gram-negative bacilli. Continue current antibiotics. - Plan Summary Summary: Patient is admitted to the medical floor where he will receive routine supportive and symptomatic cares. He will be treated with IV antibiotics initially using Zosyn 2.25 grams IV every 12 hours. He will be continued on his usual home medications for his chronic medical problems as appropriate. He will receive Valium 5 mg IV every 4 hours as needed for anxiety, agitation or r estlessness. Routine daily laboratory including a CBC and metabolic profile will be obtained as appropriate. 04/25/2019-the patient is feeling somewhat better. There is some leaking from around the catheter. There is good urine outflow. We have continued the patient's baseline medications including the medication for his non-Hodgkin's lymphoma. He is stable from a cardiac standpoint. Despite underlying dementia he does understand the majority of what we are discussing. We will continue cu rrent antibiotics and await identification and sensitivities of the offending bacteria - Time Time Spent with patient: 15-24 minutes Medications reviewed and adjusted accordingly: Yes Anticipated discharge: Home with Homehealth
[2019-04-25] MEDS: IMBRUVICA 420 MG PO SCH (21:22)
[2019-04-25] MEDS: ATORVASTATIN CALCIUM 40 MG TABLET PO SCH (21:26)
[2019-04-25] MEDS: CLONIDINE HCL 0.2 MG TABLET PO SCH (21:26)
[2019-04-25] MEDS: METOPROLOL TARTRATE 100 MG TABLET PO SCH (21:26)
[2019-04-25] MEDS ORDERED: IMBRUVICA 420 MG PO SCH (22:00)
[2019-04-26] MEDS: PANTOPRAZOLE SODIUM 20 MG TABLET.DR PO SCH (06:08)
[2019-04-26] MEDS: HEPARIN SOD (PORCINE) 5,000 UNIT/ML 1 ML VIAL SUBCUT SCH (08:20)
[2019-04-26] MEDS: FINASTERIDE 5 MG TABLET PO SCH (08:21)
[2019-04-26] MEDS: FEBUXOSTAT 40 MG TABLET PO SCH (08:21)
[2019-04-26] MEDS ORDERED: ACETAMINOPHEN 325 MG TABLET PO PRN (09:30)
[2019-04-26] MEDS: DOCUSATE SODIUM 100 MG CAPSULE PO SCH ×2 (09:59→17:13)
[2019-04-26] MEDS: CLONIDINE HCL 0.2 MG TABLET PO SCH ×2 (09:59→22:03)
[2019-04-26] MEDS: METOPROLOL TARTRATE 100 MG TABLET PO SCH ×2 (09:59→22:04)
[2019-04-26] MEDS: TAMSULOSIN HCL 0.4 MG CAP.SR.24H PO SCH (10:00)
[2019-04-26] MEDS: PIPERACILLIN SODIUM/TAZOBACTAM 2.25 GM in NORMAL SALINE 50 ML IV SCH ×2 (10:03→22:02)
[2019-04-26] MEDS ORDERED: INFLUENZA QUAD (6MOS+) 2019-20 VAC 0.5 ML SYR IM ONE (14:44)
[2019-04-26] MEDS: IMBRUVICA 420 MG PO SCH (22:01)
[2019-04-26] MEDS: ATORVASTATIN CALCIUM 40 MG TABLET PO SCH (22:04)
--- NOTE | 2019-04-26 22:12 | PDOC PROGRESS REPORT ---
Subjective Progress Note for:: 04/26/19 Subjective:: The staff reports decreased urine in the Chan bag. There are lumps of proteinaceous material. They are noticing leaking around the catheter. The patient's [id number] states that this is not uncommon and typically they flush the catheter when this happens. The patient otherwise is feeling good. Reason For Visit: UTI Physical Exam Vital Signs: Temp Pulse Resp BP Pulse Ox 98.1 F 65 17 140/74 H 96 04/26/19 15:37 04/26/19 15:37 04/26/19 15:37 04/26/19 15:37 04/26/19 15:37 Intake & Output 04/25/19 04/26/19 04/27/19 06:59 06:59 06:59 Intake Total 1000 750 650 Output Total 1400 400 400 Balance -400 350 250 Weight 107.8 kg 107 kg General appearance: PRESENT: no acute distress, cooperative, well-developed, well-nourished Head exam: PRESENT: atraumatic, normocephalic Respiratory exam: PRESENT: clear to auscultation jason, symmetrical, unlabored. ABSENT: rales, rhonchi, tachypnea, wheezes Cardiovascular exam: PRESENT: RRR, +S1, +S2 GI/Abdominal exam: PRESENT: normal bowel sounds, soft. ABSENT: distended, tenderness Rectal exam: PRESENT: deferred Gentrourinary exam: PRESENT: indwelling catheter Neurological exam: PRESENT: alert, awake, oriented to person, oriented to place, oriented to situation Psychiatric exam: ABSENT: agitated, anxious Results Laboratory Results: 04/25/19 06:30 04/25/19 06:30 04/24/19 16:50 NT-Pro-B Natriuret Pep 1330 H Impressions: Chest X-Ray 04/24/19 18:02 IMPRESSION: Low lung volumes. No acute cardiopulmonary finding. Assessment and Plan - Diagnosis (1) UTI (urinary tract infection) Qualifiers: Urinary tract infection type: catheter-associated UTI Indwelling urinary catheter type: indwelling urethral catheter Encounter type: initial encounter Qualified Code(s): T83.511A - Infection and inflammatory reaction due to indwelling urethral catheter, initial encounter; N39.0 - Urinary tract infection, site not specified Is this a current diagnosis for this admission?: Yes Plan: Gram-negative bacilli isolated. Hopefully identification and sensitivities will be available later today and if so the patient may be discharged. (2) CKD (chronic kidney disease), stage IV Is this a current diagnosis for this admission?: Yes Plan: Currently stable. (3) GERD (gastroesophageal reflux disease) Qualifiers: Esophagitis presence: esophagitis presence not specified Qualified Code(s): K21.9 - Gastro-esophageal reflux disease without esophagitis Is this a current diagnosis for this admission?: Yes Plan: Asymptomatic on proton pump inhibitor. (4) HTN (hypertension) Qualifiers: Hypertension type: essential hypertension Qualified Code(s): I10 - Essential (primary) hypertension Is this a current diagnosis for this admission?: Yes Plan: Continue current regimen (5) CHF (congestive heart failure) Qualifiers: Heart failure type: unspecified Heart failure chronicity: unspecified Qualified Code(s): I50.9 - Heart failure, unspecified Is this a current diagnosis for this admission?: Yes Plan: Currently asymptomatic. Continue current regimen (6) COPD (chronic obstructive pulmonary disease) Qualifiers: COPD type: unspecified COPD Qualified Code(s): J44.9 - Chronic obstructive pulmonary disease, unspecified Is this a current diagnosis for this admission?: Yes Plan: Breathing is comfortable. Continue current regimen (7) Dementia Qualifiers: Dementia type: unspecified type Dementia behavioral disturbance: without behavioral disturbance Qualified Code(s): F03.90 - Unspecified dementia without behavioral disturbance Is this a current diagnosis for this admission?: Yes Plan: Contributes to the encounter. His [id number]-[id number] does provide additional information at times. (8) HLD (hyperlipidemia) Qualifiers: Hyperlipidemia type: unspecified Qualified Code(s): E78.5 - Hyperlipidemia, unspecified Is this a current diagnosis for this admission?: Yes Plan: Continue statin therapy (9) Non Hodgkin's lymphoma Qualifiers: Non-Hodgkin lymphoma type: unspecified type Lymphoma site: unspecified huseyin on Qualified Code(s): C85.90 - Non-Hodgkin lymphoma, unspecified, unspecified site Is this a current diagnosis for this admission?: Yes Plan: Continue ibrutinib (10) Urinary retention due to benign prostatic hyperplasia Is this a current diagnosis for this admission?: Yes Plan: The patient explained how he flushes his catheter. They disconnect the bag and so I have instructed the patient's nurse to do the same. It is possible that some of the patient's infections could be due to poor technique however they have been dealing with this for many months and are comfortable with the catheter care. (11) Hearing loss Qualifiers: Hearing loss type: unspecified Laterality: bilateral Qualified Code(s): H91.93 - Unspecified hearing loss, bilateral Is this a current diagnosis for this admission?: Yes Plan: The patient's oocivwnq-hk-mkf he reports that you have to speak quite loudly and be close to the patient. He does have hearing aids and the family will try and get the patient to wear them but he typically does not wish to. - Plan Summary Summary: Patient is admitted to the medical floor where he will receive routine supportive and symptomatic cares. He will be treated with IV antibiotics initially using Zosyn 2.25 grams IV every 12 hours. He will be continued on his usual home medications for his chronic medical problems as appropriate. He will receive Valium 5 mg IV every 4 hours as needed for anxiety, agitation or restlessness. Routine daily laboratory including a CBC and metabolic profile will be obtained as appropriate. 04/25/2019-the patient is feeling somewhat better. There is some leaking from around the catheter. There is good urine outflow. We have continued the patient's baseline medications including the medication for his non-Hodgkin's lymphoma. He is stable from a cardiac standpoint. Despite underlying dementia he does understand the majority of what we are discussing. We will continue current antibiotics and await identification and sensitivities of the offending bacteria - Time Time Spent with patient: 15-24 minutes Medications reviewed and adjusted accordingly: Yes Anticipated discharge: Home with Homehealth
[2019-04-26] MEDS ORDERED: POTASSIUM CHLORIDE 10 MEQ TABLET.ER PO ONE (22:30)
[2019-04-27] MEDS: HEPARIN SOD (PORCINE) 5,000 UNIT/ML 1 ML VIAL SUBCUT SCH (06:39)
[2019-04-27] MEDS: PANTOPRAZOLE SODIUM 20 MG TABLET.DR PO SCH (06:39)
[2019-04-27 06:46] LABS: ANION GAP 10 (5-19); BLOOD UREA NITROGEN 48 mg/dL (7-20); CALCIUM 8.5 mg/dL (8.4-10.2); CARBON DIOXIDE 29 mmol/L (22-30); CHLORIDE 100 mmol/L (98-107); GLUCOSE 84 mg/dL (75-110); POTASSIUM 3.9 mmol/L (3.6-5.0)
[2019-04-27] MEDS: FEBUXOSTAT 40 MG TABLET PO SCH (07:44)
[2019-04-27] MEDS: FINASTERIDE 5 MG TABLET PO SCH (07:44)
[2019-04-27] MEDS: DOCUSATE SODIUM 100 MG CAPSULE PO SCH (10:05)
[2019-04-27] MEDS: METOPROLOL TARTRATE 100 MG TABLET PO SCH (10:05)
[2019-04-27] MEDS: CLONIDINE HCL 0.2 MG TABLET PO SCH (10:05)
[2019-04-27] MEDS: TAMSULOSIN HCL 0.4 MG CAP.SR.24H PO SCH (10:06)
[2019-04-27] MEDS: PIPERACILLIN SODIUM/TAZOBACTAM 2.25 GM in NORMAL SALINE 50 ML IV SCH (10:11)
--- NOTE | 2019-04-27 10:56 | PDOC DISCHARGE SUMMARY ---
Impression - Admit/DC Date/PCP Admission Date/Primary Care Provider: 04/24/19 19:34 Lalitha LONGORIA MD Discharge Date: 04/27/19 - Discharge Diagnosis (1) UTI (urinary tract infection) Is this a current diagnosis for this admission?: Yes (2) CKD (chronic kidney disease), stage IV Is this a current diagnosis for this admission?: Yes (3) GERD (gastroesophageal reflux disease) Is this a current diagnosis for this admission?: Yes (4) HTN (hypertension) Is this a current diagnosis for this admission?: Yes (5) CHF (congestive heart failure) Is this a current diagnosis for this admission?: Yes (6) COPD (chronic obstructive pulmonary disease) Is this a current diagnosis for this admission?: Yes (7) Dementia Is this a current diagnosis for this admission?: Yes (8) HLD (hyperlipidemia) Is this a current diagnosis for this admission?: Yes (9) Non Hodgkin's lymphoma Is this a current diagnosis for this admission?: Yes (10) Urinary retention due to benign prostatic hyperplasia Is this a current diagnosis for this admission?: Yes (11) Hearing loss Is this a current diagnosis for this admission?: Yes - Assessment Summary: Patient is admitted to the medical floor where he will receive routine supportive and symptomatic cares. He will be treated with IV antibiotics initially using Zosyn 2.25 grams IV every 12 hours. He will be continued on his usual home medications for his chronic medical problems as appropriate. He will receive Valium 5 mg IV every 4 hours as needed for anxiety, agitation or restlessness. Routine daily laboratory including a CBC and metabolic profile will be obtained as appropriate. 04/25/2019-the patient is feeling somewhat better. There is some leaking from around the catheter. There is good urine outflow. We have continued the patient's baseline medications including the medication for his non-Hodgkin's lymphoma. He is stable from a cardiac standpoint. Despite underlying dementia he does understand the majority of what we are discussing. We will continue current antibiotics and await identification and sensitivities of the offending bacteria - Additional Information Resuscitation Status: Full Code Referrals: ESEQUIEL TIMMONS MD [ACTIVE STAFF] - 05/03/19 2:15 pm (Next week) Lalitha LONGORIA MD [Primary Care Provider] - 06/04/19 11:15 am Prescriptions: Levofloxacin [Levaquin 750 mg Tablet] 750 mg PO ASDIR 10 Days #5 tablet Home Medications: Atorvastatin Calcium [Lipitor 40 mg Tablet] 40 mg PO QHS 04/24/19 Clonidine HCl [Catapres 0.2 mg Tablet] 0.2 mg PO Q12 04/24/19 Febuxostat [Uloric 40 mg Tablet] 40 mg PO QAM 04/24/19 Finasteride [Proscar 5 mg Tablet] 5 mg PO QAM 04/24/19 Furosemide [Lasix 40 mg Tablet] 40 mg PO QPM 04/24/19 Furosemide [Lasix 80 mg Tablet] 80 mg PO QAM 04/24/19 Ibrutinib [Imbruvica] 420 mg PO QPM 04/24/19 Metoprolol Tartrate [Lopressor 100 mg Tablet] 100 mg PO Q12 04/24/19 Omeprazole 20 mg PO QAM 04/24/19 Tamsulosin HCl [Flomax 0.4 mg Cap.sr] 0.4 mg PO DAILY 04/24/19 Docusate Sodium [Colace 100 mg Capsule] 100 mg PO BID capsule 04/27/19 Levofloxacin [Levaquin 750 mg Tablet] 750 mg PO ASDIR 10 Days #5 tablet 04/27/19 History of Present Illiness History of Present Illness: PEG WHITNEY is a 84 year old male with a history of dementia, chronic Chan catheter, congestive heart failure, hypertension, hyperlipidemia, peripheral vascular disease, COPD, non-Hodgkin's lymphoma and history of CVA. He recently had his chronic Chan catheter exchanged by the urologist. Family reported altered mental status. There was a similar presentation to the multiple urinary tract infections he has had in the past. Evaluation revealed pyuria. His white blood cell count was normal. He was referred to the hospital service for admission. Hospital Course Hospital Course: The patient had an unremarkable hospital course. With antibiotic therapy his mental state returned to baseline. He began to experience leaking around the Chan catheter but the patient's ygqbofck-th-vam reports that this is not unusual. There was a brief period of decreased output. The daughter reports that this is also a common occurrence and they usually disconnect the tubing and flush the Chan catheter. This was done in urine outflow resumed. His urine culture did have gram-negative bacilli. I looked back and he has had multiple cultures with not only gram-positive cocci but also gram-negative bacilli. Proteus mirabilis was identified however a second organism was present. Preliminary identification revealed Pseudomonas. In October 2018 he had another infection with Proteus and Pseudomonas. Both are sensitive to levofloxacin. I will discharge him on renal dosed levofloxacin. I discussed the case with Dr. Timmons his primary care provider and he was in agreement with the plan. Physical Exam Vital Signs: Temp Pulse Resp BP Pulse Ox 98.1 F 78 18 146/91 H 93 04/27/19 07:48 04/27/19 07:48 04/27/19 07:48 04/27/19 07:48 04/27/19 07:48 Intake & Output 04/26/19 04/27/19 04/28/19 06:59 06:59 06:59 Intake Total 750 775 Output Total 400 900 Balance 350 -125 Weight 107 kg 108.5 kg General appearance: PRESENT: no acute distress, cooperative, well-developed Respiratory exam: PRESENT: clear to auscultation jason. ABSENT: rales, rhonchi, wheezes Cardiovascular exam: PRESENT: RRR, +S1, +S2 GI/Abdominal exam: PRESENT: normal bowel sounds, soft. ABSENT: tenderness Neurological exam: PRESENT: alert, awake, oriented to person, oriented to place, oriented to situation Psychiatric exam: PRESENT: flat affect. ABSENT: agitated, anxious Results Laboratory Results: WBC 6.1 10^3/uL (4.0-10.5) 04/25/19 06:30 RBC 3.99 10^6/uL (4.35-5.55) L 04/25/19 06:30 Hgb 12.1 g/dL (13.5-17.0) L 04/25/19 06:30 Hct 36.1 % (37.9-51.0) L 04/25/19 06:30 MCV 90 fl (80-97) 04/25/19 06:30 MCH 30.3 pg (27.0-33.4) 04/25/19 06:30 MCHC 33.5 g/dL (32.0-36.0) 04/25/19 06:30 RDW 14.3 % (11.5-14.0) H 04/25/19 06:30 Plt Count 58 10^3/uL (150-450) L 04/25/19 06:30 Lymph % (Auto) 8.4 % (13-45) L 04/24/19 16:50 [place] % (Auto) 11.8 % (3-13) 04/24/19 16:50 Eos % (Auto) 0.0 % (0-6) 04/24/19 16:50 Baso % (Auto) 0.4 % (0-2) 04/24/19 16:50 Absolute Neuts (auto) 5.4 10^3/uL (1.7-8.2) 04/24/19 16:50 Absolute Lymphs (auto) 0.6 10^3/uL (0.5-4.7) 04/24/19 16:50 Absolute Monos (auto) 0.8 10^3/uL (0.1-1.4) 04/24/19 16:50 Absolute Eos (auto) 0.0 10^3/uL (0.0-0.6) 04/24/19 16:50 Absolute Basos (auto) 0.0 10^3/uL (0.0-0.2) 04/24/19 16:50 Seg Neutrophils % 79.4 % (42-78) H 04/24/19 16:50 PT 14.2 SEC (11.4-15.4) 04/24/19 16:50 INR 1.10 04/24/19 16:50 VBG pH 7.42 (7.30-7.42) 04/24/19 16:50 VBG pCO2 49.0 mmHg (35-63) 04/24/19 16:50 VBG HCO3 31.1 mmol/L (20-32) 04/24/19 16:50 VBG Base Excess 5.6 mmol/L 04/24/19 16:50 Sodium 138.8 mmol/L (137-145) 04/27/19 05:30 Potassium 3.9 mmol/L (3.6-5.0) 04/27/19 05:30 Chloride 100 mmol/L (98-107) 04/27/19 05:30 Carbon Dioxide 29 mmol/L (22-30) 04/27/19 05:30 Anion Gap 10 (5-19) 04/27/19 05:30 BUN 48 mg/dL (7-20) H 04/27/19 05:30 Creatinine 3.42 mg/dL (0.52-1.25) H 04/27/19 05:30 Est GFR ( Amer) 21 (>60) L 04/27/19 05:30 Est GFR (MDRD) Non-Af 17 (>60) L 04/27/19 05:30 Glucose 84 mg/dL (75-110) 04/27/19 05:30 POC Glucose 95 mg/dL (70-110) 04/24/19 18:30 Lactic Acid 1.6 mmol/L (0.7-2.1) 04/24/19 16:50 Calcium 8.5 mg/dL (8.4-10.2) 04/27/19 05:30 Magnesium 1.9 mg/dL (1.6-2.3) 04/25/19 06:30 Total Bilirubin 1.3 mg/dL (0.2-1.3) 04/24/19 16:50 Direct Bilirubin 0.2 mg/dL (0.0-0.4) 04/24/19 16:50 Neonat Total Bilirubin Not Reportable 04/24/19 16:50 Neonat Direct Bilirubin Not Reportable 04/24/19 16:50 Neonat Indirect Bili Not Reportable 04/24/19 16:50 AST 25 U/L (17-59) 04/24/19 16:50 ALT 14 U/L (<50) 04/24/19 16:50 Alkaline Phosphatase 74 U/L (38-126) 04/24/19 16:50 NT-Pro-B Natriuret Pep 1330 pg/mL (<450) H 04/24/19 16:50 Total Protein 5.5 g/dL (6.3-8.2) L 04/24/19 16:50 Albumin 3.2 g/dL (3.5-5.0) L 04/24/19 16:50 TSH 1.32 uIU/mL (0.47-4.68) 04/25/19 06:30 Urine Color YELLOW 04/24/19 18:25 Urine Appearance CLOUDY 04/24/19 18:25 Urine pH 7.0 (5.0-9.0) 04/24/19 18:25 Ur Specific [place] 1.008 04/24/19 18:25 Urine Protein 30 mg/dL (NEGATIVE) H 04/24/19 18:25 Urine Glucose (UA) NEGATIVE mg/dL (NEGATIVE) 04/24/19 18:25 Urine Ketones NEGATIVE mg/dL (NEGATIVE) 04/24/19 18:25 Urine Blood LARGE (NEGATIVE) H 04/24/19 18:25 Urine Nitrite (Reflex) NEGATIVE (NEGATIVE) 04/24/19 18:25 Urine Bilirubin NEGATIVE (NEGATIVE) 04/24/19 18:25 Urine Urobilinogen NEGATIVE mg/dL (<2.0) 04/24/19 18:25 Leukocyte Esterase Rfl LARGE (NEGATIVE) H 04/24/19 18:25 Urine RBC (Auto) 75 /HPF 04/24/19 18:25 Urine WBC (Reflex) > 182 /HPF 04/24/19 18:25 Urine WBC Clumps MANY /HPF 04/24/19 18:25 Amorphous Sediment Auto TRACE /HPF 04/24/19 18:25 Urine Mucus (Auto) RARE /LPF 04/24/19 18:25 Urine Ascorbic Acid NEGATIVE (NEGATIVE) 04/24/19 18:25 Influenza A (Rapid) NEGATIVE (NEGATIVE) 04/24/19 18:25 Influenza B (Rapid) NEGATIVE (NEGATIVE) 04/24/19 18:25 04/24/19 16:50 NT-Pro-B Natriuret Pep 1330 H Impressions: Chest X-Ray 04/24/19 18:02 IMPRESSION: Low lung volumes. No acute cardiopulmonary finding. Plan Health Concerns: Continue recurrence of urinary tract infections with chronic indwelling Chan catheter Plan of Treatment: Return to previous home medication regimen with the addition of levofloxacin 750 mg every 48 hours for 10 days. Goals: Resolution of current infection Time Spent: Greater than 30 Minutes Stroke Is this a Stroke Patient?: No Acute Heart Failure - Is this a Heart Failure Patient?: No
[2019-04-27 11:09] VITALS: BP 141/70
== END 2019-04-27 11:55 | disposition home health service (06) | DRG 699 ==
LOC: ER 16:41 → EH 19:34 → 5 21:44
PROVIDERS: ADMIT Emergency Medicine; ATTEND Emergency Medicine
DX: T83.511A Infection and inflammatory reaction due to indwelling urethral catheter, initial encounter (principal); N17.9 Acute kidney failure, unspecified; C85.90 Non-Hodgkin lymphoma, unspecified, unspecified site; N18.4 Chronic kidney disease, stage 4 (severe); K21.9 Gastro-esophageal reflux disease without esophagitis; J44.9 Chronic obstructive pulmonary disease, unspecified; F03.90 Unspecified dementia, unspecified severity, without behavioral disturbance, psychotic disturbance, mood disturbance, and anxiety; I12.9 Hypertensive chronic kidney disease with stage 1 through stage 4 chronic kidney disease, or unspecified chronic kidney disease; E78.5 Hyperlipidemia, unspecified; N40.1 Benign prostatic hyperplasia with lower urinary tract symptoms; R33.8 Other retention of urine; I73.9 Peripheral vascular disease, unspecified; Y84.6 Urinary catheterization as the cause of abnormal reaction of the patient, or of later complication, without mention of misadventure at the time of the procedure; H91.93 Unspecified hearing loss, bilateral; N39.0 Urinary tract infection, site not specified; M10.9 Gout, unspecified; E78.00 Pure hypercholesterolemia, unspecified; Z79.899 Other long term (current) drug therapy; Z86.718 Personal history of other venous thrombosis and embolism; Z85.46 Personal history of malignant neoplasm of prostate; Z87.891 Personal history of nicotine dependence; Z91.018 Allergy to other foods; Z90.5 Acquired absence of kidney
CPT/HCPCS: 36415; 71045; 80048; 80053; 81001; 82803; 82962; 83605; 83735; 83880; 84443; 85025; 85027; 85610; 87040; 87086; 87088; 87186; 87804; 93005; 93010; 96365; 96367; 99285; J2543; J3370; J3490; J7030

== ENCOUNTER → 2019-05-29 | Outpatient (CLI) | payer MEDICARE, OTHER ==
[2019-05-29 11:28] LABS: ABSOLUTE EOSINOPHILS # (AUTO) 0.2 10^3/uL (0.0-0.6); ABSOLUTE LYMPHOCYTES (AUTO) 1.7 10^3/uL (0.5-4.7); ABSOLUTE MONOCYTES (AUTO) 0.7 10^3/uL (0.1-1.4); ABSOLUTE NEUT (AUTO) 4.2 10^3/uL (1.7-8.2); BASOPHILS % (AUTO) 0.7 % (0-2); EOSINOPHILS % (AUTO) 2.4 % (0-6); HEMATOCRIT 39.6 % (37.9-51.0); HEMOGLOBIN 13.1 g/dL (13.5-17.0); LYMPHOCYTES % (AUTO) 25.6 % (13-45); MEAN CORPUSCULAR HEMOGLOBIN 29.8 pg (27.0-33.4); MEAN CORPUSCULAR VOLUME 90 fl (80-97); MONOCYTES % (AUTO) 9.7 % (3-13); RED BLOOD COUNT 4.39 10^6/uL (4.35-5.55); SEGMENTED NEUTROPHILS % (AUTO) 61.6 % (42-78); TOTAL CELLS COUNTED % (AUTO) 100 %; WHITE BLOOD COUNT 6.8 10^3/uL (4.0-10.5)
[2019-05-29 11:44] LABS: ALBUMIN 3.6 g/dL (3.5-5.0); ALKALINE PHOSPHATASE 78 U/L (38-126); ANION GAP 7 (5-19); ASPARTATE AMINO TRANSFERASE 22 U/L (17-59); BILIRUBIN,DIRECT 0.3 mg/dL (0.0-0.4); BILIRUBIN,TOTAL 0.8 mg/dL (0.2-1.3); BLOOD UREA NITROGEN 43 mg/dL (7-20); CALCIUM 8.8 mg/dL (8.4-10.2); CARBON DIOXIDE 36 mmol/L (22-30); CHLORIDE 97 mmol/L (98-107); GLUCOSE 86 mg/dL (75-110); PHOSPHORUS 3.9 mg/dL (2.5-4.5); POTASSIUM 4.4 mmol/L (3.6-5.0); TOTAL PROTEIN 6.5 g/dL (6.3-8.2)
[2019-05-29 13:06] LABS: PLATELET COUNT 78 10^3/uL (150-450)
== END ==
LOC: OD 10:42
PROVIDERS: ATTEND Internal Medicine Nephrology
DX: I12.9 Hypertensive chronic kidney disease with stage 1 through stage 4 chronic kidney disease, or unspecified chronic kidney disease (principal); N18.4 Chronic kidney disease, stage 4 (severe); N25.0 Renal osteodystrophy
CPT/HCPCS: 36415; 80053; 83735; 83970; 84100; 85025

== ENCOUNTER → 2019-06-12 | Outpatient (CLI) | payer MEDICARE, OTHER ==
--- NOTE | 2019-06-12 13:25 | RADIOLOGY REPORT (SQ) ---
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 COMPARISON: 11/28/2018 TECHNIQUE: CT scan of the chest performed using helical scanning technique without dynamic intraveno us contrast injection. Images reviewed with lung, soft tissue and bone windows. Reconstructed miles l and sagittal MPR images reviewed. All images stored on PACS. All CT scanners at this facility use dose modulation, iterative reconstruction, and/or weight based d osing when appropriate to reduce radiation dose to as low as reasonably achievable (ALARA). [facility]: Dose Right [facility]: CareDose [facility]: Dose Right [facility]: Teradose 4D [facility]: [employer] RADIATION DOSE: CT Rad equipment meets quality standard of care and radiation dose reduction techniq ues were employed. CTDIvol: 13.1 - 15.3 mGy. DLP: 1289 mGy-cm. . LIMITATIONS: None. FINDINGS: AXILLAE: No adenopathy. CHEST WALL: No masses. No subcutaneous air. LUNGS: No nodules or masses. No pneumothorax. No infiltrates. PLEURA: No effusions. No calcifications. THYROID: No masses or significant asymmetry. HILAR AND MEDIASTINAL STRUCTURES: No identified masses or abnormal nodes. 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 HEART: No pericardial effusion. HARDWARE AND LIFELINES: None. BONES: No significant finding. OTHER: No other significant finding. 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 No other significant findings in the chest. COMPARISON: None. RADIATION DOSE: CT Rad equipment meets quality standard of care and radiation dose reduction techniq ues were employed. CTDIvol: 13.1 - 15.3 mGy. DLP: 1289 mGy-cm. mGy. TECHNIQUE: CT scan of the abdomen and pelvis performed without contrast using helical scanning techn ique with dynamic intravenous contrast injection. Images reviewed with lung, soft tissue and bone wi ndows. Reconstructed coronal and sagittal MPR images reviewed. Delayed images for evaluation of the urinary system also acquired and evaluated. All images stored on PACS. All CT scanners at this facility use dose modulation, iterative reconstruction, and/or weight based d osing when appropriate to reduce radiation dose to as low as reasonably achievable (ALARA). [facility]: Dose Right [facility]: [employer] [facility]: Dose Right [facility]: Teradose 4D [facility]: [employer] FINDINGS: LIVER: Normal size. No masses. No dilated ducts. SPLEEN: Normal size. No focal lesions. PANCREAS: No masses. No significant calcifications. No adjacent inflammation or peripancreatic flui d collections. Pancreatic duct not dilated. GALLBLADDER: Surgically absent. ADRENAL GLANDS: No significant masses or asymmetry. RIGHT KIDNEY AND URETER: No solid masses. Marked cortical thinning. Multiple cysts. No significan t calcifications. No hydronephrosis or hydroureter. LEFT KIDNEY AND URETER: Surgically absent. AORTA AND VESSELS: No aneurysm. No dissection. Renal arteries, SMA, celiac without stenosis. An IVC filter is present. RETROPERITONEUM: No retroperitoneal adenopathy, hemorrhage or masses. LARGE AND SMALL BOWEL: No dilatation. No masses. No wall thickening. APPENDIX: Not identified. ABDOMINAL WALL: No hernia or masses. PERITONEAL CAVITY: No free air. No free fluid. No peritoneal implants or masses. PELVIS: There is a Chan catheter in the bladder. No pelvic mass or fluid collection. BONES: No significant or acute findings. OTHER: No other significant finding. IMPRESSION: Multiple right renal cysts with cortical thinning. No metastatic disease in the abdomen or pelvis. TECHNICAL DOCUMENTATION: JOB ID: [id number] Quality ID # [id number]: Final reports with documentation of one or more dose reduction techniques (e.g., Au tomated exposure control, adjustment of the mA and/or kV according to patient size, use of iterative reconstruction technique) 2010 [employer]- All Rights Reserved Reading location - IP/workstation name: [email or web address]
--- NOTE | 2019-06-12 13:25 | RADIOLOGY REPORT (SQ) ---
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 COMPARISON: 11/28/2018 TECHNIQUE: CT scan of the chest performed using helical scanning technique without dynamic intraveno us contrast injection. Images reviewed with lung, soft tissue and bone windows. Reconstructed miles l and sagittal MPR images reviewed. All images stored on PACS. All CT scanners at this facility use dose modulation, iterative reconstruction, and/or weight based d osing when appropriate to reduce radiation dose to as low as reasonably achievable (ALARA). [facility]: Dose Right [facility]: CareDose [facility]: Dose Right [facility]: Teradose 4D [facility]: [employer] RADIATION DOSE: CT Rad equipment meets quality standard of care and radiation dose reduction techniq ues were employed. CTDIvol: 13.1 - 15.3 mGy. DLP: 1289 mGy-cm. . LIMITATIONS: None. FINDINGS: AXILLAE: No adenopathy. CHEST WALL: No masses. No subcutaneous air. LUNGS: No nodules or masses. No pneumothorax. No infiltrates. PLEURA: No effusions. No calcifications. THYROID: No masses or significant asymmetry. HILAR AND MEDIASTINAL STRUCTURES: No identified masses or abnormal nodes. 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 HEART: No pericardial effusion. HARDWARE AND LIFELINES: None. BONES: No significant finding. OTHER: No other significant finding. 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 No other significant findings in the chest. COMPARISON: None. RADIATION DOSE: CT Rad equipment meets quality standard of care and radiation dose reduction techniq ues were employed. CTDIvol: 13.1 - 15.3 mGy. DLP: 1289 mGy-cm. mGy. TECHNIQUE: CT scan of the abdomen and pelvis performed without contrast using helical scanning techn ique with dynamic intravenous contrast injection. Images reviewed with lung, soft tissue and bone wi ndows. Reconstructed coronal and sagittal MPR images reviewed. Delayed images for evaluation of the urinary system also acquired and evaluated. All images stored on PACS. All CT scanners at this facility use dose modulation, iterative reconstruction, and/or weight based d osing when appropriate to reduce radiation dose to as low as reasonably achievable (ALARA). [facility]: Dose Right [facility]: [facility]Care [facility]: Dose Right [facility]: Teradose 4D [facility]: [employer] FINDINGS: LIVER: Normal size. No masses. No dilated ducts. SPLEEN: Normal size. No focal lesions. PANCREAS: No masses. No significant calcifications. No adjacent inflammation or peripancreatic flui d collections. Pancreatic duct not dilated. GALLBLADDER: Surgically absent. ADRENAL GLANDS: No significant masses or asymmetry. RIGHT KIDNEY AND URETER: No solid masses. Marked cortical thinning. Multiple cysts. No significan t calcifications. No hydronephrosis or hydroureter. LEFT KIDNEY AND URETER: Surgically absent. AORTA AND VESSELS: No aneurysm. No dissection. Renal arteries, SMA, celiac without stenosis. An IVC filter is present. RETROPERITONEUM: No retroperitoneal adenopathy, hemorrhage or masses. LARGE AND SMALL BOWEL: No dilatation. No masses. No wall thickening. APPENDIX: Not identified. ABDOMINAL WALL: No hernia or masses. PERITONEAL CAVITY: No free air. No free fluid. No peritoneal implants or masses. PELVIS: There is a Chan catheter in the bladder. No pelvic mass or fluid collection. BONES: No significant or acute findings. OTHER: No other significant finding. IMPRESSION: Multiple right renal cysts with cortical thinning. No metastatic disease in the abdomen or pelvis. TECHNICAL DOCUMENTATION: JOB ID: [id number] Quality ID # [id number]: Final reports with documentation of one or more dose reduction techniques (e.g., Au tomated exposure control, adjustment of the mA and/or kV according to patient size, use of iterative reconstruction technique) 2010 [employer]- All Rights Reserved Reading location - IP/workstation name: [email or web address]
== END ==
LOC: RAD 08:53
PROVIDERS: ATTEND Internal Medicine
DX: C82.38 Follicular lymphoma grade IIIa, lymph nodes of multiple sites (principal); Q61.02 Congenital multiple renal cysts
CPT/HCPCS: 71250; 74176

== ENCOUNTER → 2019-10-01 | Outpatient (CLI) | payer MEDICARE, OTHER ==
[2019-10-01 12:01] LABS: ABSOLUTE EOSINOPHILS # (AUTO) 0.1 10^3/uL (0.0-0.6); ABSOLUTE LYMPHOCYTES (AUTO) 1.8 10^3/uL (0.5-4.7); ABSOLUTE MONOCYTES (AUTO) 0.6 10^3/uL (0.1-1.4); BASOPHILS % (AUTO) 0.5 % (0-2); EOSINOPHILS % (AUTO) 1.6 % (0-6); HEMATOCRIT 41.9 % (37.9-51.0); HEMOGLOBIN 13.8 g/dL (13.5-17.0); LYMPHOCYTES % (AUTO) 23.9 % (13-45); MEAN CORPUSCULAR HGB CONC 32.9 g/dL (32.0-36.0); MEAN CORPUSCULAR VOLUME 91 fl (80-97); MONOCYTES % (AUTO) 7.5 % (3-13); RED BLOOD COUNT 4.58 10^6/uL (4.35-5.55); RED CELL DISTRIBUTION WIDTH 14.4 % (11.5-14.0); SEGMENTED NEUTROPHILS % (AUTO) 66.5 % (42-78); TOTAL CELLS COUNTED % (AUTO) 100 %; WHITE BLOOD COUNT 7.5 10^3/uL (4.0-10.5)
[2019-10-01 12:18] LABS: ANION GAP 6 (5-19); BLOOD UREA NITROGEN 47 mg/dL (7-20); CALCIUM 8.9 mg/dL (8.4-10.2); CARBON DIOXIDE 34 mmol/L (22-30); CHLORIDE 99 mmol/L (98-107); GLUCOSE 87 mg/dL (75-110); POTASSIUM 4.4 mmol/L (3.6-5.0)
[2019-10-01 12:40] LABS: PLATELET COUNT 83 10^3/uL (150-450)
== END ==
LOC: OD 11:39
PROVIDERS: ATTEND Internal Medicine Nephrology
DX: I12.9 Hypertensive chronic kidney disease with stage 1 through stage 4 chronic kidney disease, or unspecified chronic kidney disease (principal); N18.4 Chronic kidney disease, stage 4 (severe); N25.0 Renal osteodystrophy; D64.9 Anemia, unspecified
CPT/HCPCS: 36415; 80048; 83735; 83970; 84100; 85025